=== PATIENT | male | born 1995 | race Caucasian/White ===

== ENCOUNTER 2021-05-24 11:22 | Emergency (ER) | payer OTHER, SELFPAY ==
[2021-05-24 12:07] VITALS: BP 166/93; PULSE 91; RESP 16; TEMP 36.9; O2SAT 99; BMI 37.3
[2021-05-24 12:20] LABS: MANUAL DIFF FLAG NO
[2021-05-24 12:21] LABS: Basophils Percent Auto 0.3 % (0-2); Eosinophils Absolute Auto 0.2 X10*3/uL (0.0-0.4); Eosinophils Percent Auto 1.6 % (0-4); Hematocrit 43.7 % (42.0-52.0); Imm Gran Abs Auto 0.04 X10*3/uL (0.00-0.03); Imm Gran Pct Auto 0.4 % (0.0-0.4); Lymphocytes Absolute Auto 2.5 X10*3/uL (1.2-4.9); Lymphocytes Percent Auto 26.6 % (20-40); Mean Corpuscular HGB Conc 34.3 g/dl (31.0-36.0); Mean Corpuscular Hemoglobin 29.1 pg (27.0-33.0); Mean Corpuscular Volume 84.7 fL (80.0-98.0); Mean Platelet Volume 9.7 fL (9.4-12.4); Monocytes Absolute Auto 0.8 X10*3/uL (0.1-1.2); Monocytes Percent Auto 8.7 % (2-11); Neutrophils Absolute Auto 5.9 x10*3/uL (2.0-8.3); Neutrophils Percent Auto 62.4 % (45-73); Platelet Count 254 X10*3/uL (160-400); Red Blood Count 5.16 X10*6/uL (4.60-5.80); Red Cell Distribution Width 12.4 % (11.0-16.0); White Blood Count 9.5 X10*3/uL (4.8-10.8)
[2021-05-24 12:41] LABS: Anion Gap 9 (12-20); Blood Urea Nitrogen 16 mg/dL (9-16); Calcium 9.8 mg/dL (8.4-10.2); Carbon Dioxide 29 mmol/L (22-29); Chloride 107 mmol/L (96-108); Creatinine Clr Calc Pharmacy 152.1; Estimated Glomerular Filt Rate > 60; Glucose Random 96 mg/dL (60-115); Potassium 4.2 mmol/L (3.3-5.1); Sodium 141 mmol/L (135-145)
[2021-05-24 13:27] LABS: Appearance Urine CLOUDY; Color Urine YELLOW; Glucose Urine UA NEG (NEG); Leukocyte Esterase Urine NEG (NEG); Nitrite Urine NEG (NEG); Urine Blood NEG (NEG); Urine Ketones NEG (NEG); Urine Protein NEG (NEG-TRACE)
== END 2021-05-24 17:16 | disposition left against medical advice (07) ==
PROVIDERS: Emergency Provider Emergency Medicine; PCP Internal Medicine
DX: R42 Dizziness and giddiness (principal); R11.0 Nausea; R20.0 Anesthesia of skin
CPT/HCPCS: 36415; 80048; 81003; 85025; 99283

== ENCOUNTER 2021-05-29 16:28 | Observation (INO) | payer OTHER, SELFPAY ==
--- NOTE | ~2021-05-29 | CT_ITS ---
EXAMINATION: CT ABDOMEN AND PELVIS WITH CONTRAST CLINICAL INFORMATION: Severe epigastric pain COMPARISON: None TECHNIQUE: Multidetector volumetric images were obtained from the superior aspect of the liver through the pubic symphysis following administration 85 mL of Omnipaque 350 intravenous contrast. Sagittal and coronal reformatted images were obtained on the technologist's workstation. Oral contrast: No This CT examination was performed using dose optimization techniques as appropriate, variously including the following: *Automated exposure control *Adjustment of mA and/or kV according to patient size (this includes techniques or standardized protocols for targeted exams where dose is matched to indication/reason for exam; i.e. extremities or head) *Use of iterative reconstruction technique DLP: 811 mGy-cm FINDINGS: LUNG BASES: The visualized lung bases are unremarkable. LIVER, GALLBLADDER, AND BILIARY TREE: The liver is upper limits of normal in size with normal shape and attenuation. No focal hepatic lesion or biliary ductal dilatation is present. The gallbladder is contracted but otherwise unremarkable with no evidence of radiopaque gallstones, gallbladder wall thickening, or obvious pericholecystic inflammatory changes. PANCREAS: Unremarkable. SPLEEN: Spleen is mildly enlarged measuring 13.3 cm in greatest transverse dimension. ADRENAL GLANDS: Unremarkable. KIDNEYS AND URETERS: The kidneys are normal in size, shape, and attenuation. No hydronephrosis, hydroureter, or calculi seen. A tiny Bosniak class I subcentimeter cyst is noted at the lower pole the left kidney. No solid renal masses. No perinephric stranding. BLADDER: Unremarkable. GASTROINTESTINAL TRACT: The small and large bowel are unremarkable aside from some scattered colonic diverticula without diverticulitis. The appendix is unremarkable. ABDOMINAL WALL: No significant hernia is appreciated. LYMPH NODES: Some small shotty retroperitoneal lymph nodes are seen but there is no adenopathy. VASCULAR: Unremarkable. PELVIC VISCERA: The prostate and seminal vesicles appear normal OSSEOUS STRUCTURES: Unremarkable. CT/CT abdomen pelvis w con IMPRESSION: A cause for the patient's severe epigastric pain is not found. No significant abnormality is detected aside from some mild splenomegaly. Incidental findings as described above. Fleischner guidelines were followed.
--- NOTE | ~2021-05-29 | CT_ITS ---
EXAMINATION: CT HEAD WITHOUT CONTRAST CLINICAL INFORMATION: Syncope, lethargy. COMPARISON: None TECHNIQUE: Contiguous axial imaging was performed from the skull base to vertex without intravenous administration of contrast. Coronal and sagittal reformatted images were obtained. This CT examination was performed using dose optimization techniques as appropriate, variously including the following: *Automated exposure control *Adjustment of mA and/or kV according to patient size (this includes techniques or standardized protocols for targeted exams where dose is matched to indication/reason for exam; i.e. extremities or head) *Use of iterative reconstruction technique DLP: 787.59 mGy-cm FINDINGS: There is no evidence of acute intracranial hemorrhage or territorial infarction. No abnormal mass effect or midline shift is seen. Alicia to white matter differentiation is well preserved. No extra-axial fluid collections are identified. The ventricles are normal in size. There is no abnormal attenuation within the brain parenchyma. The osseous structures and soft tissues are normal. The mastoid air cells and visualized portions of the paranasal sinuses are well aerated. CT/CT head/brain wo con IMPRESSION: No acute intracranial pathology.
[2021-05-29 17:23] VITALS: BP 155/95; PULSE 67; RESP 18; TEMP 37.1; O2SAT 100; BMI 37.3
[2021-05-29 17:42] LABS: MANUAL DIFF FLAG NO
[2021-05-29 17:43] LABS: Basophils Percent Auto 0.1 % (0-2); Eosinophils Absolute Auto 0.1 X10*3/uL (0.0-0.4); Eosinophils Percent Auto 1.1 % (0-4); Imm Gran Abs Auto 0.03 X10*3/uL (0.00-0.03); Imm Gran Pct Auto 0.3 % (0.0-0.4); Lymphocytes Absolute Auto 2.9 X10*3/uL (1.2-4.9); Lymphocytes Percent Auto 27.5 % (20-40); Mean Corpuscular HGB Conc 34.1 g/dl (31.0-36.0); Mean Corpuscular Hemoglobin 29.1 pg (27.0-33.0); Mean Corpuscular Volume 85.4 fL (80.0-98.0); Mean Platelet Volume 9.6 fL (9.4-12.4); Monocytes Absolute Auto 0.8 X10*3/uL (0.1-1.2); Monocytes Percent Auto 7.7 % (2-11); Neutrophils Absolute Auto 6.7 x10*3/uL (2.0-8.3); Neutrophils Percent Auto 63.3 % (45-73); Platelet Count 252 X10*3/uL (160-400); Red Blood Count 5.15 X10*6/uL (4.60-5.80); Red Cell Distribution Width 12.4 % (11.0-16.0); White Blood Count 10.5 X10*3/uL (4.8-10.8)
[2021-05-29 17:45] LABS: Glucose, Whole Blood 85 mg/dL (60-115)
[2021-05-29 17:55] LABS: Ethanol < 10 mg/dL
[2021-05-29 17:58] LABS: Alanine Aminotransferase 34 U/L (0-40); Albumin Level 4.5 g/dL (3.5-5.0); Alkaline Phosphatase 72 U/L (39-117); Anion Gap 11 (12-20); Aspartate Amino Transferase 19 U/L (5-37); Bilirubin Total 0.3 mg/dL (0.0-1.0); Blood Urea Nitrogen 12 mg/dL (9-16); Carbon Dioxide 27 mmol/L (22-29); Chloride 107 mmol/L (96-108); Creatinine Clr Calc Pharmacy 145.8; Estimated Glomerular Filt Rate > 60; Glucose Random 89 mg/dL (60-115); Potassium 4.1 mmol/L (3.3-5.1); Sodium 141 mmol/L (135-145); Total Protein 6.9 g/dL (6.5-8.0)
[2021-05-29 20:07] VITALS: BP 131/79; PULSE 58; RESP 16; O2SAT 99
[2021-05-29 20:31] LABS: Appearance Urine CLEAR; Color Urine YELLOW; Glucose Urine UA NEG (NEG); Leukocyte Esterase Urine NEG (NEG); Nitrite Urine NEG (NEG); Specific Gravity - Urine >= 1.030 (1.005-1.025); Urine Blood NEG (NEG); Urine Ketones NEG (NEG); Urine Protein NEG (NEG-TRACE)
--- NOTE | 2021-05-29 20:45 | ECG_ITS ---
Test Reason : Syncope Blood Pressure : / mmHG Vent. Rate : 051 BPM Atrial Rate : 051 BPM P-R Int : 160 ms QRS Dur : 094 ms QT Int : 414 ms P-R-T Axes : 037 050 041 degrees QTc Int : 381 ms Sinus bradycardia Otherwise normal ECG No previous ECGs available Referred By: Libby Jackson Electronically Signed By:Lacho Layton
[2021-05-29 20:46] LABS: Amphetamine Screen Urine Not Detected (Not Detect); Barbiturates, Urine Not Detected (Not Detect); Benzodiazepines Screen Urine Not Detected (Not Detect); Cannabinoid Screen Urine POSITIVE (Not Detect); Cocaine Screen Urine Not Detected (Not Detect); Fentanyl, urine Not Detected (Not Detect); Opiate Screen Urine Not Detected (Not Detect); Phencyclidine Screen Urine Not Detected (Not Detect)
--- NOTE | 2021-05-29 20:56 | ED_ITS ---
HPI - General Adult General Chief complaint: Altered Mental Status Stated complaint: passing out twice a day Time Seen by Provider: 05/29/21 20:44 Source: patient Mode of arrival: ambulatory Limitations: no limitations History of Present Illness HPI narrative: This is a 26-year-old male no significant medical history presenting to the emergency department with complaints of passing out multiple times per day X 2 weeks and epigastric pain X2 hours. He tells me he has been passing out daily for the past 2 weeks. He tells me that before he passes out he feels dizzy sometimes he feels like the room is spinning around him and then he passes out to the floor he tells me that when he passes out he does lose consciousness. He tells me he is able to tell when he is going to pass out because he feels ?foggy . He tells me that this is making him very scared. I asked him how he is feeling right now and he tells me he cannot think straight. He has been evaluated for this multiple times once here, and once at [facility]. He tells me that before these 2 weeks he has never had this before. He also reports int ermittent chest pain. Today he tells me he started experiencing epigastric pain it feels like a stabbing sensation in his epigastric region, nonradiating, severe. He has never had this before. He denies shortness of breath, nausea, vomiting, abdominal pain, changes in bowel habits, vision changes, chest pain, headache, vision changes, neck pain. Patient is not sexually active. He has no concerns for STDs. Onset (ago): week(s) (2) Location: abdomen Radiation: non-radiation Severity: severe Severity scale (1-10): 10 Quality: stabbing Pain Consistency: intermittent Relieving factors: none Exacerbating factors: none Treatments prior to arrival: none Related Data Allergies Allergy/AdvReac Type Severity Reaction Status Date / Time Penicillins Allergy Rash Verified 05/29/21 17:21 Review of Systems Review of Systems: Constitutional : No Weight loss, No Fever, No Chills, No Fatigue, No Malaise ENT/Mouth : No sore throat, No Rhinorrhea Eyes: No Eye Pain, No Swelling, No Redness Cardiovascular : No Chest Pain, No SOB, No Dyspnea on Exertion, No Orthopnea, No Edema, No Palpitations Respiratory : No Cough, No Sputum, No Wheezing Gastrointestinal : No Nausea, No Vomiting, No Diarrhea, No Constipation, + abdominal Pain, No Hematochezia, No Melena Genitourinary : No Dysuria, No Urinary Frequency, No Hematuria, Musculoskeletal : No joint pain, No Myalgias, No Joint Swelling Skin : No Skin Lesions, No rash Neuro : No Weakness, No Numbness, + Dizziness, No Headache Psych : No Anxiety/Panic, No Depression All other systems reviewed and are negative Yes all other systems are reviewed and are negative [facility] Past Medical History Attestation statement: The following information was validated with the patient. Source: old records reviewed and nursing notes reviewed Social History Social History Advance Directives: No Advance Directives Information Provided: No Physical Exam ED Vital Signs: Vital Signs - 24 hr 05/29/21 17:23 05/29/21 20:07 05/29/21 21:17 Temperature 98.7 F Pulse Rate 67 58 56 Respiratory Rate 18 16 Blood Pressure 155/95 H 131/79 127/72 Pulse Oximetry 100 99 05/29/21 21:19 05/29/21 21:20 Temperature Pulse Rate 60 60 Respiratory Rate Blood Pressure 130/83 132/81 Pulse Oximetry BMI result Body Mass Index 37.3 VSS Appearance: Alert.? Oriented X3.? No acute distress.? Head: Normocephalic, atraumatic, no step-offs or deformities Eyes: Pupils equal, round and reactive to light.? ENT: Pharynx normal.? Neck: Normal inspection.? Neck supple.? CVS: Normal heart rate and rhythm.? Pulses normal.? Respiratory: No respiratory distress.? Breath sounds normal.? Abdomen: Soft and nontender.? Skin: Skin warm and dry.? Normal skin color.? Normal skin turgor.? Extremities: No lower extremity edema.? No calf ttp. 5/5 strength to bilateral upper and lower extremities Back: No midline tenderness, no C-spine tenderness, full range of motion, no CVA tenderness bilaterally Neuro: Oriented X 3.? No motor deficit.? No sensory deficit. CN 2-12 intact Course Reevaluation(s) Reevaluation #1: CBC within normal limits. No acute electrolyte abnormalities. CT of the head within normal limits. CT of the abdomen pending. Orthostatic vital signs negative. UA negative. Urine toxicology positive for marijuana. Time: 23:00 Reevaluation #2: Reviewed an EKG from [facility] that shows that the ST elevation is considered early repolarization. The EKG it [facility] was done on 05/27/2021. Based off patient's history I do not feel comfortable discharging this patient home as his symptoms have been daily for the past 2 weeks. Patient would benefit from Cardiology/neurology consult to rule out arrhythmia, or different etiologies for these sudden syncopal episodes. TT Dr. Layton with EKG and history. Awaiting cardiologys response. Time: 23:34 Reevaluation #3: Patient will be admitted to the hospitalist team. Time: 00:08 Medical Decision Making MDM Narrative Medical decision making narrative: 2150 26 yo m no pmhx presents w/ dizziness and syncopal episodes X2 weeks and epigastric pain X2 hours. PE benign. Neuro non focal. PERRL b/l. EOMI. CN 2-12 intact. RRR. Lungs clear. Abdomen soft nontender nondistended. Plan labs, CT of the head and brain, urine, EKG, cardiac monitoring. Medical Records Medical records reviewed: Yes I reviewed the patient's medical records. Lab Data Lab results reviewed: Yes I reviewed the patient's lab results. Result diagrams: 05/29/21 17:34 05/29/21 17:34 Labs: Lab Results 05/29/21 05/29/21 05/29/21 Range/Units 17:27 17:34 17:34 WBC 10.5 (4.8-10.8) X10*3/uL RBC 5.15 (4.60-5.80) X10*6/uL Hgb 15.0 (14.0-18.0) g/dl Hct 44.0 (42.0-52.0) % MCV 85.4 (80.0-98.0) fL MCH 29.1 (27.0-33.0) pg MCHC 34.1 (31.0-36.0) g/dl RDW 12.4 (11.0-16.0) % Plt Count 252 (160-400) X10*3/uL MPV 9.6 (9.4-12.4) fL Immature Gran % (Auto) 0.3 (0.0-0.4) % Neut % (Auto) 63.3 (45-73) % Lymph % (Auto) 27.5 (20-40) % Luce % (Auto) 7.7 (2-11) % Eos % (Auto) 1.1 (0-4) % Baso % (Auto) 0.1 (0-2) % Lymph # (Auto) 2.9 (1.2-4.9) X10*3/uL Luce # (Auto) 0.8 (0.1-1.2) X10*3/uL Eos # (Auto) 0.1 (0.0-0.4) X10*3/uL Baso # (Auto) 0.0 (0.0-0.2) X10*3/uL Abs Immat Gran (auto) 0.03 (0.00-0.03) X10*3/uL Absolute Neuts (auto) 6.7 (2.0-8.3) x10*3/uL Absolute Nucleated RBC 0.000 (0.0-0.012) X10*3/uL Nucleated RBC % (auto) 0.0 (0.0-0.2) /100WBC Sodium 141 (135-145) mmol/L Potassium 4.1 (3.3-5.1) mmol/L Chloride 107 (96-108) mmol/L Carbon Dioxide 27 (22-29) mmol/L Anion Gap 11 L (12-20) BUN 12 (9-16) mg/dL Creatinine 0.97 (0.5-1.4) mg/dL Estim Creat Clear Calc 145.8 Estimated GFR > 60 POC Glucose 85 (60-115) mg/dL Random Glucose 89 (60-115) mg/dL Calcium 10.0 (8.4-10.2) mg/dL Total Bilirubin 0.3 (0.0-1.0) mg/dL AST 19 (5-37) U/L ALT 34 (0-40) U/L Alkaline Phosphatase 72 (39-117) U/L Troponin I High Sens (<3.5-35.0) ng/L Total Protein 6.9 (6.5-8.0) g/dL Albumin 4.5 (3.5-5.0) g/dL Urine Color Urine Appearance Urine pH (5.0-8.0) Ur Specific [place] (1.005-1.025) Urine Protein (NEG-TRACE) MG/DL Urine Glucose (UA) (NEG) MG/DL Urine Ketones (NEG) MG/DL Urine Blood (NEG) Urine Nitrite (NEG) Ur Leukocyte Esterase (NEG) Urine Opiates Screen (Not Detect) Urine Fentanyl Screen (Not Detect) Ur Barbiturates Screen (Not Detect) Ur Phencyclidine Scrn (Not Detect) Ur Amphetamines Screen (Not Detect) U Benzodiazepines Scrn (Not Detect) Urine Cocaine Screen (Not Detect) U Marijuana (THC) Screen (Not Detect) Ethyl Alcohol mg/dL 05/29/21 05/29/21 05/29/21 Range/Units 17:34 17:34 20:20 WBC (4.8-10.8) X10*3/uL RBC (4.60-5.80) X10*6/uL Hgb (14.0-18.0) g/dl Hct (42.0-52.0) % MCV (80.0-98.0) fL MCH (27.0-33.0) pg MCHC (31.0-36.0) g/dl RDW (11.0-16.0) % Plt Count (160-400) X10*3/uL MPV (9.4-12.4) fL Immature Gran % (Auto) (0.0-0.4) % Neut % (Auto) (45-73) % Lymph % (Auto) (20-40) % Luce % (Auto) (2-11) % Eos % (Auto) (0-4) % Baso % (Auto) (0-2) % Lymph # (Auto) (1.2-4.9) X10*3/uL Luce # (Auto) (0.1-1.2) X10*3/uL Eos # (Auto) (0.0-0.4) X10*3/uL Baso # (Auto) (0.0-0.2) X10*3/uL Abs Immat Gran (auto) (0.00-0.03) X10*3/uL Absolute Neuts (auto) (2.0-8.3) x10*3/uL Absolute Nucleated RBC (0.0-0.012) X10*3/uL Nucleated RBC % (auto) (0.0-0.2) /100WBC Sodium (135-145) mmol/L Potassium (3.3-5.1) mmol/L Chloride (96-108) mmol/L Carbon Dioxide (22-29) mmol/L Anion Gap (12-20) BUN (9-16) mg/dL Creatinine (0.5-1.4) mg/dL Estim Creat Clear Calc Estimated GFR POC Glucose (60-115) mg/dL Random Glucose (60-115) mg/dL Calcium (8.4-10.2) mg/dL Total Bilirubin (0.0-1.0) mg/dL AST (5-37) U/L ALT (0-40) U/L Alkaline Phosphatase (39-117) U/L Troponin I High Sens < 3.5 (<3.5-35.0) ng/L Total Protein (6.5-8.0) g/dL Albumin (3.5-5.0) g/dL Urine Color Urine Appearance Urine pH (5.0-8.0) Ur Specific [place] (1.005-1.025) Urine Protein (NEG-TRACE) MG/DL Urine Glucose (UA) (NEG) MG/DL Urine Ketones (NEG) MG/DL Urine Blood (NEG) Urine Nitrite (NEG) Ur Leukocyte Esterase (NEG) Urine Opiates Screen Not Detected (Not Detect) Urine Fentanyl Screen Not Detected (Not Detect) Ur Barbiturates Screen Not Detected (Not Detect) Ur Phencyclidine Scrn Not Detected (Not Detect) Ur Amphetamines Screen Not Detected (Not Detect) U Benzodiazepines Scrn Not Detected (Not Detect) Urine Cocaine Screen Not Detected (Not Detect) U Marijuana (THC) Screen POSITIVE H (Not Detect) Ethyl Alcohol < 10 mg/dL 05/29/21 Range/Units 20:20 WBC (4.8-10.8) X10*3/uL RBC (4.60-5.80) X10*6/uL Hgb (14.0-18.0) g/dl Hct (42.0-52.0) % MCV (80.0-98.0) fL MCH (27.0-33.0) pg MCHC (31.0-36.0) g/dl RDW (11.0-16.0) % Plt Count (160-400) X10*3/uL MPV (9.4-12.4) fL Immature Gran % (Auto) (0.0-0.4) % Neut % (Auto) (45-73) % Lymph % (Auto) (20-40) % Luce % (Auto) (2-11) % Eos % (Auto) (0-4) % Baso % (Auto) (0-2) % Lymph # (Auto) (1.2-4.9) X10*3/uL Luce # (Auto) (0.1-1.2) X10*3/uL Eos # (Auto) (0.0-0.4) X10*3/uL Baso # (Auto) (0.0-0.2) X10*3/uL Abs Immat Gran (auto) (0.00-0.03) X10*3/uL Absolute Neuts (auto) (2.0-8.3) x10*3/uL Absolute Nucleated RBC (0.0-0.012) X10*3/uL Nucleated RBC % (auto) (0.0-0.2) /100WBC Sodium (135-145) mmol/L Potassium (3.3-5.1) mmol/L Chloride (96-108) mmol/L Carbon Dioxide (22-29) mmol/L Anion Gap (12-20) BUN (9-16) mg/dL Creatinine (0.5-1.4) mg/dL Estim Creat Clear Calc Estimated GFR POC Glucose (60-115) mg/dL Random Glucose (60-115) mg/dL Calcium (8.4-10.2) mg/dL Total Bilirubin (0.0-1.0) mg/dL AST (5-37) U/L ALT (0-40) U/L Alkaline Phosphatase (39-117) U/L Troponin I High Sens (<3.5-35.0) ng/L Total Protein (6.5-8.0) g/dL Albumin (3.5-5.0) g/dL Urine Color YELLOW Urine Appearance CLEAR Urine pH 6.0 (5.0-8.0) Ur Specific [place] >= 1.030 H (1.005-1.025) Urine Protein NEG (NEG-TRACE) MG/DL Urine Glucose (UA) NEG (NEG) MG/DL Urine Ketones NEG (NEG) MG/DL Urine Blood NEG (NEG) Urine Nitrite NEG (NEG) Ur Leukocyte Esterase NEG (NEG) Urine Opiates Screen (Not Detect) Urine Fentanyl Screen (Not Detect) Ur Barbiturates Screen (Not Detect) Ur Phencyclidine Scrn (Not Detect) Ur Amphetamines Screen (Not Detect) U Benzodiazepines Scrn (Not Detect) Urine Cocaine Screen (Not Detect) U Marijuana (THC) Screen (Not Detect) Ethyl Alcohol mg/dL ECG Data Attestation: I personally reviewed and interpreted this ECG as follows: Prior ECG tracings: not available for review Interpretation: Ventricular rate of 51, OH normal, QRS normal, QT/QTC normal. EKG shows sinus bradycardia otherwise normal ECG. No ST elevations or inversions concerning for ischemia. No previous EKGs to compare with. Critical Care Time Critical Care Time Critical Care Time: No Discharge Plan Discharge Clinical Impression: Dizziness, Syncope Patient Disposition: Admitted As Inpatient
[2021-05-29 21:17] VITALS: BP 127/72; PULSE 56
[2021-05-29 21:19] VITALS: BP 130/83; PULSE 60
[2021-05-29 21:20] VITALS: BP 132/81; PULSE 60
--- NOTE | 2021-05-29 22:13 | PC.NURSE ---
20g placed in Right arm. Rn notified.
[2021-05-29] MEDS: iohexoL 350 MG/ML 100 ML INFUS..BTL IV (22:38)
[2021-05-29 23:45] LABS: Troponin-I High Sensitivity < 3.5 ng/L (<3.5-35.0)
--- NOTE | 2021-05-30 | EEG_ITS ---
This is a 16-channel EEG with an EKG lead. The patient is reported awake and drowsy during the tracing. Background EEG rhythm during wakefulness is 8 to 10 hertz, 5 to 30 microvolt posteriorly and lower amplitude fast anteriorly. Photic stimulation does not produce any significant abnormality. Hyperventilation is not performed. The patient transitioned into drowsiness with no significant abnormality. Cardiac lead does not reveal any significant abnormality. IMPRESSION: No significant abnormality noted on this electroencephalogram. MD MITCHELL Elliott/DEB / [id number]
--- NOTE | 2021-05-30 01:23 | PM.IMHP ---
History of Present Illness Date of Service: 05/30/21 Chief Complaint: syncope 26-year-old male with a past medical history of ADHD, insomnia, mood disorder, tobacco dependence, history of cannabis use; presented to the hospital today with a chief complaint of syncope. Patient reported that over the past 2 weeks he has been having multiple episodes of syncope. Reports that he had a prodrome of numbness in his hands bilaterally, lightheaded and dizziness, nausea followed by syncope lasting anywhere between 10-15 minutes; denies any blunt falls or trauma. Post episode he feels slightly confused; and continues to feel dizzy and nauseous. Also reported that he had at least 1 episode of syncope each day the past 2 weeks. Has presented to the ER at [facility], subsequently discharged home given negative workup; noted to have fingerstick glucose in 70s; given glucose which improved. Mentions that continued to have syncopal episodes hence decided to come to the ER for further evaluation. Also reports intermittent episodes of chest pains located in the center of the chest; no associated sweating. Last chest pain was 3 days ago. Denies any headaches, focal weakness. Denies any fever chills cough. Patient reports that he takes Seroquel for sleep; has been taking it for 4 years and never had any concerns about a. Also reports that he takes Vyvanse for his ADHD and Lamictal for his mood disorder. Review of all other systems is negative except mentioned above ER course: Per ER team patient's EKG was nonischemic; troponin was negative; also mentioned that cardiology was notified. CT head and CT abdomen showed no acute findings; admitted to the hospital for observation. [facility] Social History Advance Directives: No Advance Directives Information Provided: No Meds Allergies Allergy/AdvReac Type Severity Reaction Status Date / Time Penicillins Allergy Rash Verified 05/29/21 17:21 Active Medications: Current Medications Acetaminophen (Acetaminophen 325 Mg Tablet) 650 mg PO Q6H PRN PRN Reason: Pain, Mild (Pain Scale 1-3) Heparin Sodium (Porcine) (Heparin Sodium,Porcine 5,000 Unit/Ml Vial) 5,000 unit SUBCUT Q8H SRINATH Melatonin (Melatonin 3 Mg Tablet) 6 mg PO BEDTIME PRN PRN Reason: Insomnia Pharmacy Consult (Consult Rx Perform Med Rec) 1 each MISCELLANE ONCE PRN PRN Reason: Consult order Senna (Sennosides 8.6 Mg Tablet) 17.2 mg PO BEDTIME PRN PRN Reason: Constipation Sodium Chloride (0.9 % Sodium Chloride Flush 3 Ml Syringe) 3 ml IVFLUSH QSHIFT SRINATH Physical Exam Vital Signs and Narrative: Vital Signs: Last Vital Signs Temp 98.7 F 05/29/21 17:23 Pulse 60 05/29/21 21:20 Resp 16 05/29/21 20:07 BP 132/81 05/29/21 21:20 Pulse Ox 99 05/29/21 20:07 BMI result Body Mass Index 37.3 Gen: Appears be in no acute distress HEENT: NCAT, Moist mucosa. Pulmonary: Vesicular breath sounds, fair air entry CVS: Normal S1-S2 Abdomen: BS+, Soft, Nontender Extremities: Warm well perfused Neuro: Alert and awake. Results Labs CBC and Chem 7: 05/29/21 17:34 05/29/21 17:34 Labs: Laboratory Results - last 24 hr 05/29/21 05/29/21 05/29/21 17:27 17:34 17:34 MCV 85.4 MCH 29.1 MCHC 34.1 RDW 12.4 Plt Count 252 MPV 9.6 Immature Gran % (Auto) 0.3 Neut % (Auto) 63.3 Lymph % (Auto) 27.5 [place] % (Auto) 7.7 Eos % (Auto) 1.1 Baso % (Auto) 0.1 Lymph # (Auto) 2.9 [place] # (Auto) 0.8 Eos # (Auto) 0.1 Baso # (Auto) 0.0 Abs Immat Gran (auto) 0.03 Absolute Neuts (auto) 6.7 Absolute Nucleated RBC 0.000 Nucleated RBC % (auto) 0.0 Anion Gap 11 L Estim Creat Clear Calc 145.8 Estimated GFR > 60 POC Glucose 85 Random Glucose 89 Calcium 10.0 Total Bilirubin 0.3 AST 19 ALT 34 Alkaline Phosphatase 72 Total Protein 6.9 Albumin 4.5 Urine Color Urine Appearance Urine pH Ur Specific [place] Urine Protein Urine Glucose (UA) Urine Ketones Urine Blood Urine Nitrite Ur Leukocyte Esterase Urine Opiates Screen Urine Fentanyl Screen Ur Barbiturates Screen Ur Phencyclidine Scrn Ur Amphetamines Screen U Benzodiazepines Scrn Urine Cocaine Screen U Marijuana (THC) Screen Ethyl Alcohol 05/29/21 05/29/21 05/29/21 17:34 20:20 20:20 MCV MCH MCHC RDW Plt Count MPV Immature Gran % (Auto) Neut % (Auto) Lymph % (Auto) [place] % (Auto) Eos % (Auto) Baso % (Auto) Lymph # (Auto) [place] # (Auto) Eos # (Auto) Baso # (Auto) Abs Immat Gran (auto) Absolute Neuts (auto) Absolute Nucleated RBC Nucleated RBC % (auto) Anion Gap Estim Creat Clear Calc Estimated GFR POC Glucose Random Glucose Calcium Total Bilirubin AST ALT Alkaline Phosphatase Total Protein Albumin Urine Color YELLOW Urine Appearance CLEAR Urine pH 6.0 Ur Specific [place] >= 1.030 H Urine Protein NEG Urine Glucose (UA) NEG Urine Ketones NEG Urine Blood NEG Urine Nitrite NEG Ur Leukocyte Esterase NEG Urine Opiates Screen Not Detected Urine Fentanyl Screen Not Detected Ur Barbiturates Screen Not Detected Ur Phencyclidine Scrn Not Detected Ur Amphetamines Screen Not Detected U Benzodiazepines Scrn Not Detected Urine Cocaine Screen Not Detected U Marijuana (THC) Screen POSITIVE H Ethyl Alcohol < 10 Imaging Radiologist's Impressions: Impressions Abdomen/Pelvis CT 05/29/21 22:45 IMPRESSION: A cause for the patient's severe epigastric pain is not found. No significant abnormality is detected aside from some mild splenomegaly. Incidental findings as described above. Fleischner guidelines were followed. Head CT 05/29/21 22:45 IMPRESSION: No acute intracranial pathology. Assessment and Plan (1) Syncope: Status: Acute Plan 26-year-old male with a past medical history of ADHD, insomnia, mood disorder, tobacco dependence, history of cannabis use; presented to the hospital today with a chief complaint of syncope. Patient reported that over the past 2 weeks he has been having multiple episodes of syncope. Recurrent syncope: EKG showed sinus Ed to 54; patient had a prodrome of dizziness-like room spinning, followed by nausea; question vasovagal. Exam nonfocal, CT head showed no acute findings Patient on Seroquel at home- currently orthostatics negative; QTC within normal limits; patient reports he has been taking Seroquel for many years and never had any symptoms like this in the past. Will also obtain EEG. 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 For all other chronic conditions, home medications continued DVT prophylaxis: Subcu heparin Code status: Full code Quality Stroke Does the patient have a stroke diagnosis?: No VTE Prior VTE?: No VTE Risk Level:: Medical - moderate - high VTE Device Contraindication: Treatment Not Indicated VTE Drug Contraindication: N/A - Med Ordered
[2021-05-30 02:28] VITALS: BP 142/81; PULSE 55; RESP 16; TEMP 36.7; O2SAT 98
[2021-05-30] MEDS: Heparin Sodium,Porcine 5,000 UNIT/ML VIAL 5000 UNIT SUBCUT ×3 (03:28→17:43)
--- NOTE | 2021-05-30 03:35 | PC.NURSE ---
Assumed care of pt Pt assisted to stand and pivot from stretcher to hospital bed. Per pt, feel dizzy again. Per pt, room is spinning. Pt attached to cardiac monitors Pt tolerated well Denies any pain Will continue to monitor
--- NOTE | 2021-05-30 03:36 | PC.NURSE ---
Explained plan to pt: EEG, Echo and cardiac consult in AM Pt verbalized understanding Will continue to monitor
[2021-05-30 06:45] LABS: COVID-19 Test Negative (Negative); IDNOW Serial# 16C4AD1C
[2021-05-30 07:11] LABS: MANUAL DIFF FLAG NO
[2021-05-30 07:21] LABS: Basophils Percent Auto 0.3 % (0-2); Eosinophils Absolute Auto 0.1 X10*3/uL (0.0-0.4); Eosinophils Percent Auto 1.2 % (0-4); Hemoglobin 14.8 g/dl (14.0-18.0); Imm Gran Abs Auto 0.04 X10*3/uL (0.00-0.03); Imm Gran Pct Auto 0.4 % (0.0-0.4); Lymphocytes Absolute Auto 2.4 X10*3/uL (1.2-4.9); Lymphocytes Percent Auto 22.8 % (20-40); Mean Corpuscular HGB Conc 33.6 g/dl (31.0-36.0); Mean Corpuscular Hemoglobin 28.6 pg (27.0-33.0); Mean Corpuscular Volume 85.1 fL (80.0-98.0); Mean Platelet Volume 9.7 fL (9.4-12.4); Monocytes Absolute Auto 0.8 X10*3/uL (0.1-1.2); Neutrophils Percent Auto 67.3 % (45-73); Platelet Count 257 X10*3/uL (160-400); Red Blood Count 5.17 X10*6/uL (4.60-5.80); Red Cell Distribution Width 12.4 % (11.0-16.0); White Blood Count 10.4 X10*3/uL (4.8-10.8)
--- NOTE | 2021-05-30 07:31 | PHA.MEDREC ---
Pharmacy Consult ? Medication Reconciliation Pharmacy has completed the medication reconciliation. Ask patient if someone could bring in his vyvanse and he reported that he does not need it. Naya Esteves, PharmD
[2021-05-30 07:33] LABS: Anion Gap 13 (12-20); Blood Urea Nitrogen 10 mg/dL (9-16); Calcium 9.9 mg/dL (8.4-10.2); Carbon Dioxide 28 mmol/L (22-29); Chloride 106 mmol/L (96-108); Creatinine Clr Calc Pharmacy 150.5; Estimated Glomerular Filt Rate > 60; Glucose Random 104 mg/dL (60-115); Potassium 4.9 mmol/L (3.3-5.1); Sodium 142 mmol/L (135-145)
--- NOTE | 2021-05-30 08:30 | CA_ITS ---
Transthoracic Echocardiogram Patient (Last, First, Middle): Estrdaa James, Gender: Male Date of : 1995 Age: 26 Procedure Date: 05/30/2021 Procedure Type: Transthoracic Echocardiogram Location: ER Height: 177.8 cm Weight: 117.94 kg BSA: 2.33 m2 Heart Rate: bpm BP: 115 / 61 mmHg Solar Project Manager: YR/TO Referring MD: Sean Hernandez MD Symptoms: syncope Study Quality: Fair Conclusions: - Normal study. Findings Left Ventricle Normal left ventricular size, thickness, systolic function, and wall motion. The visually estimated ejection fraction is between 55-60%. Diastolic function is normal for age. Right Ventricle Normal right ventricular cavity size and systolic function. Atria Both atria are normal in size. Aortic Valve Normal aortic valve structure and function. There is no aortic valve stenosis. There is no aortic valve regurgitation. Mitral Valve Normal mitral valve structure and function. There is no mitral valve regurgitation. There is no mitral valve stenosis. Pulmonic Valve Normal pulmonic valve structure and function. There is no pulmonic valve regurgitation. Tricuspid Valve Normal tricuspid valve structure and function. There is trace tricuspid valve regurgitation. Tricuspid regurgitation envelope is inadequate for calculation of right ventricular systolic pressure. Normal right atrial pressure. Great Vessels All visible segments of the aorta are normal in size. The visualized portions of the pulmonary artery and branches are normal. Venous The inferior vena cava is normal in size and collapses greater than 50% with inspiration. Pericardium/Pleural There is no evidence of pericardial effusion. Prior Study Comparison No prior study available for comparison. Measurements 2D Linear Measurements IVSd: 0.82 0.6-0.9/0.6-1.0 cm LVIDd: 4.51 3.9-5.3/4.2-5.9 cm LVIDd Index: 1.94 2.4-3.2/2.2-3.1 cm/m2 LVIDs: 2.68 2.0-3.6 cm LVPWd: 0.88 0.7-1.1 cm Ao Root: 3.60 2.1-3.5 cm LA Diam: 3.10 2.7-3.8/3.0-4.0 cm LAIDs Index: 1.33 1.5-2.3 cm/m2 LV Mass: 153.66 67-162/88-224 g LV Mass Index: 65.95 43-95/49-115 g/m2 LVOT Diam: 2.20 3.0+(-)1.3 cm Mitral Valve MV Pk E: 0.74 MV PK A: 0.51 MV Decel Time: 205.00 E/A: 1.50 E'Lateral: 13.80 E'Medial: 9.90 E/E' Med: 7.50 E/E' Lat: 5.40 PHT: 60.00 MVA PHT: 3.67 Decel Mcculloch: 3.61 Aortic Valve AoV Pk Aubrey: 1.14 AoV Mn Aubrey: 0.76 AoV VTI: 0.25 AoV Pk Grad: 5.00 Aov Mn Grad: 3.00 RICARDO Cont.VTI: 3.21 LVOT LVOT Pk Aubrey: 0.99 LVOT Mn Aubrey: 0.66 LVOT VTI: 0.21 LVOT Pk Grad: 4.00 LVOT Mn Grad: 2.00 LVOT Diam: 2.20 LVOT Area: 3.80 Diastolic Function MV Pk E: 0.74 MV Pk A: 0.51 E/A: 1.50 E'Medial: 9.90 E/E' Med: 7.50 E' Laterial: 13.80 E/E' Lat: 5.40 Right Ventricle TAPSE (mm): 19.40 TVS' Aubrey: 13.70 Tricuspid Valve RA Press: 3.00 Great Vessels Aorta Ao Root-2D: 3.60 2.0-3.7 cm Ao Asc: 2.90 2.1-3.4 cm Updated in Other Vendor System with Status of Final Lacho Layton MD electronically signed on 05/30/2021 1:36:48 PM with status of Final
[2021-05-30 08:35] VITALS: BP 115/61; PULSE 59; RESP 26; TEMP 36.7; O2SAT 98
[2021-05-30] MEDS: 0.9 % Sodium Chloride Flush 3 ML SYRINGE IVFLUSH (08:52)
--- NOTE | 2021-05-30 09:28 | PM.CNCAR ---
History of Present Illness History of Present Illness Date of Service: 05/30/21 Requesting physician: Wilman Rosas Chief complaint: Rec syncope Narrative: 26-year-old gentleman who is presenting for excessive sleepiness. He was at [facility] end of May for similar complaints. He has background history of bipolar disorder. He has been taking Seroquel, lamotrigine and Vyvanse. he is saying that over the last 2 weeks he has been experiencing excessive sleepiness and drowsiness. He clearly has not passed out or had syncope but is describing that he gets very tired and sleepy. she smokes marijuana. Denies any other drug abuse. Occasionally he feels chest pains. He also has background of panic attacks And bipolar disorder. [facility] Social History Social History Advance Directives: No Advance Directives Information Provided: No Meds Allergies Allergy/AdvReac Type Severity Reaction Status Date / Time Penicillins Allergy Rash Verified 05/29/21 17:21 Active Medications: Current Medications Acetaminophen (Acetaminophen 325 Mg Tablet) 650 mg PO Q6H PRN PRN Reason: Pain, Mild (Pain Scale 1-3) Heparin Sodium (Porcine) (Heparin Sodium,Porcine 5,000 Unit/Ml Vial) 5,000 unit SUBCUT Q8H [facility] Last Admin: 05/30/21 08:50 Dose: 5,000 unit Documented by: Melatonin (Melatonin 3 Mg Tablet) 6 mg PO BEDTIME PRN PRN Reason: Insomnia Pharmacy Consult (Consult Rx Perform Med Rec) 1 each MISCELLANE ONCE PRN PRN Reason: Consult order Senna (Sennosides 8.6 Mg Tablet) 17.2 mg PO BEDTIME PRN PRN Reason: Constipation Sodium Chloride (0.9 % Sodium Chloride Flush 3 Ml Syringe) 3 ml IVFLUSH QSHIFT [facility] Last Admin: 05/30/21 08:52 Dose: 3 ml Documented by: Home Medications Medication Instructions Recorded Confirmed Last Taken Type lamotrigine 250 mg tablet,extended 1 tab PO DAILY 05/30/21 05/30/21 Unknown History release 24 hr lisdexamfetamine 60 mg capsule 60 mg DAILY 05/30/21 05/30/21 Unknown History (Vyvanse) quetiapine 50 mg tablet 100 mg PO BEDTIME 05/30/21 05/30/21 Unknown History Physical Exam Vital Signs: Vital Signs: Last Vital Signs Temp 98.0 F 05/30/21 08:35 Pulse 59 05/30/21 08:35 Resp 26 H 05/30/21 08:35 BP 115/61 05/30/21 08:35 Pulse Ox 98 05/30/21 08:35 BMI result Body Mass Index 37.3 GENERAL APPEARANCE: in no acute distress, pleasant. NECK: no carotid bruit, no jugular venous distention. SKIN: no suspicious lesions, warm and dry. HEART: no murmurs, regular rate and rhythm. LUNGS: clear to auscultation bilaterally. ABDOMEN: soft, nontender. EXTREMITIES: no edema. PERIPHERAL PULSES: equal. NEUROLOGIC: No gross deficits, AAO X 3 Objective Labs and Meds Result diagrams: 05/30/21 07:00 05/30/21 07:00 Lab results: Laboratory Results - last 24 hr 05/29/21 05/29/21 05/29/21 17:27 17:34 17:34 WBC 10.5 RBC 5.15 Hgb 15.0 Hct 44.0 MCV 85.4 MCH 29.1 MCHC 34.1 RDW 12.4 Plt Count 252 MPV 9.6 Immature Gran % (Auto) 0.3 Neut % (Auto) 63.3 Lymph % (Auto) 27.5 Bell % (Auto) 7.7 Eos % (Auto) 1.1 Baso % (Auto) 0.1 Lymph # (Auto) 2.9 Bell # (Auto) 0.8 Eos # (Auto) 0.1 Baso # (Auto) 0.0 Abs Immat Gran (auto) 0.03 Absolute Neuts (auto) 6.7 Absolute Nucleated RBC 0.000 Nucleated RBC % (auto) 0.0 Sodium 141 Potassium 4.1 Chloride 107 Carbon Dioxide 27 Anion Gap 11 L BUN 12 Creatinine 0.97 Estim Creat Clear Calc 145.8 Estimated GFR > 60 POC Glucose 85 Random Glucose 89 Calcium 10.0 Total Bilirubin 0.3 AST 19 ALT 34 Alkaline Phosphatase 72 Troponin I High Sens Total Protein 6.9 Albumin 4.5 Urine Color Urine Appearance Urine pH Ur Specific [place] Urine Protein Urine Glucose (UA) Urine Ketones Urine Blood Urine Nitrite Ur Leukocyte Esterase Urine Opiates Screen Urine Fentanyl Screen Ur Barbiturates Screen Ur Phencyclidine Scrn Ur Amphetamines Screen U Benzodiazepines Scrn Urine Cocaine Screen U Marijuana (THC) Screen Ethyl Alcohol COVID-19 (JIN) COVID-19 [employer] Com 05/29/21 05/29/21 05/29/21 17:34 17:34 20:20 WBC RBC Hgb Hct MCV MCH MCHC RDW Plt Count MPV Immature Gran % (Auto) Neut % (Auto) Lymph % (Auto) Bell % (Auto) Eos % (Auto) Baso % (Auto) Lymph # (Auto) Bell # (Auto) Eos # (Auto) Baso # (Auto) Abs Immat Gran (auto) Absolute Neuts (auto) Absolute Nucleated RBC Nucleated RBC % (auto) Sodium Potassium Chloride Carbon Dioxide Anion Gap BUN Creatinine Estim Creat Clear Calc Estimated GFR POC Glucose Random Glucose Calcium Total Bilirubin AST ALT Alkaline Phosphatase Troponin I High Sens < 3.5 Total Protein Albumin Urine Color Urine Appearance Urine pH Ur Specific [place] Urine Protein Urine Glucose (UA) Urine Ketones Urine Blood Urine Nitrite Ur Leukocyte Esterase Urine Opiates Screen Not Detected Urine Fentanyl Screen Not Detected Ur Barbiturates Screen Not Detected Ur Phencyclidine Scrn Not Detected Ur Amphetamines Screen Not Detected U Benzodiazepines Scrn Not Detected Urine Cocaine Screen Not Detected U Marijuana (THC) Screen POSITIVE H Ethyl Alcohol < 10 COVID-19 (JIN) COVID-19 [employer] Com 05/29/21 05/30/21 05/30/21 20:20 06:22 07:00 WBC 10.4 RBC 5.17 Hgb 14.8 Hct 44.0 MCV 85.1 MCH 28.6 MCHC 33.6 RDW 12.4 Plt Count 257 MPV 9.7 Immature Gran % (Auto) 0.4 Neut % (Auto) 67.3 Lymph % (Auto) 22.8 Bell % (Auto) 8.0 Eos % (Auto) 1.2 Baso % (Auto) 0.3 Lymph # (Auto) 2.4 Bell # (Auto) 0.8 Eos # (Auto) 0.1 Baso # (Auto) 0.0 Abs Immat Gran (auto) 0.04 H Absolute Neuts (auto) 7.0 Absolute Nucleated RBC 0.000 Nucleated RBC % (auto) 0.0 Sodium Potassium Chloride Carbon Dioxide Anion Gap BUN Creatinine Estim Creat Clear Calc Estimated GFR POC Glucose Random Glucose Calcium Total Bilirubin AST ALT Alkaline Phosphatase Troponin I High Sens Total Protein Albumin Urine Color YELLOW Urine Appearance CLEAR Urine pH 6.0 Ur Specific [place] >= 1.030 H Urine Protein NEG Urine Glucose (UA) NEG Urine Ketones NEG Urine Blood NEG Urine Nitrite NEG Ur Leukocyte Esterase NEG Urine Opiates Screen Urine Fentanyl Screen Ur Barbiturates Screen Ur Phencyclidine Scrn Ur Amphetamines Screen U Benzodiazepines Scrn Urine Cocaine Screen U Marijuana (THC) Screen Ethyl Alcohol COVID-19 (JIN) Negative COVID-19 Clin Com See Note 05/30/21 07:00 WBC RBC Hgb Hct MCV MCH MCHC RDW Plt Count MPV Immature Gran % (Auto) Neut % (Auto) Lymph % (Auto) Bell % (Auto) Eos % (Auto) Baso % (Auto) Lymph # (Auto) Bell # (Auto) Eos # (Auto) Baso # (Auto) Abs Immat Gran (auto) Absolute Neuts (auto) Absolute Nucleated RBC Nucleated RBC % (auto) Sodium 142 Potassium 4.9 Chloride 106 Carbon Dioxide 28 Anion Gap 13 BUN 10 Creatinine 0.94 Estim Creat Clear Calc 150.5 Estimated GFR > 60 POC Glucose Random Glucose 104 Calcium 9.9 Total Bilirubin AST ALT Alkaline Phosphatase Troponin I High Sens Total Protein Albumin Urine Color Urine Appearance Urine pH Ur Specific [place] Urine Protein Urine Glucose (UA) Urine Ketones Urine Blood Urine Nitrite Ur Leukocyte Esterase Urine Opiates Screen Urine Fentanyl Screen Ur Barbiturates Screen Ur Phencyclidine Scrn Ur Amphetamines Screen U Benzodiazepines Scrn Urine Cocaine Screen U Marijuana (THC) Screen Ethyl Alcohol COVID-19 (JIN) COVID-19 Clin Com Imaging Radiologist's impression: Impressions Abdomen/Pelvis CT 05/29/21 22:45 IMPRESSION: A cause for the patient's severe epigastric pain is not found. No significant abnormality is detected aside from some mild splenomegaly. Incidental findings as described above. Fleischner guidelines were followed. Head CT 05/29/21 22:45 IMPRESSION: No acute intracranial pathology. Assessment and Plan (1) Excessive sleepiness: Status: Acute Plan 26-year-old gentleman who has background of bipolar disorder on medications presenting for excessive sleepiness. There is no clear syncopal episode. He just felt excessively sleepy and fatigued and had to go to sleep multiple times over the last 2 weeks. No background epilepsy. I think medications potentially are playing a role in this. He is on telemetry being monitored in currently workup is normal. No EKG changes. He is complaining of bilateral hand numbness which has been present for a month. These symptoms are persistent and not related to when he is hyperventilating with panic attacks. Consider involving Neurology for further assessment. Thank you for allowing me to participate in the care of your patient. Please feel free to contact me if you have any questions. Procedures Date of Service Date of Service: 05/30/21
--- NOTE | 2021-05-30 10:28 | PC.NURSE ---
Pt currently at EEG. ECHO came and did their exam this AM. pt offering no complaints this AM. Medicated per mar. Denies dizziness and nausea this morning.
--- NOTE | 2021-05-30 11:37 | PM.EVENT ---
Event Note Date of Service: 05/30/21 Event Note: day hospitalist update S: C/o numb hands with hyperventilation. No lightheadedness. No palpitations. No chest pain. O: T 98, BP 115/61, P 59, R 26, SaO2 98 on RA gen NAD HEENT MMM neck supple lungs CTAB CV no m/r/g abd soft/NT ext no edema neuro no focal findings A/P: hospital d#1 26yo M with bipolar disorder + ADHD on lamotrigine + Vyvanse admitted for syncopal episodes - no arrhythmias on telemetry or EKG - labs normal - Cardiology consulted appreciated, no cardiac disease suspected - EEG + TTE pending - in the end, suspect effect of quetiapine- will d/c
[2021-05-30 11:56] LABS: Vitamin B12 653 pg/mL (200-900)
--- NOTE | 2021-05-30 15:02 | MHC.CM.PN ---
Met with patient in regards to discharge planning. Patient lives alone, ambulates independently and had no services prior to coming to the hospital. No services anticipated to be needed because patient is not homebound. PCP verified. Patient denies having a HCP. Information provided. Patient declines to complete one at this time. Obs notice explained and signed. Patient received 3 Pfizer vaccines. Patient's friend will transport patient home when medically stable. Continue to monitor for d/c needs.
[2021-05-30 20:03] VITALS: BP 137/78; PULSE 75; RESP 18; TEMP 36.2; O2SAT 99
[2021-05-30] MEDS: Melatonin 3 MG TABLET 6 MG PO (22:25)
[2021-05-31 05:45] VITALS: BP 126/87; PULSE 68; RESP 18; TEMP 36.3; O2SAT 98
[2021-05-31 09:49] VITALS: BP 127/72; PULSE 68; RESP 20
--- NOTE | 2021-05-31 10:14 | P.DS_ITS ---
DS: Providers Provider Date of Service: 05/31/21 Date of admission: 05/30/21 01:18 Date of discharge: 05/31/21 Primary care physician: Sergei Jamison DO Consults: 05/30/21 01:18 Consult to Cardiology Routine Consulting Provider: Lacho Layton Reason for consultation: rec syncope DS: Diagnosis Discharge Diagnosis (1) Excessive sleepiness: Status: Acute (2) Syncope: Status: Acute DS: Summary Hospital Course Hospital Course: from admission history and physical by Sean Hernandez, 05/30/21: 26-year-old male with a past medical history of ADHD, insomnia, mood disorder, tobacco dependence, history of cannabis use; presented to the hospital today with a chief complaint of syncope.? Patient reported that over the past 2 weeks he has been having multiple episodes of syncope.? Reports that he had a prodrome of numbness in his hands bilaterally, lightheaded and dizziness, nausea followed by syncope lasting anywhere between 10-15 m inutes; denies any blunt falls or trauma.? Post episode he feels slightly confused; and continues to feel dizzy and nauseous.? Also reported that he had at least 1 episode of syncope each day the past 2 weeks.? Has presented to the ER at [facility], subsequently discharged home given negative workup; noted to have fingerstick glucose in 70s; given glucose which improved.? Mentions that continued to have syncopal episodes hence decided to come to the ER for further evaluation.? Also reports intermittent episodes of chest pains located in the center of the chest; no associated sweating.? Last chest pain was 3 days ago.? Denies any? headaches, focal weakness.? Denies any fever chills cough.? Patient reports that he takes Seroquel for sleep; has been taking it for 4 years and never had any concerns about a.? Also reports that he takes Vyvanse for his ADHD and Lamictal for his mood disorder.? Review of all other systems is negative except mentioned above -year-old gentleman who has background of bipolar disorder on medications presenting for excessive sleepiness.? There is no clear syncopal episode.? He just felt excessively sleepy and fatigued and had to go to sleep multiple times over the last 2 weeks.? No background epilepsy.? I think medications potentially are playing a role in this.? He is on telemetry being monitored in currently workup is normal. No EKG changes.? He is complaining of bilateral hand numbness which has been present for a month.? These symptoms are persistent and not related to when he is hyperventilating with panic attacks.? Consider involving Neurology for further assessment.? Thank you for allowing me to participate in the care of your patient.? Please feel free to contact me if you have any questions ER course: Per ER team patient's EKG was nonischemic; troponin was negative; also mentioned that cardiology was notified. CT head and CT abdomen showed no acute findings; admitted to the hospital for observation. 26yo M with bipolar disorder + ADHD on lamotrigine + Vyvanse admitted for syncopal episodes. No arrhythmias on telemetry or EKG. Labs normal. EEG and TTE normal. Cardiology consulted and suspected that his episodes were more in line with excessive sleepiness rather than actual syncope. In the end, symptoms likely due to quetiapine and cannabis use, and he was counseled to discontinue these. He was discharged home with instructions to follow-up with his primary care doctor in 1 to 2 weeks. Time Spent with Patient Time attestation: Total time spent providing and/or coordinating discharge services: 20 Discharge coordination time: Less than 30 minutes Quality: Stroke Does the patient have a stroke diagnosis?: No Physical Exam Vital Signs: Vital Signs: Last Vital Signs Temp 97.4 F 05/31/21 05:45 Pulse 68 05/31/21 09:49 Resp 20 05/31/21 09:49 BP 127/72 05/31/21 09:49 Pulse Ox 98 05/31/21 05:45 BMI result Body Mass Index 37.3 Gen: in no acute distress HEENT: sclera anicteric, moist mucus membranes Neck: supple Lungs: clear to auscultation bilaterally Heart: regular rate and rhythm, no murmurs Abd: soft, non-tender, non-distended Ext: no edema Skin: warm/well-perfused Neuro: alert and oriented x3, no focal findings Psych: appropriate affect DS: Data Data Completed and Pending Completed studies during hospitalization [Text1]: Laboratory Results WBC 10.4 X10*3/uL (4.8-10.8) 05/30/21 07:00 RBC 5.17 X10*6/uL (4.60-5.80) 05/30/21 07:00 Hgb 14.8 g/dl (14.0-18.0) 05/30/21 07:00 Hct 44.0 % (42.0-52.0) 05/30/21 07:00 MCV 85.1 fL (80.0-98.0) 05/30/21 07:00 MCH 28.6 pg (27.0-33.0) 05/30/21 07:00 MCHC 33.6 g/dl (31.0-36.0) 05/30/21 07:00 RDW 12.4 % (11.0-16.0) 05/30/21 07:00 Plt Count 257 X10*3/uL (160-400) 05/30/21 07:00 MPV 9.7 fL (9.4-12.4) 05/30/21 07:00 Immature Gran % (Auto) 0.4 % (0.0-0.4) 05/30/21 07:00 Neut % (Auto) 67.3 % (45-73) 05/30/21 07:00 Lymph % (Auto) 22.8 % (20-40) 05/30/21 07:00 [place] % (Auto) 8.0 % (2-11) 05/30/21 07:00 Eos % (Auto) 1.2 % (0-4) 05/30/21 07:00 Baso % (Auto) 0.3 % (0-2) 05/30/21 07:00 Lymph # (Auto) 2.4 X10*3/uL (1.2-4.9) 05/30/21 07:00 [place] # (Auto) 0.8 X10*3/uL (0.1-1.2) 05/30/21 07:00 Eos # (Auto) 0.1 X10*3/uL (0.0-0.4) 05/30/21 07:00 Baso # (Auto) 0.0 X10*3/uL (0.0-0.2) 05/30/21 07:00 Abs Immat Gran (auto) 0.04 X10*3/uL (0.00-0.03) H 05/30/21 07:00 Absolute Neuts (auto) 7.0 x10*3/uL (2.0-8.3) 05/30/21 07:00 Absolute Nucleated RBC 0.000 X10*3/uL (0.0-0.012) 05/30/21 07:00 Nucleated RBC % (auto) 0.0 /100WBC (0.0-0.2) 05/30/21 07:00 Sodium 142 mmol/L (135-145) 05/30/21 07:00 Potassium 4.9 mmol/L (3.3-5.1) 05/30/21 07:00 Chloride 106 mmol/L (96-108) 05/30/21 07:00 Carbon Dioxide 28 mmol/L (22-29) 05/30/21 07:00 Anion Gap 13 (12-20) 05/30/21 07:00 BUN 10 mg/dL (9-16) 05/30/21 07:00 Creatinine 0.94 mg/dL (0.5-1.4) 05/30/21 07:00 Estim Creat Clear Calc 150.5 05/30/21 07:00 Estimated GFR > 60 05/30/21 07:00 POC Glucose 85 mg/dL (60-115) 05/29/21 17:27 Random Glucose 104 mg/dL (60-115) 05/30/21 07:00 Calcium 9.9 mg/dL (8.4-10.2) 05/30/21 07:00 Total Bilirubin 0.3 mg/dL (0.0-1.0) 05/29/21 17:34 AST 19 U/L (5-37) 05/29/21 17:34 ALT 34 U/L (0-40) 05/29/21 17:34 Alkaline Phosphatase 72 U/L (39-117) 05/29/21 17:34 Troponin I High Sens < 3.5 ng/L (<3.5-35.0) 05/29/21 17:34 Total Protein 6.9 g/dL (6.5-8.0) 05/29/21 17:34 Albumin 4.5 g/dL (3.5-5.0) 05/29/21 17:34 Vitamin B12 653 pg/mL (200-900) 05/30/21 07:00 Urine Color YELLOW 05/29/21 20:20 Urine Appearance CLEAR 05/29/21 20:20 Urine pH 6.0 (5.0-8.0) 05/29/21 20:20 Ur Specific [place] >= 1.030 (1.005-1.025) H 05/29/21 20:20 Urine Protein NEG MG/DL (NEG-TRACE) 05/29/21 20:20 Urine Glucose (UA) NEG MG/DL (NEG) 05/29/21 20:20 Urine Ketones NEG MG/DL (NEG) 05/29/21 20:20 Urine Blood NEG (NEG) 05/29/21 20:20 Urine Nitrite NEG (NEG) 05/29/21 20:20 Ur Leukocyte Esterase NEG (NEG) 05/29/21 20:20 Urine Opiates Screen Not Detected (Not Detect) 05/29/21 20:20 Urine Fentanyl Screen Not Detected (Not Detect) 05/29/21 20:20 Ur Barbiturates Screen Not Detected (Not Detect) 05/29/21 20:20 Ur Phencyclidine Scrn Not Detected (Not Detect) 05/29/21 20:20 Ur Amphetamines Screen Not Detected (Not Detect) 05/29/21 20:20 U Benzodiazepines Scrn Not Detected (Not Detect) 05/29/21 20:20 Urine Cocaine Screen Not Detected (Not Detect) 05/29/21 20:20 U Marijuana (THC) Screen POSITIVE (Not Detect) H 05/29/21 20:20 Ethyl Alcohol < 10 mg/dL 05/29/21 17:34 COVID-19 (JIN) Negative (Negative) 05/30/21 06:22 COVID-19 Clin Com See Note 05/30/21 06:22 Impressions Abdomen/Pelvis CT 05/29/21 22:45 IMPRESSION: A cause for the patient's severe epigastric pain is not found. No significant abnormality is detected aside from some mild splenomegaly. Incidental findings as described above. Fleischner guidelines were followed. Head CT 05/29/21 22:45 IMPRESSION: No acute intracranial pathology. TTE 05/30/21 Conclusions: - Normal study.? EEG 05/30/21 IMPRESSION:? No significant abnormality noted on this electroencephalogram. Discharge Plan Discharge Patient Disposition: Home, Self-Care Discharge Diagnosis: syncope excessive sleepiness Referrals: Sergei Jamison DO [Primary Care Provider] - 1 Week Discharge Medications: Continued Vyvanse 60 mg Capsule 60 mg DAILY 0RF lamotrigine 250 mg tablet extended release 24hr 1 tab PO DAILY 0RF Discontinued quetiapine 50 mg tablet 100 mg PO BEDTIME 0RF Discharge Orders: Discharge Order (Routine); Ordered 05/31/21 Ordered By: Wilman Rosas Diet: advance to usual diet Activity on Discharge: As tolerated Stand Alone Forms: Patient Portal Discharge page Care Plan Goals: resolution of syncope Health Concerns: syncope Plan of Treatment: stop quetiapine stop cannabis see your primary care doctor in 1-2 weeks Assessment: see Discharge Summary Patient Instructions: Cannabis Abuse (DC)
--- NOTE | 2021-05-31 10:24 | PC.NURSE ---
Pt A&Ox3, no complaints of pain, states he was slightly dizzy upon waking but ambulatory with no lightheadedness or dizziness. [facility] for DC[facility]
== END 2021-05-31 11:49 | disposition home or self-care (01) ==
LOC: HO.ED 05-30 00:08 → HO.EDOVER 05-30 01:37
PROVIDERS: Physician Assistant; Admitting Provider Hospitalist; Emergency Provider Emergency Medicine Emergency Medical Services; PCP Internal Medicine Infectious Disease; Visit Provider Family Medicine
DX: G47.10 Hypersomnia, unspecified (principal); R55 Syncope and collapse; R10.13 Epigastric pain; F90.9 Attention-deficit hyperactivity disorder, unspecified type; F31.9 Bipolar disorder, unspecified; F41.0 Panic disorder [episodic paroxysmal anxiety]; F12.90 Cannabis use, unspecified, uncomplicated; Z72.0 Tobacco use; Z20.822 Contact with and (suspected) exposure to COVID-19; Z88.0 Allergy status to penicillin; Z79.899 Other long term (current) drug therapy
CPT/HCPCS: 36415; 70450; 74177; 80048; 80053; 80307; 81003; 82077; 82607; 82947; 84484; 85025; 87635; 93005; 93306; 95816; 96372; 99219; 99285; Q9967

== ENCOUNTER 2021-07-01 02:32 | Emergency (ER) | payer OTHER, SELFPAY ==
--- NOTE | ~2021-07-01 | CT_ITS ---
EXAMINATION: CT ABDOMEN AND PELVIS WITHOUT CONTRAST CLINICAL INFORMATION: Left flank pain COMPARISON: None TECHNIQUE: Multidetector volumetric imaging was performed from the superior aspect of the liver through the pubic symphysis. Sagittal and coronal reformatted images were obtained on the technologist's workstation. This CT examination was performed using dose optimization techniques as appropriate, variously including the following: *Automated exposure control *Adjustment of mA and/or kV according to patient size (this includes techniques or standardized protocols for targeted exams where dose is matched to indication/reason for exam; i.e. extremities or head) *Use of iterative reconstruction technique DLP: 760 mGy-cm FINDINGS: LUNG BASES: The visualized lung bases are unremarkable. LIVER, GALLBLADDER, AND BILIARY TREE: Liver normal in size, contour and morphology. Mild diffuse hepatic steatosis. No focal liver lesions. No intra or extrahepatic biliary dilatation. Physiologic contraction of the gallbladder. PANCREAS: Unremarkable. SPLEEN: Unremarkable. ADRENAL GLANDS: Unremarkable. KIDNEYS AND URETERS: The kidneys are normal in size, shape, and attenuation. No hydronephrosis, hydroureter, or calculi seen. No perinephric stranding. BLADDER: Unremarkable. GASTROINTESTINAL TRACT: The small and large bowel are unremarkable. The appendix is unremarkable. ABDOMINAL WALL: No significant hernia is appreciated. LYMPH NODES: Normal. VASCULAR: Unremarkable. PELVIC VISCERA: Unremarkable. OSSEOUS STRUCTURES: Unremarkable. CT/CT abdomen pelvis wo con IMPRESSION: No acute findings within the abdomen or pelvis. No urinary calculi or hydronephrosis. No potential etiology for the patient's left flank pain is identified. Mild hepatic steatosis.
[2021-07-01 03:51] VITALS: BP 123/76; PULSE 76; RESP 16; TEMP 36.9; O2SAT 96; BMI 37.3
[2021-07-01 04:00] VITALS: BP 124/71; PULSE 68; RESP 16; O2SAT 98
[2021-07-01 04:01] LABS: Appearance Urine CLOUDY; Color Urine YELLOW; Glucose Urine UA NEG (NEG); Leukocyte Esterase Urine NEG (NEG); Nitrite Urine NEG (NEG); Specific Gravity - Urine 1.025 (1.005-1.025); UACC Culture Trigger NO; Urine Blood 3+ (NEG); Urine Ketones NEG (NEG); Urine Protein NEG (NEG-TRACE)
--- NOTE | 2021-07-01 04:05 | ED.GENADULT ---
HPI - General Adult General Chief complaint: Back Pain/Injury Stated complaint: lower back pain Time Seen by Provider: 07/01/21 02:46 Source: patient Mode of arrival: EMS History of Present Illness HPI narrative: 26-year-old male without significant past medical history presents via EMS with complaints flank pain that started earlier in the evening and was sharp in nature with radiation to the anterior abdomen and associated with nausea, diaphoresis. Patient states he has never felt like this before in his life and noted that he had blood in his urine. Currently though patient is asymptomatic. Related Data Home Medications Medication Instructions Recorded Confirmed lamotrigine 250 mg tablet,extended 1 tab PO DAILY 05/30/21 05/30/21 release 24 hr lisdexamfetamine 60 mg capsule 60 mg DAILY 05/30/21 05/30/21 (Vyvanse) Allergies Allergy/AdvReac Type Severity Reaction Status Date / Time Penicillins Allergy Rash Verified 05/29/21 17:21 Review of Systems Review of Systems: Pertinent positives and negatives as stated in HPI 10 point review of systems is otherwise negative. [facility] Past Medical History Source: nursing notes reviewed Medical History Dizziness Excessive sleepiness Syncope Social History Social History Advance Directives: No service: No Current occupational status: employed Physical Exam ED Vital Signs: Vital Signs - 24 hr 07/01/21 03:51 Temperature 98.5 F Pulse Rate 76 Respiratory Rate 16 Blood Pressure 123/76 Pulse Oximetry 96 BMI result Body Mass Index 37.3 VITAL SIGNS: Reviewed. GENERAL: Well developed, well nourished, in no acute distress. HEAD: Normocephalic/atraumatic EYES: PERRLA, EOMI EARS: Ext canals without abnormality OROPHARYNX: no oral lesions noted, posterior pharynx clear LUNGS: Normal breath sounds. No adventitious sounds or accessory muscle use. SpO2<96> CARDIOVASCULAR: Regular rate and rhythm without noted murmurs ABDOMEN: Soft, non-tender, non-distended with bowel sounds, no CVA tenderness MUSCULOSKELETAL: No tenderness, deformities, or effusions noted on gross inspection. EXTREMITIES: No cyanosis, clubbing or edema. SKIN: Inspection of the skin reveals no rashes NEUROLOGIC: Alert and oriented x 4. Strength and sensation to light touch were grossly intact x 4. Course Course Course Narrative: 26-year-old male with history and clinical presentation consistent with renal colic and ureterolithiasis. Patient is currently asymptomatic and observed the stone in the urine sample. He will receive combination analgesics as well as antinausea medication. Review of all investigations demonstrates passage of the stone and otherwise no acute findings and patient reports that he is feeling much better at this time. All results and findings discussed with the patient at bedside. He is otherwise discharged home in stable condition. Medical Decision Making Lab Data Labs: Lab Results 07/01/21 Range/Units 03:56 Urine Color YELLOW Urine Appearance CLOUDY Urine pH 6.0 (5.0-8.0) Ur Specific [place] 1.025 (1.005-1.025) Urine Protein NEG (NEG-TRACE) MG/DL Urine Glucose (UA) NEG (NEG) MG/DL Urine Ketones NEG (NEG) MG/DL Urine Blood 3+ H (NEG) Urine Nitrite NEG (NEG) Ur Leukocyte Esterase NEG (NEG) Urine RBC 50-75 H (0) /HPF Urine WBC 0-2 (0-4) /HPF Ur Squamous Epith Cells TRACE /LPF Urine Bacteria 1+ /LPF Urine Mucus 1+ /LPF Discharge Plan Discharge Clinical Impression: Renal colic, Ureterolithiasis Patient Disposition: Home, Self-Care Instructions: Renal Colic (ED), Low Oxalate Diet (ED), Ureteral Stones (ED) Additional Instructions: 1. Increase fluid hydration, especially with water. You have passed the stone. 2. Follow-up with your primary care provider for re-evaluation further outpatient management. Return to the ER for worsening symptoms. Prescriptions: No Action Vyvanse 60 mg Capsule 60 mg DAILY 0RF lamotrigine 250 mg tablet extended release 24hr 1 tab PO DAILY 0RF
[2021-07-01 04:07] LABS: Bacteria Urine 1+ /LPF; Mucus Urine 1+ /LPF; RBC Urine 50-75 /HPF (0); Squamous Epithelial Cell Urine TRACE /LPF; WBC Urine 0-2 /HPF (0-4)
--- NOTE | 2021-07-01 04:52 | PC.NURSE ---
pt in rad steady giat, denies nausea
[2021-07-01] MEDS: Acetaminophen 325 MG TABLET 975 MG PO (05:47)
[2021-07-01] MEDS: Ketorolac Tromethamine 15 MG/ML VIAL IM (05:50)
== END 2021-07-01 05:52 | disposition home or self-care (01) ==
PROVIDERS: Emergency Provider Student in an Organized Health Care Education/Training Program; PCP Internal Medicine
DX: N23 Unspecified renal colic (principal); N20.1 Calculus of ureter; M54.50 Low back pain, unspecified; Z79.899 Other long term (current) drug therapy
CPT/HCPCS: 74176; 81001; 81003; 96372; 99284; J1885

== ENCOUNTER 2022-05-08 12:30 | Outpatient (RCR) | payer OTHER, SELFPAY ==
[2022-04-12 12:02] VITALS: BP 138/88; PULSE 72; TEMP 37.1
[2022-04-12 12:05] VITALS: BMI 41.1
--- NOTE | 2022-04-12 13:03 | PC.ADMIT ---
Patient is a 27 year old single male who was referred to [facility] by his therapist. Patient reports increased depression and severe anxiety. Has been isolating in his room and spending a lot of time in bed. Passive SI no plan or intent. 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 Patient is alert and oriented x4. Calm and cooperative. Presents with depressed mood and affect. Reports passive suicidal thinking, denied plan or intent to kill himself. Identified his cat Gaudencio as his protective factor. Plans on spending time with his aunt this weekend who is supportive and is going to try and call his friend however he stated his friend is often busy. Patient given written and verbal medication education on new medication Lamictal. Medication reconciled with patient and patient's pharmacy. He stated his provider increased his Risperdal to 1 mg BID. Patient reports taking medications as prescribed.
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
[2022-04-15 15:25] LABS: Amphetamine Screen Urine Not Detected (Not Detect); Barbiturates, Urine Not Detected (Not Detect); Benzodiazepines Screen Urine Not Detected (Not Detect); Cannabinoid Screen Urine POSITIVE (Not Detect); Cocaine Screen Urine Not Detected (Not Detect); Fentanyl, urine Not Detected (Not Detect); Opiate Screen Urine Not Detected (Not Detect); Phencyclidine Screen Urine Not Detected (Not Detect)
--- NOTE | 2022-04-16 11:36 | HO.PHPPROGNO ---
Subjective Subjective Date of Service: 04/16/22 Reason For Visit: depression,anxiety Medical Problems Affecting Mental Status: No Interim History: Reports increased anxiety, difficulty functioning. States ?I can not control my emotions ?. Tearful during encounter. Denies SI, states that he feels safe. States ?I was hitting myself over the weekend ?. Reports this was as a way to comfort himself, no injuries as a result. States that he has been experiencing extreme back to back anxiety attacks, asking for risperidone dose increase. Continues with severe depression. Struggles with ADLs / IADL's. Medication Compliance: Yes Side effects from medications: No Attending Groups: Yes Review of Systems Acute medical concerns: No Medical Review of Systems: unchanged Review of Systems Review of Systems Yes all other systems are reviewed and are negative Constitutional: Reports no additional constitutional complaints Mental Status Exam Mental Status Exam Narrative: Tearful during encounter. Denies SI either active or passive. Denies AH/VH. Patient Appearance: Appropriate Patient Orientation: Person, Place, Time and Situation Level of Consciousness: Appropriate Patient Behavior: Appropriate, Cooperative, Anxious and Crying Mood Description: Depressed and Anxious Affect Description: Depressed and Anxious Patient Cognition Impaired: No Ability to Follow Directions: Good Speech Pattern: Clear Memory Description: Intact Hallucinations: None Delusions: Not Present Thought Process: Intact Thought Content: positive for Intact Depressive Symptoms: Increased Anxiety, Diff. Making Decisions, Crying Spells, Sleeping More Than Usual, Loss of Int. in Activity, Feelings of Worthlessness, Hopelessness, Isolating-Friends/Family, Feelings of Guilt, Unhappiness, Increased Fatigue, Low Self Esteem, Loss of Energy and Difficulty Concentrating Abnormal Motor Activity Signs and Symptoms: Psychomotor Retardation Judgement: Fair Diagnostics Vital Signs (24Hr): BMI result Body Mass Index 41.1 Labs Labs: Laboratory Results - last 48 hr 04/15/22 13:06 Urine Opiates Screen Not Detected Urine Fentanyl Screen Not Detected Ur Barbiturates Screen Not Detected Ur Phencyclidine Scrn Not Detected Ur Amphetamines Screen Not Detected U Benzodiazepines Scrn Not Detected Urine Cocaine Screen Not Detected U Marijuana (THC) Screen POSITIVE H Assessment & Plan Assessment & Plan (1) Bipolar II disorder, severe, depressed, with anxious distress: Status: Acute Code(s): F31.81 - Bipolar II disorder Assessment and Plan: Patient continues with severe to depression symptoms, increased anxiety. Engaged in SIB over weekend. Grandfather several days ago, experiencing grief. Denies SI, states that he feels safe. Discussed possibility of crisis evaluation, inpatient stay. He states that he feels safe, and that he would prefer to stay in this program with daily participation. Also reports that if his symptoms worsen, he is willing to go to our ED for crisis evaluation with possible inpatient hospitalization if needed. Taking medications as prescribed, no side effects. Requests increase in risperidone, as he does find it helpful and has taken a higher dose in the past. Plan 1. Continue with current [facility] plan of care. 2. Increase risperidone to 1 mg in a.m., 2mg at bedtime. 3. Provider note provided for his place of employment. 4. Follow-up as per protocol. Patient educated on: diagnosis, medication risk/benefits and therapeutic strategies Informed Consent: understands Reason for contiued partial hosp. stay Substantial Risk for: harm to self, inability to function, rapid decompensation and med/psych decompensation Certification I certify that partial hospital treatment is medically necessary due to the symptoms and problems resulting from the patient's mental illness and the failure to treat the patient at the partial hospital level of care would likely result in the patient requiring inpatient psychiatric care which could not be prevented at a less intensive level of care. Total time managing care of this patient today 20____ minutes. Discharge Plan Discharge Attending provider: Enrico Mcpherson Medications: New lamotrigine 25 mg tablet 25 mg PO DAILY 14 Days Qty: 14 0RF risperidone 1 mg tablet See Rx Instructions .ROUTE .COMPLEX 7 Days Qty: 21 0RF Rx Instructions: Take one tab in am, and 2 tabs at bedtime, for daily scheduled dose of 3mg Discontinued risperidone [Risperdal] 1 mg Tablet 1 mg PO BID Label Comments: Patient stated his prescriber increased to BID. No Action trazodone 100 mg tablet 0.5 - 1 tab PO BEDTIME Stand Alone Forms: Patient Portal Discharge page Patient Education: Lamotrigine (By mouth)
--- NOTE | 2022-04-18 15:08 | HO.PHP ---
The clients case was reviewed and opened in the clinical treatment team
--- NOTE | 2022-04-24 13:45 | HO.PHPIOP ---
The client called out sick
--- NOTE | 2022-04-30 09:37 | HO.PHPPROGNO ---
Subjective Subjective Date of Service: 04/30/22 Medical Problems Affecting Mental Status: No Interim History: Describes mood as ?I have been better ?. Reports stated that all weekend due to increased depressed mood. Less anxious. Taking medications as prescribed, tolerating well. Flat affect. Reports that he sometimes reverts to feeling ?super depressed?, and then feels better at other times, fluctuates. Continues with some passive SI, not daily. Would like to start Vyvanse. Review of Systems Review of Systems Yes all other systems are reviewed and are negative Constitutional: Reports no additional constitutional complaints Mental Status Exam Mental Status Exam Narrative: Denies SI either active or passive. Denies AH/VH. Patient Appearance: Appropriate Patient Orientation: Person, Place, Time and Situation Level of Consciousness: Appropriate Patient Behavior: Appropriate, Cooperative and Good Eye Contact Mood Description: Depressed Affect Description: Depressed, Blunted and Flat Patient Cognition Impaired: No Ability to Follow Directions: Good Speech Pattern: Clear Memory Description: Intact Hallucinations: None Delusions: Not Present Thought Process: Intact Thought Content: positive for Intact Depressive Symptoms: Sleeping More Than Usual, Loss of Int. in Activity, Feelings of Worthlessness, Hopelessness, Isolating-Friends/Family, Unhappiness, Increased Fatigue, Low Self Esteem, Loss of Energy and Difficulty Concentrating Judgement: Fair Diagnostics Vital Signs (24Hr): BMI result Body Mass Index 41.1 Assessment & Plan Assessment & Plan (1) Bipolar II disorder, severe, depressed, with anxious distress: Status: Acute Code(s): F31.81 - Bipolar II disorder Assessment and Plan: Patient continues with depressed mood, affect flat/blunted. Tolerating medications well. Less anxious. No SI, no safety concerns. Has upcoming appointments with psychiatrist on , therapist on Friday. Reports bouts of depression, alternating between feeling ?super depressed?, and then ?okay ?. Would like to start Vyvanse. However, discussed that tomorrow may be last day in program, and that he has upcoming appointment on with his psychiatric provider. Discussed he bring this up with provider, as they will be able to continue working with him. He stated that he would do this. He is finding program helpful. Plan 1. Continue with current [facility] plan of care. 2. Continue with medications as currently prescribed. 3. Follow-up as per protocol. Patient educated on: diagnosis, medication risk/benefits and therapeutic strategies Informed Consent: understands Reason for contiued partial hosp. stay Substantial Risk for: inability to function and rapid decompensation Certification I certify that partial hospital treatment is medically necessary due to the symptoms and problems resulting from the patient's mental illness and the failure to treat the patient at the partial hospital level of care would likely result in the patient requiring inpatient psychiatric care which could not be prevented at a less intensive level of care. Total time managing care of this patient today __20__ minutes.
--- NOTE | 2022-05-01 13:45 | HO.PHP ---
Staff sat with Gennaro to request CSP services from [facility]. His worker will be Leanne and she will be contacting him. He number is [phone]
--- NOTE | 2022-05-08 13:21 | HO.PHP ---
I called Gennaro to check on his plan for this evening and to give him the number for crisis. He states that he does feel sad with some hopelessness and has fleeting suicidal ideation without any plan or intent. We discussed calling crisis for support if needed and I will put him on alert. He states that he will look up the [employer] website and is going to take a nap.
--- NOTE | 2022-05-08 13:37 | HO.PHP ---
I called crisis and put day on alert. I spoke with Kate @ [facility] and he will be on alert for 7 days.
== END 2022-05-08 23:59 | disposition home or self-care (01) ==
LOC: HO.PHPA 12:30
PROVIDERS: Visit Provider Psychiatry & Neurology Psychiatry
DX: F31.81 Bipolar II disorder (principal); Z79.899 Other long term (current) drug therapy
CPT/HCPCS: 80307; 90791; 90853

== ENCOUNTER 2022-05-20 14:04 | Inpatient (IN) | payer OTHER, SELFPAY ==
--- NOTE | 2022-05-20 | ECG_ITS ---
Test Reason : MED CLEARANCE Blood Pressure : / mmHG Vent. Rate : 063 BPM Atrial Rate : 063 BPM P-R Int : 136 ms QRS Dur : 096 ms QT Int : 414 ms P-R-T Axes : 030 058 044 degrees QTc Int : 423 ms Normal sinus rhythm Normal ECG When compared with ECG of 29-MAY-2021 21:05, No significant change was found Referred By: Lyly Jones Electronically Signed By:LULA WYNNE
[2022-05-20 14:30] VITALS: BP 138/88; PULSE 89; RESP 20; TEMP 36.6; O2SAT 95; BMI 36.6
--- NOTE | 2022-05-20 14:52 | ED.PSYCH ---
HPI - Psych General Chief Complaint: Psychiatric Symptoms Stated Complaint: Crisis/SI Time Seen by Provider: 05/20/22 14:32 Source: family Mode of arrival: EMS Limitations: no limitations History of Present Illness HPI Narrative: Patient with a long history of suicidal ideation, sister found rope and knives. Increased stress at work and works at the [employer]. He lives at home, sister works in the ED is concerned about his safety. there were pill bottles all over unclear if he is taking his medications. patient states clearly that he thinks of hanging himself. complaint: suicidal ideation Onset (ago): month(s) Duration: constant Exacerbating factors: none If self harm: admits thoughts of self harm Related Data Home Medications Medication Instructions Recorded Confirmed trazodone 100 mg tablet 0.5 - 1 tab PO BEDTIME 04/12/22 04/12/22 Previous Rx's Medication Instructions Recorded lamotrigine 25 mg tablet 25 mg PO DAILY 14 days #14 tabs 04/12/22 risperidone 1 mg tablet See Rx Instructions .Route 04/16/22 .COMPLEX 7 days #21 tabs Allergies Allergy/AdvReac Type Severity Reaction Status Date / Time Penicillins Allergy Rash Verified 05/20/22 14:59 citalopram [From Celexa] AdvReac suicidal Verified 05/20/22 14:59 thoughts Review of Systems Review of Systems: Yes all other systems are reviewed and are negative Neurologic: Denies Sensory deficit (Neuro) Psychiatric: Psychiatric: Reports anxiety and Reports homicidal ideation [facility] Past Medical History Medical History Dizziness Excessive sleepiness History of kidney stones Syncope Social History Social History Household Members: Other Household Members Other:: Cat Gaudencio Patient Tobacco Use Status: Current everyday Tobacco user Tobacco use type: Cigarette Cigarettes Per Day: 12 Years Smoked: 7 Advance Directives: No Advance Directives Information Provided: No service: No Current occupational status: employed Physical Exam Vital Signs: Vital Signs: Last Vital Signs Temp 97.9 F 05/20/22 14:30 Pulse 89 05/20/22 14:30 Resp 20 05/20/22 14:30 BP 138/88 05/20/22 14:30 Pulse Ox 95 05/20/22 14:30 O2 Del Method 05/20/22 14:30 BMI result Body Mass Index 36.6 Const: General: healthy appearing Nutritional Appearance: obese Orientation/consciousness: oriented to person and patient oriented x3 Limitations: no limitations HEENT: Head: Yes normal to inspection Ears: external ears normal General nose exam: Normal external nose present Mouth: Normal oral and palatal mucosa present and oropharynx normal Throat: Yes posterior oropharynx normal Eyes: General: appearance normal, both eyes and all related structures Neck: Other: supple Neck: Yes normal visual inspection Chest: Chest palpation & inspection: normal inspection of the chest Resp: Auscultation: clear to auscultation bilaterally Cardio: Jugular venous distension: no JVD Rate: regular rate Rhythm: regular rhythm Heart sounds: S1 normal heart sound present and S2 normal heart sound present GI: Inspection: Yes normal to inspection Palpation (GI): Soft to palpation, nontender and No hepatosplenomegaly present Auscultation: normal bowel sounds : General: Yes no CVA tenderness Back/Spine/Pelvis: Back: no CVA tenderness Skin: General skin exam: no rashes or lesions noted Neuro: General: oriented to person and patient oriented x3 Cranial nerves: Yes CN's II-XII intact bilaterally Motor exam (neuro): 5/5 motor strength present throughout Sensory Exam: No Sensory deficit (Neuro) Extrem: General: Yes normal to inspection Psych: Other: flat affect Course Reevaluation(s) Reevaluation #1: patient needs to be admitted for suicidal ideation Time: 18:53 Medications Administered Discontinued Medications Generic Name Dose Route Start Last Admin Trade Name Freq PRN Reason Stop Dose Admin Nicotine 14 mg 05/20/22 15:03 05/20/22 16:18 Nicotine 14 Mg Patch.Td24 TRANSDERMA 05/20/22 15:04 Not Given ONCE ONE Medical Decision Making Differential Diagnosis Differential Diagnoses: The differential diagnosis associated with the presentation includes (major depression, suicidal ideation) Admission/Observation Consideration of admission/observation: Escalation of care including admission/observation considered (admission was considered upon patients arrival) Consult Healthcare Provider Management of the patient was discussed with: Behavioral Health Provider Lab Data MDM Lab Attestation statement: I reviewed the patient's lab results. 05/20/22 16:32 05/20/22 16:32 Labs: Lab Results 02/20/23 02/20/23 02/20/23 Range/Units 15:11 15:18 16:32 WBC 9.5 (4.8-10.8) X10*3/uL RBC 4.98 (4.60-5.80) X10*6/uL Hgb 14.6 (14.0-18.0) g/dl Hct 41.9 L (42.0-52.0) % MCV 84.1 (80.0-98.0) fL MCH 29.3 (27.0-33.0) pg MCHC 34.8 (31.0-36.0) g/dl RDW 12.7 (11.0-16.0) % Plt Count 236 (160-400) X10*3/uL MPV 9.5 (9.4-12.4) fL Immature Gran % (Auto) 0.5 H (0.0-0.4) % Neut % (Auto) 66.9 (45-73) % Lymph % (Auto) 23.4 (20-40) % [place] % (Auto) 8.2 (2-11) % Eos % (Auto) 0.7 (0-4) % Baso % (Auto) 0.3 (0-2) % Lymph # (Auto) 2.2 (1.2-4.9) X10*3/uL [place] # (Auto) 0.8 (0.1-1.2) X10*3/uL Eos # (Auto) 0.1 (0.0-0.4) X10*3/uL Baso # (Auto) 0.0 (0.0-0.2) X10*3/uL Abs Immat Gran (auto) 0.05 H (0.00-0.03) X10*3/uL Absolute Neuts (auto) 6.3 (2.0-8.3) x10*3/uL Absolute Nucleated RBC 0.000 (0.0-0.012) X10*3/uL Nucleated RBC % (auto) 0.0 (0.0-0.2) /100WBC Sodium (135-145) mmol/L Potassium (3.3-5.1) mmol/L Chloride (96-108) mmol/L Carbon Dioxide (22-29) mmol/L Anion Gap (12-20) BUN (9-16) mg/dL Creatinine (0.5-1.4) mg/dL Estim Creat Clear Calc Estimated GFR Random Glucose (60-115) mg/dL Calcium (8.4-10.2) mg/dL Salicylates (15-30) mg/dL Urine Opiates Screen Not Detected (Not Detect) Urine Fentanyl Screen Not Detected (Not Detect) Acetaminophen (<30) mcg/mL Ur Barbiturates Screen Not Detected (Not Detect) Ur Phencyclidine Scrn Not Detected (Not Detect) Ur Amphetamines Screen Not Detected (Not Detect) U Benzodiazepines Scrn Not Detected (Not Detect) Urine Cocaine Screen Not Detected (Not Detect) U Marijuana (THC) Screen POSITIVE H (Not Detect) Ethyl Alcohol mg/dL COVID-19 (JIN) Negative (Negative) COVID-19 Clin Com See Note 05/20/22 Range/Units 16:32 WBC (4.8-10.8) X10*3/uL RBC (4.60-5.80) X10*6/uL Hgb (14.0-18.0) g/dl Hct (42.0-52.0) % MCV (80.0-98.0) fL MCH (27.0-33.0) pg MCHC (31.0-36.0) g/dl RDW (11.0-16.0) % Plt Count (160-400) X10*3/uL MPV (9.4-12.4) fL Immature Gran % (Auto) (0.0-0.4) % Neut % (Auto) (45-73) % Lymph % (Auto) (20-40) % [place] % (Auto) (2-11) % Eos % (Auto) (0-4) % Baso % (Auto) (0-2) % Lymph # (Auto) (1.2-4.9) X10*3/uL [place] # (Auto) (0.1-1.2) X10*3/uL Eos # (Auto) (0.0-0.4) X10*3/uL Baso # (Auto) (0.0-0.2) X10*3/uL Abs Immat Gran (auto) (0.00-0.03) X10*3/uL Absolute Neuts (auto) (2.0-8.3) x10*3/uL Absolute Nucleated RBC (0.0-0.012) X10*3/uL Nucleated RBC % (auto) (0.0-0.2) /100WBC Sodium 141 (135-145) mmol/L Potassium 4.5 (3.3-5.1) mmol/L Chloride 107 (96-108) mmol/L Carbon Dioxide 26 (22-29) mmol/L Anion Gap 13 (12-20) BUN 15 (9-16) mg/dL Creatinine 1.00 (0.5-1.4) mg/dL Estim Creat Clear Calc 118.4 Estimated GFR > 60 Random Glucose 94 (60-115) mg/dL Calcium 9.9 (8.4-10.2) mg/dL Salicylates < 5.0 L (15-30) mg/dL Urine Opiates Screen (Not Detect) Urine Fentanyl Screen (Not Detect) Acetaminophen < 17 (<30) mcg/mL Ur Barbiturates Screen (Not Detect) Ur Phencyclidine Scrn (Not Detect) Ur Amphetamines Screen (Not Detect) U Benzodiazepines Scrn (Not Detect) Urine Cocaine Screen (Not Detect) U Marijuana (THC) Screen (Not Detect) Ethyl Alcohol < 10 mg/dL COVID-19 (JIN) (Negative) COVID-19 Clin Com Social Determinants stressful work relationships Discharge Plan Discharge Clinical Impression: Bipolar II disorder, severe, depressed, with anxious distress, Depression Patient Disposition: Still a Patient Prescriptions: No Action trazodone 100 mg tablet 0.5 - 1 tab PO BEDTIME lamotrigine 25 mg tablet 25 mg PO DAILY 14 Days Qty: 14 0RF risperidone 1 mg tablet See Rx Instructions .ROUTE .COMPLEX 7 Days Qty: 21 0RF Rx Instructions: Take one tab in am, and 2 tabs at bedtime, for daily scheduled dose of 3mg Interventions: [place]-Suicide Risk Severity Scale Last Done: 05/20/22 14:58
--- NOTE | 2022-05-20 15:00 | PC.NURSE ---
pt brought to ed by sister who reports that he called her and told her that he bought a rope to kill himself. pt has history of depression and making suicidal statements in the past. she reports that this is the worst she has seen her brother. pt reports that he is constantly being teased at work because he is loco. he says that he can't take it anymore and does not want to go back to work there. pt denies SI/HI, denies auditory/visual hallucinations. will continue to monitor.
[2022-05-20 15:35] LABS: Amphetamine Screen Urine Not Detected (Not Detect); Barbiturates, Urine Not Detected (Not Detect); Benzodiazepines Screen Urine Not Detected (Not Detect); Cannabinoid Screen Urine POSITIVE (Not Detect); Cocaine Screen Urine Not Detected (Not Detect); Fentanyl, urine Not Detected (Not Detect); Opiate Screen Urine Not Detected (Not Detect); Phencyclidine Screen Urine Not Detected (Not Detect)
[2022-05-20 15:39] LABS: COVID-19 Test Negative (Negative); IDNOW Serial# 6674DD1D
[2022-05-20 16:37] LABS: MANUAL DIFF FLAG NO
[2022-05-20 16:39] LABS: Basophils Percent Auto 0.3 % (0-2); Eosinophils Absolute Auto 0.1 X10*3/uL (0.0-0.4); Eosinophils Percent Auto 0.7 % (0-4); Hematocrit 41.9 % (42.0-52.0); Hemoglobin 14.6 g/dl (14.0-18.0); Imm Gran Abs Auto 0.05 X10*3/uL (0.00-0.03); Imm Gran Pct Auto 0.5 % (0.0-0.4); Lymphocytes Absolute Auto 2.2 X10*3/uL (1.2-4.9); Lymphocytes Percent Auto 23.4 % (20-40); Mean Corpuscular HGB Conc 34.8 g/dl (31.0-36.0); Mean Corpuscular Hemoglobin 29.3 pg (27.0-33.0); Mean Corpuscular Volume 84.1 fL (80.0-98.0); Mean Platelet Volume 9.5 fL (9.4-12.4); Monocytes Absolute Auto 0.8 X10*3/uL (0.1-1.2); Monocytes Percent Auto 8.2 % (2-11); Neutrophils Absolute Auto 6.3 x10*3/uL (2.0-8.3); Neutrophils Percent Auto 66.9 % (45-73); Platelet Count 236 X10*3/uL (160-400); Red Blood Count 4.98 X10*6/uL (4.60-5.80); Red Cell Distribution Width 12.7 % (11.0-16.0); White Blood Count 9.5 X10*3/uL (4.8-10.8)
[2022-05-20 17:02] LABS: Acetaminophen LAB < 17 mcg/mL (<30); Anion Gap 13 (12-20); Blood Urea Nitrogen 15 mg/dL (9-16); Calcium 9.9 mg/dL (8.4-10.2); Carbon Dioxide 26 mmol/L (22-29); Chloride 107 mmol/L (96-108); Creatinine Clr Calc Pharmacy 118.4; Estimated Glomerular Filt Rate > 60; Ethanol < 10 mg/dL; Glucose Random 94 mg/dL (60-115); Potassium 4.5 mmol/L (3.3-5.1); Salicylate < 5.0 mg/dL (15-30); Sodium 141 mmol/L (135-145)
[2022-05-21] MEDS: risperiDONE 2 MG TABLET PO ×2 (00:31→20:44)
[2022-05-21 02:00] VITALS: BP 153/94; PULSE 71; RESP 16; TEMP 37.1; O2SAT 99
[2022-05-21 08:00] VITALS: BP 107/68; PULSE 76; RESP 16; TEMP 36.4; O2SAT 97
[2022-05-21] MEDS: risperiDONE 1 MG TABLET PO (08:26)
[2022-05-21 09:24] LABS: Alanine Aminotransferase 56 U/L (0-40); Albumin Level 4.2 g/dL (3.5-5.0); Alkaline Phosphatase 56 U/L (39-117); Anion Gap 12 (12-20); Aspartate Amino Transferase 27 U/L (5-37); Bilirubin Total 0.6 mg/dL (0.0-1.0); Blood Urea Nitrogen 15 mg/dL (9-16); Calcium 9.6 mg/dL (8.4-10.2); Carbon Dioxide 27 mmol/L (22-29); Chloride 107 mmol/L (96-108); Cholesterol 219 mg/dL; Creatinine Clr Calc Pharmacy 106.6; Estimated Glomerular Filt Rate > 60; Glucose Fasting 93 mg/dL (60-99); HDL Cholesterol 38 mg/dL; LDL Cholesterol Calculated 157 mg/dl; Potassium 4.3 mmol/L (3.3-5.1); Sodium 142 mmol/L (135-145); Total Protein 6.2 g/dL (6.5-8.0); Triglycerides 124 mg/dL
[2022-05-21 09:55] LABS: Folate 8.6 ng/mL (> or = 4.0); Thyroid Stimulating Hormone 2.59 uIU/mL (0.32-4.0); Vitamin B12 569 pg/mL (200-900)
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
[2022-05-21] MEDS: hydrOXYzine HCL 25 MG TABLET PO ×2 (14:16→20:44)
[2022-05-21] MEDS: Nicotine 21 MG PATCH.TD24 TRANSDERMA (14:17)
[2022-05-21 17:52] VITALS: BP 168/88; PULSE 69; RESP 16; TEMP 36.3; O2SAT 97
--- NOTE | 2022-05-21 20:16 | PC.NURSE ---
Pt submitted a Three Day Notice on Friday05/21/2022 up on Friday05/24/2022.
[2022-05-21] MEDS: traZODone HCL 100 MG TABLET PO (20:44)
[2022-05-21] MEDS: Lurasidone HCl 20 MG TABLET PO (20:44)
[2022-05-22 08:50] VITALS: BP 113/74; PULSE 113; RESP 18; TEMP 36.8; O2SAT 99
[2022-05-22] MEDS: risperiDONE 1 MG TABLET PO (08:50)
[2022-05-22] MEDS: Lurasidone HCl 20 MG TABLET PO ×2 (08:50→23:20)
[2022-05-22] MEDS: Nicotine 21 MG PATCH.TD24 TRANSDERMA (08:53)
[2022-05-22] MEDS: Acetaminophen 325 MG TABLET 650 MG PO (09:05)
[2022-05-22] MEDS: hydrOXYzine HCL 25 MG TABLET PO (13:05)
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
[2022-05-22] MEDS: OLANZapine 2.5 MG TABLET PO (17:11)
[2022-05-22 18:00] VITALS: BP 145/90; PULSE 88; TEMP 36
[2022-05-22] MEDS: traZODone HCL 100 MG TABLET PO (23:19)
[2022-05-22] MEDS: risperiDONE 2 MG TABLET PO (23:20)
[2022-05-22] MEDS: lamoTRIgine 25 MG TABLET PO (23:20)
[2022-05-23 08:26] VITALS: BP 107/57; PULSE 62; RESP 16; TEMP 36.8; O2SAT 95
[2022-05-23] MEDS: Lurasidone HCl 20 MG TABLET PO ×2 (08:36→20:40)
[2022-05-23] MEDS: buPROPion HCl XL 150 MG TAB.ER.24H PO (08:36)
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
[2022-05-23] MEDS: OLANZapine 2.5 MG TABLET PO (15:48)
[2022-05-23 20:30] VITALS: BP 142/87; PULSE 96; TEMP 36.9
[2022-05-23] MEDS: Acetaminophen 325 MG TABLET 650 MG PO (20:41)
[2022-05-23] MEDS: risperiDONE 2 MG TABLET PO (20:42)
[2022-05-23] MEDS: lamoTRIgine 25 MG TABLET PO (20:43)
[2022-05-23] MEDS: traZODone HCL 100 MG TABLET PO (20:43)
[2022-05-24 06:00] VITALS: BP 130/73; PULSE 88; RESP 18; TEMP 36; O2SAT 98
[2022-05-24] MEDS: Lurasidone HCl 20 MG TABLET PO (08:39)
[2022-05-24] MEDS: buPROPion HCl XL 150 MG TAB.ER.24H PO (08:39)
== END 2022-05-24 11:17 | disposition home or self-care (01) | DRG 753 ==
LOC: HO.ED 18:54 → HO.PM5 23:16
PROVIDERS: Admitting Provider Social Worker; Emergency Provider Emergency Medicine; PCP Internal Medicine; Visit Provider Psychiatry & Neurology Psychiatry
DX: F31.81 Bipolar II disorder (principal); R45.851 Suicidal ideations; F17.210 Nicotine dependence, cigarettes, uncomplicated; F41.9 Anxiety disorder, unspecified; F43.10 Post-traumatic stress disorder, unspecified; Z71.6 Tobacco abuse counseling; Z88.0 Allergy status to penicillin; Z88.8 Allergy status to other drugs, medicaments and biological substances; Z79.899 Other long term (current) drug therapy
CPT/HCPCS: 36415; 80048; 80053; 80061; 80143; 80179; 80307; 82077; 82607; 82746; 84443; 85025; 87635; 93005; 99285; S9485

== ENCOUNTER 2022-06-24 08:36 | Emergency (ER) | payer OTHER, SELFPAY ==
[2022-06-24 08:40] VITALS: BP 151/95; PULSE 110; RESP 20; TEMP 37; O2SAT 96; BMI 39.7
--- NOTE | 2022-06-24 08:43 | ECG_ITS ---
Test Reason : medical clearance Blood Pressure : / mmHG Vent. Rate : 094 BPM Atrial Rate : 094 BPM P-R Int : 142 ms QRS Dur : 088 ms QT Int : 320 ms P-R-T Axes : 034 041 027 degrees QTc Int : 400 ms Normal sinus rhythm Nonspecific T wave abnormality Abnormal ECG When compared with ECG of 20-MAY-2022 23:08, Vent. rate has increased BY 31 BPM NSTT present Referred By: Generic ED Physician Electronically Signed By:LULA WYNNE
--- NOTE | 2022-06-24 09:01 | ED.GENADULT ---
HPI - General Adult General Chief complaint: General Medical Stated complaint: medical clearence Time Seen by Provider: 06/24/22 09:00 Source: patient Mode of arrival: ambulatory History of Present Illness HPI narrative: 27-year-old male with underlying history of depression and comes in with his family member for evaluation as he does have except unsteady [facility] facility that he feels would help him successfully navigate medication adjustments. He currently denies any SI/HI and denies any constitutional symptoms such as fever, chills, shortness of breath/chest pain/palpitations and denies any GI or symptoms. Related Data Home Medications Medication Instructions Recorded Confirmed trazodone 100 mg tablet 1 tab PO BEDTIME 05/20/22 05/20/22 Previous Rx's Medication Instructions Recorded bupropion HCl 150 mg 24 hr tablet, 150 mg PO DAILY 30 days #30 tabs 05/23/22 extended release hydroxyzine HCl 25 mg tablet 25 mg PO BID PRN Anxiety 30 days 05/23/22 #60 tabs lamotrigine 25 mg tablet 25 mg PO BEDTIME 30 days #30 tabs 05/23/22 nicotine (polacrilex) 2 mg gum 4 mg buccal Q2H PRN nicotine 05/23/22 cravings 30 days #120 ea nicotine 21 mg/24 hr daily 21 mg transdermal DAILY PRN 05/23/22 transdermal patch smoking cessation 28 days #28 ea olanzapine 2.5 mg tablet 2.5 mg PO Q4H PRN severe anxiety 05/23/22 30 days #60 tabs lurasidone 20 mg tablet (Latuda) 20 mg PO BID 30 days #60 tabs 05/27/22 Allergies Allergy/AdvReac Type Severity Reaction Status Date / Time Penicillins Allergy Rash Verified 05/20/22 14:59 citalopram [From Celexa] AdvReac suicidal Verified 05/20/22 14:59 thoughts Review of Systems Review of Systems: Pertinent positives and negatives as stated in HPI [facility] Past Medical History Source: nursing notes reviewed Medical History Anxiety Dizziness Excessive sleepiness History of kidney stones PTSD (post-traumatic stress disorder) Syncope Social History Social History Household Members: None Household Members Other:: Cat Gaudencio Housing: Apartment Do you presently have visiting nurse or other home services: No Unable to assess alcohol history related to: Unknown Patient Tobacco Use Status: Current everyday Tobacco user Tobacco use type: Cigarette Cigarettes Per Day: 10 Years Smoked: 7 Substance Use Type: Marijuana Advance Directives: No Advance Directives Information Provided: Yes service: No Current occupational status: employed Sexual orientation: Lesbian/Kimbrough/Homosexual Physical Exam ED Vital Signs: Vital Signs - 24 hr 06/24/22 08:40 Temperature 98.6 F Pulse Rate 110 H Respiratory Rate 20 Blood Pressure 151/95 H Pulse Oximetry 96 Oxygen Delivery Method Room Air BMI result Body Mass Index 39.7 VITAL SIGNS: Reviewed. GENERAL: Well developed, well nourished, in no acute distress. HEAD: Normocephalic/atraumatic EYES: PERRLA, EOMI EARS: Ext canals without abnormality, TMs non-bulging and non-erythematous NOSE: Nares patent bilateral OROPHARYNX: no oral lesions noted, posterior pharynx clear NECK: Supple, no adenopathy LUNGS: Normal breath sounds. No adventitious sounds or accessory muscle use. SpO2<96> CARDIOVASCULAR: Regular rate and rhythm without noted murmurs ABDOMEN: Soft, non-tender, non-distended with bowel sounds. MUSCULOSKELETAL: No tenderness, deformities, or effusions noted on gross inspection. EXTREMITIES: No cyanosis, clubbing or edema. SKIN: Inspection of the skin reveals no rashes NEUROLOGIC: Alert and oriented x 4. Strength and sensation to light touch were grossly intact x 4, cranial nerves 2-12 are grossly intact. PSYCH: Logical, normal affect. Medical Decision Making Medical Decision Making MDM Narrative: 27-year-old male with history and clinical presentation of depression, PTSD, bipolar 2 disorder and components of anxiety. I reviewed all investigations and patient is medically optimized for further evaluation by the crisis team. Patient placed in physician observation because the patient needed more time for crisis evaluation. At the time observation was started the patient's vital signs were stable, patient is alert and oriented, neuro: Nonfocal, CV RRR, lungs clear Differential Diagnosis Please see the discussion above Lab Data Please see the discussion above 06/24/22 08:56 06/24/22 08:56 Labs: Lab Results 06/24/22 06/24/22 06/24/22 Range/Units 08:56 08:56 09:55 WBC 8.9 (4.8-10.8) X10*3/uL RBC 5.00 (4.60-5.80) X10*6/uL Hgb 14.5 (14.0-18.0) g/dl Hct 42.8 (42.0-52.0) % MCV 85.6 (80.0-98.0) fL MCH 29.0 (27.0-33.0) pg MCHC 33.9 (31.0-36.0) g/dl RDW 12.6 (11.0-16.0) % Plt Count 232 (160-400) X10*3/uL MPV 9.6 (9.4-12.4) fL Immature Gran % (Auto) 0.4 (0.0-0.4) % Neut % (Auto) 59.4 (45-73) % Lymph % (Auto) 29.0 (20-40) % [place] % (Auto) 9.2 (2-11) % Eos % (Auto) 1.6 (0-4) % Baso % (Auto) 0.4 (0-2) % Lymph # (Auto) 2.6 (1.2-4.9) X10*3/uL [place] # (Auto) 0.8 (0.1-1.2) X10*3/uL Eos # (Auto) 0.1 (0.0-0.4) X10*3/uL Baso # (Auto) 0.0 (0.0-0.2) X10*3/uL Abs Immat Gran (auto) 0.04 H (0.00-0.03) X10*3/uL Absolute Neuts (auto) 5.3 (2.0-8.3) x10*3/uL Absolute Nucleated RBC 0.000 (0.0-0.012) X10*3/uL Nucleated RBC % (auto) 0.0 (0.0-0.2) /100WBC Sodium 142 (135-145) mmol/L Potassium 4.6 (3.3-5.1) mmol/L Chloride 107 (96-108) mmol/L Carbon Dioxide 25 (22-29) mmol/L Anion Gap 15 (12-20) BUN 17 H (9-16) mg/dL Creatinine 1.04 (0.5-1.4) mg/dL Estim Creat Clear Calc 139.4 Estimated GFR > 60 Random Glucose 111 (60-115) mg/dL Calcium 9.8 (8.4-10.2) mg/dL Total Bilirubin 0.3 (0.0-1.0) mg/dL AST 23 (5-37) U/L ALT 53 H (0-40) U/L Alkaline Phosphatase 63 (39-117) U/L Total Protein 6.6 (6.5-8.0) g/dL Albumin 4.4 (3.5-5.0) g/dL Urine Color Yellow Urine Appearance Clear Urine pH 5.5 (5.0-9.0) Ur Specific [employer] 1.020 (1.005-1.025) Urine Protein Negative (Neg-Trace) mg/dL Urine Glucose (UA) Negative (Negative) mg/dL Urine Ketones Negative (Negative) mg/dL Urine Blood Negative (Negative) Urine Nitrite Negative (Negative) Ur Leukocyte Esterase Negative (Negative) Urine Opiates Screen (Not Detect) Urine Fentanyl Screen (Not Detect) Ur Barbiturates Screen (Not Detect) Ur Phencyclidine Scrn (Not Detect) Ur Amphetamines Screen (Not Detect) U Benzodiazepines Scrn (Not Detect) Urine Cocaine Screen (Not Detect) U Marijuana (THC) Screen (Not Detect) Ethyl Alcohol < 10 mg/dL 06/24/22 Range/Units 09:55 WBC (4.8-10.8) X10*3/uL RBC (4.60-5.80) X10*6/uL Hgb (14.0-18.0) g/dl Hct (42.0-52.0) % MCV (80.0-98.0) fL MCH (27.0-33.0) pg MCHC (31.0-36.0) g/dl RDW (11.0-16.0) % Plt Count (160-400) X10*3/uL MPV (9.4-12.4) fL Immature Gran % (Auto) (0.0-0.4) % Neut % (Auto) (45-73) % Lymph % (Auto) (20-40) % [place] % (Auto) (2-11) % Eos % (Auto) (0-4) % Baso % (Auto) (0-2) % Lymph # (Auto) (1.2-4.9) X10*3/uL [place] # (Auto) (0.1-1.2) X10*3/uL Eos # (Auto) (0.0-0.4) X10*3/uL Baso # (Auto) (0.0-0.2) X10*3/uL Abs Immat Gran (auto) (0.00-0.03) X10*3/uL Absolute Neuts (auto) (2.0-8.3) x10*3/uL Absolute Nucleated RBC (0.0-0.012) X10*3/uL Nucleated RBC % (auto) (0.0-0.2) /100WBC Sodium (135-145) mmol/L Potassium (3.3-5.1) mmol/L Chloride (96-108) mmol/L Carbon Dioxide (22-29) mmol/L Anion Gap (12-20) BUN (9-16) mg/dL Creatinine (0.5-1.4) mg/dL Estim Creat Clear Calc Estimated GFR Random Glucose (60-115) mg/dL Calcium (8.4-10.2) mg/dL Total Bilirubin (0.0-1.0) mg/dL AST (5-37) U/L ALT (0-40) U/L Alkaline Phosphatase (39-117) U/L Total Protein (6.5-8.0) g/dL Albumin (3.5-5.0) g/dL Urine Color Urine Appearance Urine pH (5.0-9.0) Ur Specific [employer] (1.005-1.025) Urine Protein (Neg-Trace) mg/dL Urine Glucose (UA) (Negative) mg/dL Urine Ketones (Negative) mg/dL Urine Blood (Negative) Urine Nitrite (Negative) Ur Leukocyte Esterase (Negative) Urine Opiates Screen Not Detected (Not Detect) Urine Fentanyl Screen Not Detected (Not Detect) Ur Barbiturates Screen Not Detected (Not Detect) Ur Phencyclidine Scrn Not Detected (Not Detect) Ur Amphetamines Screen Not Detected (Not Detect) U Benzodiazepines Scrn Not Detected (Not Detect) Urine Cocaine Screen Not Detected (Not Detect) U Marijuana (THC) Screen POSITIVE H (Not Detect) Ethyl Alcohol mg/dL Independent Interpretation I performed an independent interpretation of an: EKG Interpretation: Normal sinus rhythm, HR-94, no STEMI, the noted nonspecific T-wave abnormalities consistent with prior EKG from May of this year External Record Review External record reviewed: Outpatient record and Prior outpatient labs Discharge Plan Discharge Clinical Impression: Bipolar II disorder, severe, depressed, with anxious distress, PTSD (post-traumatic stress disorder) Patient Disposition: Still a Patient Prescriptions: No Action trazodone 100 mg tablet 1 tab PO BEDTIME nicotine (polacrilex) 2 mg Gum 4 mg buccal Q2H PRN (Reason: nicotine cravings) 30 Days Qty: 120 0RF lamotrigine 25 mg Tablet 25 mg PO BEDTIME 30 Days Qty: 30 0RF nicotine 21 mg/24 hr Patch 24 Hour 21 mg transdermal DAILY PRN (Reason: smoking cessation) 28 Days Qty: 28 0RF hydroxyzine HCl 25 mg Tablet 25 mg PO BID PRN (Reason: Anxiety) 30 Days Qty: 60 0RF bupropion HCl 150 mg Tablet Extended Release 24 Hr 150 mg PO DAILY 30 Days Qty: 30 0RF olanzapine 2.5 mg Tablet 2.5 mg PO Q4H PRN (Reason: severe anxiety) 30 Days Qty: 60 0RF Latuda 20 mg tablet 20 mg PO BID 30 Days Qty: 60 0RF Rx Instructions: must administer with food (at least 350 calories)
[2022-06-24 09:05] LABS: MANUAL DIFF FLAG NO
[2022-06-24 09:08] LABS: Basophils Percent Auto 0.4 % (0-2); Eosinophils Absolute Auto 0.1 X10*3/uL (0.0-0.4); Eosinophils Percent Auto 1.6 % (0-4); Hematocrit 42.8 % (42.0-52.0); Hemoglobin 14.5 g/dl (14.0-18.0); Imm Gran Abs Auto 0.04 X10*3/uL (0.00-0.03); Imm Gran Pct Auto 0.4 % (0.0-0.4); Lymphocytes Absolute Auto 2.6 X10*3/uL (1.2-4.9); Mean Corpuscular HGB Conc 33.9 g/dl (31.0-36.0); Mean Corpuscular Volume 85.6 fL (80.0-98.0); Mean Platelet Volume 9.6 fL (9.4-12.4); Monocytes Absolute Auto 0.8 X10*3/uL (0.1-1.2); Monocytes Percent Auto 9.2 % (2-11); Neutrophils Absolute Auto 5.3 x10*3/uL (2.0-8.3); Neutrophils Percent Auto 59.4 % (45-73); Platelet Count 232 X10*3/uL (160-400); Red Cell Distribution Width 12.6 % (11.0-16.0); White Blood Count 8.9 X10*3/uL (4.8-10.8)
[2022-06-24 09:30] LABS: Alanine Aminotransferase 53 U/L (0-40); Albumin Level 4.4 g/dL (3.5-5.0); Alkaline Phosphatase 63 U/L (39-117); Anion Gap 15 (12-20); Aspartate Amino Transferase 23 U/L (5-37); Bilirubin Total 0.3 mg/dL (0.0-1.0); Blood Urea Nitrogen 17 mg/dL (9-16); Calcium 9.8 mg/dL (8.4-10.2); Carbon Dioxide 25 mmol/L (22-29); Chloride 107 mmol/L (96-108); Creatinine Clr Calc Pharmacy 139.4; Estimated Glomerular Filt Rate > 60; Ethanol < 10 mg/dL; Glucose Random 111 mg/dL (60-115); Potassium 4.6 mmol/L (3.3-5.1); Sodium 142 mmol/L (135-145); Total Protein 6.6 g/dL (6.5-8.0)
[2022-06-24 10:02] LABS: Appearance Urine Clear; Color Urine Yellow; Glucose Urine UA Negative (Negative); Leukocyte Esterase Urine Negative (Negative); Nitrite Urine Negative (Negative); PH 5.5 (5.0-9.0); Urine Blood Negative (Negative); Urine Ketones Negative (Negative); Urine Protein Negative (Neg-Trace)
[2022-06-24 10:15] LABS: Amphetamine Screen Urine Not Detected (Not Detect); Barbiturates, Urine Not Detected (Not Detect); Benzodiazepines Screen Urine Not Detected (Not Detect); Cannabinoid Screen Urine POSITIVE (Not Detect); Cocaine Screen Urine Not Detected (Not Detect); Fentanyl, urine Not Detected (Not Detect); Opiate Screen Urine Not Detected (Not Detect); Phencyclidine Screen Urine Not Detected (Not Detect)
--- NOTE | 2022-06-24 13:16 | PC.NURSE ---
Patient came into pod was not changed evaluated by care team before came in the pod. Will leave in waiting area until we know if he is leaving shortly.
--- NOTE | 2022-06-24 13:25 | PC.NURSE ---
Patient getting changed over now.
--- NOTE | 2022-06-24 14:30 | MHC.CARE ---
Patient evaluated by the CARE Team, he is voluntary for inpatient psychiatric treatment. If patient requests discharge he must meet with a clinician first for safety planning.
--- NOTE | 2022-06-24 18:12 | MHC.CARE ---
Patient unable to get into preferred program in [place], does not need to be held here in the ED for inpatient admission. Plan is to discharge home, sister picking him up at 7:30 night. PHP intake will be scheduled for Fri or . CARE Team will follow up with call to patient tomorrow.
--- NOTE | 2022-06-25 09:08 | MHC.CARE ---
PHP has left message for patient this am, will be able to get him in for appointment today if he calls back. CARE Team to follow up with patient regarding his discharge yesterday/depression/safety and CSP referral.
--- NOTE | 2022-06-25 10:04 | MHC.CARE ---
[facility] PHP referral form completed and faxed it to Madalyn Begum @ .
== END 2022-06-24 20:12 | disposition home or self-care (01) ==
PROVIDERS: Emergency Provider Student in an Organized Health Care Education/Training Program; PCP Internal Medicine
DX: F33.1 Major depressive disorder, recurrent, moderate (principal); F43.10 Post-traumatic stress disorder, unspecified; F41.1 Generalized anxiety disorder; F43.0 Acute stress reaction; R94.31 Abnormal electrocardiogram [ECG] [EKG]; F12.90 Cannabis use, unspecified, uncomplicated; F17.210 Nicotine dependence, cigarettes, uncomplicated; Z71.6 Tobacco abuse counseling; Z79.899 Other long term (current) drug therapy
CPT/HCPCS: 36415; 80053; 80307; 81003; 82077; 85025; 93005; 99284; S9485

== ENCOUNTER 2022-07-24 13:00 | Outpatient (RCR) | payer OTHER, SELFPAY ==
[2022-06-28 10:44] VITALS: BP 118/80; PULSE 76; TEMP 36.8
[2022-06-28 10:46] VITALS: BMI 92.3
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
--- NOTE | 2022-07-04 15:40 | HO.PHP ---
Clients case was reviewed and opened today in treatment team.
--- NOTE | 2022-07-05 10:53 | P.PNPSP_ITS ---
Subjective Subjective Date of Service: 07/05/22 Reason For Visit: depression Medical Problems Affecting Mental Status: No Interim History: Continues with depressed mood. Passive SI, no intent or plan. Has not yet received Latuda from pharmacy, waiting for medication to go through. Would like to find a provider for ketamine therapy, or ECT therapy. Medication Compliance: Yes Side effects from medications: No Attending Groups: Yes Review of Systems Acute medical concerns: No Medical Review of Systems: unchanged Review of Systems Review of Systems Yes all other systems are reviewed and are negative Constitutional: Reports no additional constitutional complaints Mental Status Exam Mental Status Exam Narrative: Well-developed, overweight male, in NAD. General appearance, fair grooming, appropriately dressed for season and age. Musculoskeletal: No involuntary movements noted, motor activity calm, posture within normal limits. Manner/behavior: Calm, cooperative. Speech: Fluent, unimpaired, normal rate volume and rhythm. Mood: depressed. Affect: depressed, flat, blunted Thought process/associations: Linear Thought content: Normal, future oriented. Delusions: None. Hallucinations: None. Suicidality/self destructive behavior: Passive SI, no intent or plan. Homicidality/violence: none. Reliability: fair Judgment: Fair Insight: Fair MSK exam: Normal ambulation, no cogwheeling or rigidity noted. Patient Orientation: Person, Place, Time and Situation Patient Behavior: Appropriate, Cooperative and Good Eye Contact Diagnostics Vital Signs (24Hr): BMI result Body Mass Index 92.3 Assessment & Plan Assessment & Plan (1) Bipolar II disorder, severe, depressed, with anxious distress: Status: Acute Code(s): F31.81 - Bipolar II disorder Assessment and Plan: Continues with depressed mood. Passive SI, no intent or plan. Has not yet received Latuda from pharmacy, waiting for medication to go through. Discussed this medication. Patient and this provider had called pharmacy several days ago, we were informed that if formulation was written as 40 mg once daily rather than 20 mg b.i.d., it would be approved. Patient was encouraged to call pharmacy directly, or go to pharmacy after leaving program this afternoon, to inquire. He stated that he would do so. Patient also reports that he is not so sure if he had as remarkable improvement while inpatient recently here with Latuda, or if it was the fact that he did not use cannabis for 1 week while here. Patient was encouraged to refrain from cannabis use going forward, especially as it appears to increase his depressive symptoms. Would like to find a provider for ketamine therapy, or ECT therapy. States he had considered TMS, but was told that due to his bipolar diagnosis it would not be appropriate. States that he continues to struggle with his chronic depressive symptoms. Patient has purchased LSD, with plan to use as a substitute for ketamine therapy. We discussed the risks of this. Patient was encouraged to refrain from doing so, as well as contact during company and or outpatient providers for referral to ketamine assisted therapy. He stated that he would do so. (2) PTSD (post-traumatic stress disorder): Status: Acute Code(s): F43.10 - Post-traumatic stress disorder, unspecified Plan 1. Continue with current [facility] plan of care. 2. Continue with current medications as prescribed. Patient encouraged to contact pharmacy for Latuda. 3. Patient encouraged to abstain from cannabis and LSD. 4. Follow-up as per protocol. Patient educated on: diagnosis, medication risk/benefits and substance abuse Informed Consent: understands Reason for contiued partial hosp. stay Substantial Risk for: harm to self, inability to function, rapid decompensation and med/psych decompensation Certification I certify that partial hospital treatment is medically necessary due to the symptoms and problems resulting from the patient's mental illness and the failure to treat the patient at the partial hospital level of care would likely result in the patient requiring inpatient psychiatric care which could not be prevented at a less intensive level of care. Total time managing care of this patient today _25___ minutes. Discharge Plan Discharge Attending provider: Enrico Mcpherson Medications: New lurasidone [Latuda] 40 mg tablet 40 mg PO DAILY Qty: 30 0RF Rx Instructions: must administer with food (at least 350 calories) Discontinued lurasidone [Latuda] 20 mg tablet 20 mg PO BID 30 Days Qty: 60 0RF Rx Instructions: must administer with food (at least 350 calories) No Action trazodone 100 mg tablet 1 tab PO BEDTIME nicotine (polacrilex) 2 mg Gum 4 mg buccal Q2H PRN (Reason: nicotine cravings) 30 Days Qty: 120 0RF lamotrigine 25 mg Tablet 25 mg PO BEDTIME 30 Days Qty: 30 0RF nicotine 21 mg/24 hr Patch 24 Hour 21 mg transdermal DAILY PRN (Reason: smoking cessation) 28 Days Qty: 28 0RF hydroxyzine HCl 25 mg Tablet 25 mg PO BID PRN (Reason: Anxiety) 30 Days Qty: 60 0RF bupropion HCl 150 mg Tablet Extended Release 24 Hr 150 mg PO DAILY 30 Days Qty: 30 0RF olanzapine 2.5 mg Tablet 2.5 mg PO Q4H PRN (Reason: severe anxiety) 30 Days Qty: 60 0RF Stand Alone Forms: Patient Portal Discharge page
--- NOTE | 2022-07-11 08:56 | HO.PHPPROGNO ---
Subjective Subjective Date of Service: 07/11/22 Reason For Visit: depression Interim History: Patient called to say he is not coming in today. He has been up past several nights with little to no sleep. Describes manic behavior, making multiple purchases, rapid speech, not sleeping. Denies SI, feels safe. Medication Compliance: Yes Side effects from medications: No Review of Systems Acute medical concerns: No Medical Review of Systems: unchanged Mental Status Exam Mental Status Exam Narrative: Patient called to state he will not be in today. Presented on telephone with rapid pressured speech. Denies SI, no AH/VH reported. 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 Reports he has begun taking Latuda as prescribed several days ago. Reports feeling manic symptoms. Has been buying things excessively, racing thoughts, unable to sleep. Denies SI, feels safe. Reviewed medications with patient. He was instructed to take 2 doses of his p.r.n. olanzapine at this time, for dose of 5 mg. He was also instructed to take his p.r.n. hydroxyzine at this time. He was advised to check back in with us if he at any time feels unsafe. He was agreeable and gave verbal permission for staff to contact his sister to ask her to check on him later in the day. Plan 1. Patient to take 2 doses of olanzapine 2.5 mg now, for dose of 5 mg total. Patient also instructed to utilize the p.r.n. olanzapine later in the day if needed. 2. Patient to take hydroxyzine p.r.n. at this time as well. 3. Patient was agreeable to staff contacting family member. 4. Follow-up as per protocol. Patient educated on: diagnosis, medication risk/benefits and therapeutic strategies Informed Consent: understands Reason for contiued partial hosp. stay Substantial Risk for: harm to self, inability to function, rapid decompensation and med/psych decompensation Certification I certify that partial hospital treatment is medically necessary due to the symptoms and problems resulting from the patient's mental illness and the failure to treat the patient at the partial hospital level of care would likely result in the patient requiring inpatient psychiatric care which could not be prevented at a less intensive level of care. Total time managing care of this patient today __15__ minutes. Discharge Plan Discharge Attending provider: Enrico Mcpherson Medications: New lurasidone [Latuda] 40 mg tablet 40 mg PO DAILY Qty: 30 0RF Rx Instructions: must administer with food (at least 350 calories) Discontinued lurasidone [Latuda] 20 mg tablet 20 mg PO BID 30 Days Qty: 60 0RF Rx Instructions: must administer with food (at least 350 calories) No Action trazodone 100 mg tablet 1 tab PO BEDTIME nicotine (polacrilex) 2 mg Gum 4 mg buccal Q2H PRN (Reason: nicotine cravings) 30 Days Qty: 120 0RF lamotrigine 25 mg Tablet 25 mg PO BEDTIME 30 Days Qty: 30 0RF nicotine 21 mg/24 hr Patch 24 Hour 21 mg transdermal DAILY PRN (Reason: smoking cessation) 28 Days Qty: 28 0RF hydroxyzine HCl 25 mg Tablet 25 mg PO BID PRN (Reason: Anxiety) 30 Days Qty: 60 0RF bupropion HCl 150 mg Tablet Extended Release 24 Hr 150 mg PO DAILY 30 Days Qty: 30 0RF olanzapine 2.5 mg Tablet 2.5 mg PO Q4H PRN (Reason: severe anxiety) 30 Days Qty: 60 0RF Stand Alone Forms: Patient Portal Discharge page Telehealth Telehealth Location of provider rendering services: practice address Location of patient: address on file Patient Identification confirmed using: Name, : Yes Telehealth method: voice only Patient verbally consented to treatment: Yes Patient verbally consented to billing insurance company: Yes Patient informed of any privacy concerns related to visit: Yes Minutes spent on Phone/Video with Pt.: 10
--- NOTE | 2022-07-11 09:06 | HO.PHP ---
I called and spoke with Dans sister Giovanni to inform her that he is presenting as going into a manic state. She states that she observed this also and had talked with him about going to the ed for an assessment but he refused. She agreed that she will call him throughout the day to check in with him.
--- NOTE | 2022-07-12 09:32 | PC.NURSE ---
Patient did not show up to the program this morning. I spoke to Estrada and he stated he is feeling groggy this morning but feeling better having less energy and feels more calm and less manic because of the mediations. He is alert and oriented x4. He stated he was able to sleep for four hours last night. He stated he is taking his Latuda medication. He was told by [facility] prescriber Latisha to take 2 tabs of Olanzapine PRN dose when taking the first dose then take one dose afterwards Q 4 hours PRN. Patient misunderstood and took additional the additional dose PRN. Destiney Mendoza [facility] prescriber is aware. Sun spoke to Gennaro and told him to take one tab of Olanzapine PRN and to take it no more than 4 times a day if needed. Patient appeared to understand the instructions. Patient is planning on coming to the program on Friday, closed on Friday. He reports he is planning on going to his Aunts house to do laundry and is picking his sister up at the airport on Friday and he will be spending time with her. Patient reports he is safe and denied SI or thoughts to harm himself.
--- NOTE | 2022-07-16 10:15 | P.PNPSP_ITS ---
Subjective Subjective Date of Service: 07/16/22 Reason For Visit: depression Medical Problems Affecting Mental Status: No Interim History: Describes mood as ?irritable, but more stable?. No SI, no safety concerns. Slept over weekend, after being up for several Days last week. Has been taking Latuda daily, continues with p.r.n. olanzapine. Medication Compliance: Yes Side effects from medications: No Attending Groups: Yes Review of Systems Acute medical concerns: No Medical Review of Systems: unchanged Review of Systems Review of Systems Yes all other systems are reviewed and are negative Constitutional: Reports no additional constitutional complaints Mental Status Exam Mental Status Exam Narrative: NAD Patient Appearance: Appropriate Patient Orientation: Person, Place, Time and Situation Level of Consciousness: Appropriate Patient Behavior: Appropriate, Cooperative and Good Eye Contact Mood Description: Appropriate and Angry (Reports feeling irritable) Affect Description: Appropriate Patient Cognition Impaired: No Ability to Follow Directions: Good Speech Pattern: Clear and Appropriate Memory Description: Intact Hallucinations: None Thought Process: Intact Thought Content: positive for Intact Judgement: Fair Diagnostics Vital Signs (24Hr): BMI result Body Mass Index 92.3 Assessment & Plan Assessment & Plan (1) Bipolar II disorder, severe, depressed, with anxious distress: Status: Acute Code(s): F31.81 - Bipolar II disorder Assessment and Plan: Patient reports he was tired over weekend, slept. Denies SI, no safety concerns. Reports that he feels ?kind of confused ?, his manic behavior last week was surprising to him. He had had racing thoughts, had bought multiple expensive items with his credit card. Now realizes that he was displaying manic behavior at that time. States that his family is involved. His brother and here working outs and arrangement so that his brother can manage his finances, especially during times where he displaces type of behavior. States that his brother and sister have both been supportive. States that it feels strange to him at this time not to be suicidal, as he has had chronic SI for months. Overall he does feel improved. Sleeping well, normal appetite. Continues with some cannabis use, reviewed use, potential complications with patient. Describes mood as ?more irritable, although more stable. Continues to utilize the p.r.n. olanzapine at night, has been taking 5 mg. We discussed continue other medications as prescribed, including Latuda daily with meal. Also discussed taking 2.5 olanzapine rather than 5 mg, and only as needed at this point. He was in agreement with this. (2) PTSD (post-traumatic stress disorder): Status: Acute Code(s): F43.10 - Post-traumatic stress disorder, unspecified Plan 1. Continue with current [facility] plan of care. 2. Resume normal p.r.n. dosing of olanzapine for anxiety. 3. Continue other medications as currently prescribed. 4. Follow-up as per protocol. Patient educated on: diagnosis, medication risk/benefits, substance abuse and therapeutic strategies Reason for contiued partial hosp. stay Substantial Risk for: harm to self, inability to function, rapid decompensation and med/psych decompensation Certification I certify that partial hospital treatment is medically necessary due to the symptoms and problems resulting from the patient's mental illness and the failure to treat the patient at the partial hospital level of care would likely result in the patient requiring inpatient psychiatric care which could not be prevented at a less intensive level of care. Total time managing care of this patient today __20__ minutes. Discharge Plan Discharge Attending provider: Enrico Mcpherson Medications: New lurasidone [Latuda] 40 mg tablet 40 mg PO DAILY Qty: 30 0RF Rx Instructions: must administer with food (at least 350 calories) Discontinued lurasidone [Latuda] 20 mg tablet 20 mg PO BID 30 Days Qty: 60 0RF Rx Instructions: must administer with food (at least 350 calories) No Action trazodone 100 mg tablet 1 tab PO BEDTIME nicotine (polacrilex) 2 mg Gum 4 mg buccal Q2H PRN (Reason: nicotine cravings) 30 Days Qty: 120 0RF lamotrigine 25 mg Tablet 25 mg PO BEDTIME 30 Days Qty: 30 0RF nicotine 21 mg/24 hr Patch 24 Hour 21 mg transdermal DAILY PRN (Reason: smoking cessation) 28 Days Qty: 28 0RF hydroxyzine HCl 25 mg Tablet 25 mg PO BID PRN (Reason: Anxiety) 30 Days Qty: 60 0RF bupropion HCl 150 mg Tablet Extended Release 24 Hr 150 mg PO DAILY 30 Days Qty: 30 0RF olanzapine 2.5 mg Tablet 2.5 mg PO Q4H PRN (Reason: severe anxiety) 30 Days Qty: 60 0RF Stand Alone Forms: Patient Portal Discharge page
--- NOTE | 2022-07-19 09:20 | PC.NURSE ---
Estraad called the program and left a message stating her overslept and will be in the program on Friday. [facility] staff is aware.
--- NOTE | 2022-07-22 09:23 | PC.NURSE ---
Estrada did not show up to the program this morning. I called Estrada and he stated he has a therapy appointment today that he forgot about. He also stated he has a psychiatry appointment on . I asked him if he was safe and he stated he was. Denied SI. He plans on coming to the program on Friday.
--- NOTE | 2022-07-23 09:25 | PC.NURSE ---
Patient did not show up to the program. I called Estrada and he stated he is having Diarrhea and stomach pain. I advised he reach out to his PCP if it doesn't get better or worsens. He stated he is going to call his sister. Estrada denied SI or thoughts to harm himself. Denied any safety issues. He appeared calm and cooperative. [facility] staff is aware.
--- NOTE | 2022-07-23 13:10 | HO.PHP ---
I called and left a message for kasia to return my call re check in and to talk about treatment and aftercare plans
--- NOTE | 2022-07-24 12:00 | P.PNPSP_ITS ---
Subjective Subjective Date of Service: 07/24/22 Reason For Visit: depression Medical Problems Affecting Mental Status: No Interim History: Increased paranoia past several weeks, states ?it feels like nothing is real anymore ?. No SI, no safety concerns, states Latuda is helping, not as depressed. No mood lability noted. Denies any manic behaviors. Reports some online shopping, states it has greatly subsided. Saw therapist yesterday, sees outpatient psychiatric provider tomorrow, Jenna Hartley. Reports stop the olanzapine altogether, states it was making him feel too sleepy. Continues to feel sedated during the day, states he is sleeping poorly at night. Medication Compliance: Yes Side effects from medications: Yes (Finding olanzapine sedating.) Attending Groups: Yes Review of Systems Acute medical concerns: No Medical Review of Systems: changed Review of Systems Constitutional: Reports daytime sleepiness and Reports difficulty sleeping (at night) Mental Status Exam Mental Status Exam Narrative: NAD Patient Appearance: Appropriate Patient Orientation: Person, Place, Time and Situation Level of Consciousness: Appropriate Patient Behavior: Appropriate, Cooperative and Good Eye Contact Mood Description: Appropriate Affect Description: Appropriate and Flat Patient Cognition Impaired: No Ability to Follow Directions: Good Speech Pattern: Clear and Appropriate Memory Description: Intact Hallucinations: None Thought Process: Intact Thought Content: positive for Intact Depressive Symptoms: Difficulty Sleeping (Poor sleep at night, increased sedation, sleeping during day.), Unhappiness and Increased Fatigue Judgement: Fair Diagnostics Vital Signs (24Hr): BMI result Body Mass Index 92.3 Assessment & Plan Assessment & Plan (1) Bipolar II disorder, severe, depressed, with anxious distress: Status: Acute Code(s): F31.81 - Bipolar II disorder Assessment and Plan: Increased paranoia past several weeks, states ?it feels like nothing is real anymore ?. No SI, no safety concerns, states Latuda is helping, not as depressed. No mood lability noted. Denies any manic behaviors. Reports some online shopping, states it has greatly subsided. Saw therapist yesterday, sees outpatient psychiatric provider tomorrow, Jenna Hartley. Would like to ask her about switching olanzapine to quetiapine. Then goes on to say that he did start blacking out with the quetiapine. Reports stop the olanzapine altogether, states it was making him feel too sleepy. Continues to feel sedated during the day, states he is sleeping poorly at night. We discussed resuming the bedtime olanzapine 2.5 mg p.r.n., to take with the trazodone. Review side effects, patient was assured low-dose will not extending to daytime sleepiness throughout the next day, it may help improve sl eep pattern during the night. He states that he will try that this evening. He plans to go grocery shopping after partial today, and in stay at home. Patient was encouraged to do activities such as a short walk, etc. in order to help stay awake for longer today, to help reverse sleep pattern. He stated that he would try this. (2) PTSD (post-traumatic stress disorder): Status: Acute Code(s): F43.10 - Post-traumatic stress disorder, unspecified Plan 1. Continue with current [facility] plan of care. 2. Patient encouraged to utilize p.r.n. olanzapine 2.5 mg tonight at bedtime along with his trazodone, to help improve nighttime sleep. 3. Patient has outpatient appointment tomorrow with psychiatric provider, will discuss any further medication changes at that time with outpatient provider. 4. Follow-up as per protocol. Patient educated on: diagnosis, medication risk/benefits and therapeutic strategies Informed Consent: understands Reason for contiued partial hosp. stay Substantial Risk for: harm to self, inability to function and rapid decompensation Certification I certify that partial hospital treatment is medically necessary due to the symptoms and problems resulting from the patient's mental illness and the failure to treat the patient at the partial hospital level of care would likely result in the patient requiring inpatient psychiatric care which could not be prevented at a less intensive level of care. Total time managing care of this patient today __20__ minutes. Discharge Plan Discharge Attending provider: Enrico Mcpherson Medications: New lurasidone [Latuda] 40 mg tablet 40 mg PO DAILY Qty: 30 0RF Rx Instructions: must administer with food (at least 350 calories) Discontinued lurasidone [Latuda] 20 mg tablet 20 mg PO BID 30 Days Qty: 60 0RF Rx Instructions: must administer with food (at least 350 calories) No Action trazodone 100 mg tablet 1 tab PO BEDTIME nicotine (polacrilex) 2 mg Gum 4 mg buccal Q2H PRN (Reason: nicotine cravings) 30 Days Qty: 120 0RF lamotrigine 25 mg Tablet 25 mg PO BEDTIME 30 Days Qty: 30 0RF nicotine 21 mg/24 hr Patch 24 Hour 21 mg transdermal DAILY PRN (Reason: smoking cessation) 28 Days Qty: 28 0RF hydroxyzine HCl 25 mg Tablet 25 mg PO BID PRN (Reason: Anxiety) 30 Days Qty: 60 0RF bupropion HCl 150 mg Tablet Extended Release 24 Hr 150 mg PO DAILY 30 Days Qty: 30 0RF olanzapine 2.5 mg Tablet 2.5 mg PO Q4H PRN (Reason: severe anxiety) 30 Days Qty: 60 0RF Stand Alone Forms: Patient Portal Discharge page
--- NOTE | 2022-07-25 15:29 | HO.PHP ---
I called and left a message requesting a call back and informing him that he may have to be discharged at this time because he has not been here.
--- NOTE | 2022-07-26 09:30 | PC.NURSE ---
Estrada did not show up to the program this morning. I called Estrada and he stated he did get Carolyn's message regarding discharge from the program d/t attendance issues. He stated he doesn't feel the program is right for him at this time. He stated the medication has helped him. He reports he has a therapist appointment on Friday at 4 pm and recently had a prescriber appointment on Friday07/25/22. He denied SI or thoughts to harm himself. 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 Estrada is aware that Carolyn will be calling with f/u discharge information from the program.
--- NOTE | 2022-07-26 14:16 | HO.PHP ---
I called and left a message for Gennaro to call if he needs further assistance with aftercare support. I reminded him of the [facility] groups.
== END 2022-07-24 23:59 | disposition home or self-care (01) ==
LOC: HO.PHPA 13:00
PROVIDERS: Visit Provider Psychiatry & Neurology Psychiatry
DX: F31.81 Bipolar II disorder (principal); F43.10 Post-traumatic stress disorder, unspecified; Z79.899 Other long term (current) drug therapy
CPT/HCPCS: 90791; 90853

== ENCOUNTER 2022-08-14 15:09 | Emergency (ER) | payer OTHER, SELFPAY ==
[2022-08-14 15:16] VITALS: BP 126/88; BP 142/91; PULSE 125; PULSE 130; RESP 18; TEMP 36.6; O2SAT 95; O2SAT 98; BMI 44.3
[2022-08-14 16:07] LABS: Appearance Urine Clear; Color Urine Dark Yellow; Glucose Urine UA Negative (Negative); Leukocyte Esterase Urine Negative (Negative); Nitrite Urine Negative (Negative); PH 5.5 (5.0-9.0); Specific Gravity - Urine >= 1.030 (1.005-1.025); UMIC TRIGGER UACC YES; Urine Blood Negative (Negative); Urine Ketones Trace mg/dL (Negative); Urine Protein 100 (2+) mg/dL (Neg-Trace)
[2022-08-14 16:19] LABS: Amphetamine Screen Urine Not Detected (Not Detect); Barbiturates, Urine Not Detected (Not Detect); Benzodiazepines Screen Urine Not Detected (Not Detect); Cannabinoid Screen Urine POSITIVE (Not Detect); Cocaine Screen Urine Not Detected (Not Detect); Fentanyl, urine Not Detected (Not Detect); Opiate Screen Urine Not Detected (Not Detect); Phencyclidine Screen Urine Not Detected (Not Detect)
[2022-08-14 16:22] LABS: Bacteria Urine None Seen (None Seen); RBC Urine 0-2 /HPF (0-2); Squamous Epithelial Cell Urine 0-2 /HPF (0-2); WBC Urine 0-5 /HPF (0-5)
[2022-08-14 16:23] LABS: MANUAL DIFF FLAG NO
[2022-08-14 16:28] LABS: Basophils Percent Auto 0.2 % (0-2); Eosinophils Percent Auto 0.4 % (0-4); Hematocrit 44.1 % (42.0-52.0); Hemoglobin 15.5 g/dl (14.0-18.0); Imm Gran Abs Auto 0.06 X10*3/uL (0.00-0.03); Imm Gran Pct Auto 0.6 % (0.0-0.4); Lymphocytes Percent Auto 19.1 % (20-40); Mean Corpuscular HGB Conc 35.1 g/dl (31.0-36.0); Mean Corpuscular Hemoglobin 28.6 pg (27.0-33.0); Mean Corpuscular Volume 81.4 fL (80.0-98.0); Mean Platelet Volume 9.7 fL (9.4-12.4); Monocytes Absolute Auto 0.8 X10*3/uL (0.1-1.2); Monocytes Percent Auto 7.7 % (2-11); Neutrophils Absolute Auto 7.6 x10*3/uL (2.0-8.3); Platelet Count 262 X10*3/uL (160-400); Red Blood Count 5.42 X10*6/uL (4.60-5.80); Red Cell Distribution Width 12.1 % (11.0-16.0); White Blood Count 10.6 X10*3/uL (4.8-10.8)
[2022-08-14 16:49] LABS: COVID-19 Test Negative (Negative); IDNOW Serial# BCCEAD1C
[2022-08-14 16:51] LABS: Alanine Aminotransferase 50 U/L (0-40); Albumin Level 4.8 g/dL (3.5-5.0); Alkaline Phosphatase 72 U/L (39-117); Anion Gap 15 (12-20); Aspartate Amino Transferase 25 U/L (5-37); Bilirubin Total 0.4 mg/dL (0.0-1.0); Blood Urea Nitrogen 13 mg/dL (9-16); Carbon Dioxide 21 mmol/L (22-29); Chloride 111 mmol/L (96-108); Creatinine Clr Calc Pharmacy 146.3; Estimated Glomerular Filt Rate > 60; Ethanol < 10 mg/dL; Glucose Random 115 mg/dL (60-115); Potassium 3.8 mmol/L (3.3-5.1); Sodium 143 mmol/L (135-145); Total Protein 7.4 g/dL (6.5-8.0)
--- NOTE | 2022-08-14 16:56 | ED_ITS ---
HPI - Psych General Chief Complaint: Psychiatric Symptoms Stated Complaint: CRISIS, SEC 12 Time Seen by Provider: 08/14/22 15:57 Source: patient Mode of arrival: ambulatory Limitations: no limitations History of Present Illness HPI Narrative: 27-year-old male longstanding history of depression with previous suicide attempts, PTSD, bipolar disorder presents to the emergency department complete used as to why he is here. He reports he had a meeting with his psychiatrist earlier today after a recent medication change, he reported to his psychiatrist at since he has started lower acetone he has felt a lot better and is having decreased suicidal thoughts. However, patient does report he has intermittent suicidal thoughts however not right now. Patient states after his appointment he was encouraged to reach out to the crisis team to speak to them about his suicidal thoughts, he went to the grocery store and when he came back home police were waiting for him in told him that he was going to the hospital b ecause they were worried about him. Patient denies visual, auditory and tactile hallucinations. At this time denies suicidal and homicidal ideation. No medical complaints at this time. Related Data Home Medications Medication Instructions Recorded Confirmed lurasidone 40 mg tablet 40 mg PO DAILY 08/14/22 08/14/22 Previous Rx's Medication Instructions Recorded nicotine (polacrilex) 2 mg gum 4 mg buccal Q2H PRN nicotine 05/23/22 cravings 30 days #120 ea nicotine 21 mg/24 hr daily 21 mg transdermal DAILY PRN 05/23/22 transdermal patch smoking cessation 28 days #28 ea Allergies Allergy/AdvReac Type Severity Reaction Status Date / Time citalopram [From Celexa] AdvReac suicidal Verified 05/20/22 14:59 thoughts Review of Systems Review of Systems: Constitutional : No Weight loss, No Fever, No Chills, No Fatigue, No Malaise ENT/Mouth : No sore throat, No Rhinorrhea Eyes: No Eye Pain, No Swelling, No Redness Cardiovascular : No Chest Pain, No SOB, No Dyspnea on Exertion, No Orthopnea, No Edema, No Palpitations Respiratory : No Cough, No Sputum, No Wheezing Gastrointestinal : No Nausea, No Vomiting, No Diarrhea, No Constipation, No abdominal Pain, No Hematochezia, No Melena Genitourinary : No Dysuria, No Urinary Frequency, No Hematuria, Musculoskeletal : No joint pain, No Myalgias, No Joint Swelling Skin : No Skin Lesions, No rash Neuro : No Weakness, No Numbness, No Dizziness, No Headache Psych : No Anxiety/Panic, + Depression, No SI or HI All other systems reviewed and are negative Yes all other systems are reviewed and are negative [facility] Past Medical History Attestation statement: The following information was validated with the patient. Source: old records reviewed and nursing notes reviewed Medical History Anxiety Dizziness Excessive sleepiness History of kidney stones PTSD (post-traumatic stress disorder) Syncope Social History Social History Household Members: Other Household Members Other:: Cat Gaudencio Housing: Apartment Do you presently have visiting nurse or other home services: No Unable to assess alcohol history related to: Unknown Alcohol intake: never Patient Tobacco Use Status: Current everyday Tobacco user Tobacco use type: Cigarette Cigarettes Per Day: 4 Years Smoked: 7 Smoked in Last 30 Days: Yes Use of substances other than those prescribed or required for medical reasons: No Substance Use Type: Marijuana Substance Use Frequency: Chronic Longstanding Last Used Substance: Unknown Any prior treatment program specific to substance use: No Advance Directives: No Advance Directives Information Provided: No service: No Current occupational status: employed Sexual orientation: Lesbian/Kimbrough/Homosexual Physical Exam Vital Signs: Vital Signs: Last Vital Signs Temp 97.8 F 08/14/22 15:16 Pulse 125 H 08/14/22 15:16 Resp 18 08/14/22 15:16 BP 142/91 H 08/14/22 15:16 Pulse Ox 98 08/14/22 15:16 O2 Del Method Room Air 08/14/22 15:16 BMI result Body Mass Index 44.3 Vital signs stable Appearance: Alert.? Oriented X3.? No acute distress.? Head: Normocephalic, atraumatic, no step-offs or deformities Eyes: Pupils equal, round and reactive to light.? Neck: Normal inspection.? Neck supple.? CVS: Normal heart rate and rhythm.? Pulses normal.? Respiratory: No respiratory distress.? Breath sounds normal.? Abdomen: Soft and nontender.? Skin: Skin warm and dry.? Normal skin color.? Normal skin turgor.? Extremities: No lower extremity edema.? No calf ttp. 5/5 strength to bilateral upper and lower extremities Neuro: Oriented X 3.? No motor deficit.? No sensory deficit. CN 2-12 intact Course Reevaluation(s) Reevaluation #1: CBC appears to be within normal limits. Chemistry with no acute findings requiring intervention. UA without infection. Urine tox positive for marijuana. Ethanol negative. COVID negative. At this time patient to be placed into observation to allow more time to be evaluated by the behavioral health team. At time observation was started patient rome cooperative no acute distress will continue to monitor Time: 17:10 Medical Decision Making Medical Decision Making [facility] Narrative: 1600 27-year-old male presents after being sent in by his psychiatrist. On a Section 12 for suicidal soft Physical exam benign Concerns for bipolar disorder, depression, suicidal ideation. Will rule out polysubstance abuse alcohol intoxication and electrolyte abnormalities although unlikely Plan at this time labs, urine, urine toxicology and evaluation by behavioral health team Differential Diagnosis Differential Diagnoses: The differential diagnosis associated with the presentation includes Concerns for bipolar disorder, depression, suicidal ideation. Will rule out polysubstance abuse alcohol intoxication and electrolyte abnormalities although unlikely Admission/Observation Consideration of admission/observation: Escalation of care including admission/observation considered Lab Data [facility] Lab Attestation statement: I reviewed the patient's lab results. 08/14/22 16:17 08/14/22 16:17 Labs: Lab Results 08/14/22 08/14/22 08/14/22 Range/Units 15:58 15:58 15:58 WBC (4.8-10.8) X10*3/uL RBC (4.60-5.80) X10*6/uL Hgb (14.0-18.0) g/dl Hct (42.0-52.0) % MCV (80.0-98.0) fL MCH (27.0-33.0) pg MCHC (31.0-36.0) g/dl RDW (11.0-16.0) % Plt Count (160-400) X10*3/uL MPV (9.4-12.4) fL Immature Gran % (Auto) (0.0-0.4) % Neut % (Auto) (45-73) % Lymph % (Auto) (20-40) % [place] % (Auto) (2-11) % Eos % (Auto) (0-4) % Baso % (Auto) (0-2) % Lymph # (Auto) (1.2-4.9) X10*3/uL [place] # (Auto) (0.1-1.2) X10*3/uL Eos # (Auto) (0.0-0.4) X10*3/uL Baso # (Auto) (0.0-0.2) X10*3/uL Abs Immat Gran (auto) (0.00-0.03) X10*3/uL Absolute Neuts (auto) (2.0-8.3) x10*3/uL Absolute Nucleated RBC (0.0-0.012) X10*3/uL Nucleated RBC % (auto) (0.0-0.2) /100WBC Sodium (135-145) mmol/L Potassium (3.3-5.1) mmol/L Chloride (96-108) mmol/L Carbon Dioxide (22-29) mmol/L Anion Gap (12-20) BUN (9-16) mg/dL Creatinine (0.5-1.4) mg/dL Estim Creat Clear Calc Estimated GFR Random Glucose (60-115) mg/dL Calcium (8.4-10.2) mg/dL Total Bilirubin (0.0-1.0) mg/dL AST (5-37) U/L ALT (0-40) U/L Alkaline Phosphatase (39-117) U/L Total Protein (6.5-8.0) g/dL Albumin (3.5-5.0) g/dL Urine Color Dark Yellow Urine Appearance Clear Urine pH 5.5 (5.0-9.0) Ur Specific [place] >= 1.030 H (1.005-1.025) Urine Protein 100 (2+) H (Neg-Trace) mg/dL Urine Glucose (UA) Negative (Negative) mg/dL Urine Ketones Trace (Negative) mg/dL Urine Blood Negative (Negative) Urine Nitrite Negative (Negative) Ur Leukocyte Esterase Negative (Negative) Urine RBC 0-2 (0-2) /HPF Urine WBC 0-5 (0-5) /HPF Ur Squamous Epith Cells 0-2 (0-2) /HPF Urine Bacteria None Seen (None Seen) Hyaline Casts 11-20 (0-2) /LPF Urine Opiates Screen Not Detected (Not Detect) Urine Fentanyl Screen Not Detected (Not Detect) Ur Barbiturates Screen Not Detected (Not Detect) Ur Phencyclidine Scrn Not Detected (Not Detect) Ur Amphetamines Screen Not Detected (Not Detect) U Benzodiazepines Scrn Not Detected (Not Detect) Urine Cocaine Screen Not Detected (Not Detect) U Marijuana (THC) Screen POSITIVE H (Not Detect) Ethyl Alcohol mg/dL COVID-19 (JIN) Negative (Negative) COVID-19 Clin Com See Note 08/14/22 08/14/22 Range/Units 16:17 16:17 WBC 10.6 (4.8-10.8) X10*3/uL RBC 5.42 (4.60-5.80) X10*6/uL Hgb 15.5 (14.0-18.0) g/dl Hct 44.1 (42.0-52.0) % MCV 81.4 (80.0-98.0) fL MCH 28.6 (27.0-33.0) pg MCHC 35.1 (31.0-36.0) g/dl RDW 12.1 (11.0-16.0) % Plt Count 262 (160-400) X10*3/uL MPV 9.7 (9.4-12.4) fL Immature Gran % (Auto) 0.6 H (0.0-0.4) % Neut % (Auto) 72.0 (45-73) % Lymph % (Auto) 19.1 L (20-40) % [place] % (Auto) 7.7 (2-11) % Eos % (Auto) 0.4 (0-4) % Baso % (Auto) 0.2 (0-2) % Lymph # (Auto) 2.0 (1.2-4.9) X10*3/uL [place] # (Auto) 0.8 (0.1-1.2) X10*3/uL Eos # (Auto) 0.0 (0.0-0.4) X10*3/uL Baso # (Auto) 0.0 (0.0-0.2) X10*3/uL Abs Immat Gran (auto) 0.06 H (0.00-0.03) X10*3/uL Absolute Neuts (auto) 7.6 (2.0-8.3) x10*3/uL Absolute Nucleated RBC 0.000 (0.0-0.012) X10*3/uL Nucleated RBC % (auto) 0.0 (0.0-0.2) /100WBC Sodium 143 (135-145) mmol/L Potassium 3.8 (3.3-5.1) mmol/L Chloride 111 H (96-108) mmol/L Carbon Dioxide 21 L (22-29) mmol/L Anion Gap 15 (12-20) BUN 13 (9-16) mg/dL Creatinine 1.02 (0.5-1.4) mg/dL Estim Creat Clear Calc 146.3 Estimated GFR > 60 Random Glucose 115 (60-115) mg/dL Calcium 10.0 (8.4-10.2) mg/dL Total Bilirubin 0.4 (0.0-1.0) mg/dL AST 25 (5-37) U/L ALT 50 H (0-40) U/L Alkaline Phosphatase 72 (39-117) U/L Total Protein 7.4 (6.5-8.0) g/dL Albumin 4.8 (3.5-5.0) g/dL Urine Color Urine Appearance Urine pH (5.0-9.0) Ur Specific [place] (1.005-1.025) Urine Protein (Neg-Trace) mg/dL Urine Glucose (UA) (Negative) mg/dL Urine Ketones (Negative) mg/dL Urine Blood (Negative) Urine Nitrite (Negative) Ur Leukocyte Esterase (Negative) Urine RBC (0-2) /HPF Urine WBC (0-5) /HPF Ur Squamous Epith Cells (0-2) /HPF Urine Bacteria (None Seen) Hyaline Casts (0-2) /LPF Urine Opiates Screen (Not Detect) Urine Fentanyl Screen (Not Detect) Ur Barbiturates Screen (Not Detect) Ur Phencyclidine Scrn (Not Detect) Ur Amphetamines Screen (Not Detect) U Benzodiazepines Scrn (Not Detect) Urine Cocaine Screen (Not Detect) U Marijuana (THC) Screen (Not Detect) Ethyl Alcohol < 10 mg/dL COVID-19 (JIN) (Negative) COVID-19 Clin Com Core Measures AMI core measures followed: Yes Measure exclusions: not indicated Critical Care Time Critical Care Time Critical Care Time: No Discharge Plan Discharge Clinical Impression: Bipolar disorder Patient Disposition: Still a Patient Prescriptions: No Action nicotine (polacrilex) 2 mg Gum 4 mg buccal Q2H PRN (Reason: nicotine cravings) 30 Days Qty: 120 0RF nicotine 21 mg/24 hr Patch 24 Hour 21 mg transdermal DAILY PRN (Reason: smoking cessation) 28 Days Qty: 28 0RF lurasidone 40 mg tablet 40 mg PO DAILY Rx Instructions: take with food, at least 350 calories Interventions: [place]-Suicide Risk Severity Scale Last Done: 08/14/22 16:14
[2022-08-14] MEDS: LORazepam 1 MG TABLET 2 MG PO (20:05)
[2022-08-14 21:08] VITALS: BP 145/94; PULSE 83; RESP 20; TEMP 36.3; O2SAT 98
[2022-08-14] MEDS: lamoTRIgine 25 MG TABLET PO (22:37)
[2022-08-14] MEDS: Lurasidone HCl 40 MG TABLET PO (22:37)
[2022-08-14] MEDS: buPROPion HCl XL 150 MG TAB.ER.24H PO (22:37)
--- NOTE | 2022-08-15 05:47 | PC.NURSE ---
Patient slept through the night, no distress observed/reported, medication compliant, engaged well with care team, disposition PHOEBE follow up, patient will be re-evaluated by care team in the morning but patient was placed on section 12 by care team, VSS. behavior non concerning, will continue to monitor
[2022-08-15 05:56] VITALS: BP 135/86; PULSE 95; RESP 19; TEMP 36.4; O2SAT 98
[2022-08-15] MEDS: hydrOXYzine HCL 50 MG TABLET PO (09:29)
--- NOTE | 2022-08-15 17:45 | MHC.CARE ---
Referral sent to [facility] [place] [facility] and [facility], RAD Team to f/u on 08/16 to ensure referrals were received
--- NOTE | 2022-08-16 10:10 | MHC.CARE ---
CARE Team attempted to complete follow up call. Pt did not answer and VM left
== END 2022-08-15 15:11 | disposition home or self-care (01) ==
PROVIDERS: Emergency Provider Emergency Medicine; PCP Internal Medicine
DX: F31.9 Bipolar disorder, unspecified (principal); R45.851 Suicidal ideations; Z79.899 Other long term (current) drug therapy; F17.210 Nicotine dependence, cigarettes, uncomplicated; Z71.6 Tobacco abuse counseling; Z20.822 Contact with and (suspected) exposure to COVID-19; Z20.828 Contact with and (suspected) exposure to other viral communicable diseases
CPT/HCPCS: 80053; 80307; 81001; 85025; 87635; 99285; S9485

== ENCOUNTER 2024-05-25 08:01 | Emergency (ER) | payer OTHER, SELFPAY ==
[2024-05-25 08:22] VITALS: BP 143/96; PULSE 104; RESP 18; TEMP 36.9; O2SAT 97; BMI 30.8
[2024-05-25 08:45] LABS: Glucose, Whole Blood 109 mg/dL (60-115)
--- NOTE | 2024-05-25 08:51 | ED_ITS ---
HPI - General Adult General Chief complaint: General Medical Stated complaint: nausea, fatigue Time Seen by Provider: 05/25/24 08:37 Source: patient Mode of arrival: ambulatory Limitations: no limitations History of Present Illness HPI narrative: THIS IS A 29 YEARS OLD THE PATIENT WITH HISTORY OF ATTENTION DEFICIT HYPERACTIVITY DISORDER, MOOD DISORDER, ANXIETY, DEPRESSION PRESENTED TO THE EMERGENCY ROOM WITH A CHIEF COMPLAINT OF GENERALIZED WEAKNESS FATIGUE MALAISE HE IS CONCERNED THAT HE MAY HAVE DIABETES SYMPTOMS HAVE BEEN ONGOING FOR AT LEAST A MONTH. THERE IS NO FEVER Onset (ago): month(s) Radiation: non-radiation Severity: moderate Pain Consistency: constant Relieving factors: none Exacerbating factors: none Associated symptoms: denies other symptoms Related Data Home Medications ?Medication ?Instructions ?Recorded ?Confirmed bupropion HCl 150 mg 24 hr tablet, 150 mg PO BEDTIME 08/14/22 08/14/22 extended release lamotrigine 25 mg tablet 25 mg PO BEDTIME 08/14/22 08/14/22 lurasidone 40 mg tablet 40 mg PO BEDTIME 08/14/22 08/14/22 Previous Rx's ?Medication ?Instructions ?Recorded nicotine (polacrilex) 2 mg gum 4 mg buccal Q2H PRN nicotine 05/23/22 cravings 30 days #120 ea nicotine 21 mg/24 hr daily 21 mg transdermal DAILY PRN 05/23/22 transdermal patch smoking cessation 28 days #28 ea Allergies Allergy/AdvReac Type Severity Reaction Status Date / Time citalopram [From Celexa] AdvReac suicidal Verified 05/25/24 08:28 thoughts Review of Systems 2 Constitutional: Constitutional: Reports no additional constitutional complaints Cardiovascular: Cardiovascular: Reports no additional cardiovascular complaints Genitourinary: Genitourinary: Reports no additional male genitourinary complaints [facility] Past Medical History [facility] Narrative: DEPRESSION ANXIETY MOOD DISORDER ATTENTION DEFICIT HYPERACTIVITY DISORDER Medical History Anxiety PTSD (post-traumatic stress disorder) History of kidney stones Excessive sleepiness Syncope Dizziness Social History Social History Household Members: Other Household Members Other:: Cat Gaudencio Housing: Apartment Do you presently have visiting nurse or other home services: No Unable to assess alcohol history related to: Unknown Alcohol intake: current Alcohol intake frequency: holidays/special occasions only Patient Tobacco Use Status: Current everyday Tobacco user Tobacco use type: Cigarette Cigarettes Per Day: 4 Years Smoked: 7 Smoked in Last 30 Days: No Use of substances other than those prescribed or required for medical reasons: No Substance Use Type: Marijuana Advance Directives: No Advance Directives Information Provided: No Do you have a plan to hurt others: No Plan service: No Current occupational status: employed Sexual orientation: Lesbian/Kimbrough/Homosexual Physical Exam ED Vital Signs: Vital Signs - 24 hr 05/25/24 08:22 05/25/24 10:00 Temperature 98.5 F 98.3 F Pulse Rate 104 H 68 Respiratory Rate 18 20 Blood Pressure 143/96 H 129/86 Pulse Oximetry 97 100 Oxygen Delivery Method Room Air Room Air BMI result Body Mass Index 30.8 NO ACUTE DISTRESS LOOKS WELL Const General: cooperative Orientation/consciousness: patient oriented x3 Limitations: no limitations HENMT Head: Yes normal to inspection General nose exam: Normal external nose present Mouth: Normal oral and palatal mucosa present Neck Neck: Yes normal visual inspection Chest Chest palpation & inspection: normal inspection of the chest Resp Effort & Inspection: normal respiratory effort and able to speak in complete sentences Cardio Jugular venous distension: no JVD Rate: regular rate Rhythm: regular rhythm GI Inspection: Yes normal to inspection Palpation (GI): Soft to palpation, not firm and nontender Skin General skin exam: no rashes or lesions noted and elasticity normal Lesions: no lesions Rashes: no rashes Neuro General: patient oriented x3 Course Reevaluation(s) Reevaluation #1: On re-examination patient is doing much better, labs are within normal limits vital signs stable I think he can be discharged home Time: 11:23 Medications Administered Discontinued Medications Generic Name Dose Route Start Last Admin Trade Name Freq PRN Reason Stop Dose Admin Sodium Chloride 1,000 mls @ 999 mls/hr 05/25/24 09:00 05/25/24 10:30 Ns IVCONT 05/25/24 10:00 Infused .Q1H1M SRINATH Infusion Medical Decision Making Medical Decision Making [facility] Narrative: PATIENT IS HERE WITH A CHIEF COMPLAINT OF FATIGUE MALAISE IT IS REASONABLE TO GET BLOOD WORK WE WILL ADMINISTER IV FLUIDS Differential Diagnosis Differential Diagnoses: The differential diagnosis associated with the presentation includes ANEMIA/DEHYDRATION/HYPOTHYROIDISM/ Admission/Observation Consideration of admission/observation: Escalation of care including admission/observation considered Lab Data [facility] Lab Attestation statement: I reviewed the patient's lab results. 05/25/24 08:47 05/25/24 08:47 Labs: Lab Results 05/25/24 05/25/24 05/25/24 Range/Units 08:41 08:47 08:47 WBC 8.7 (4.8-10.8) X10*3/uL RBC 5.17 (4.60-5.80) X10*6/uL Hgb 14.7 (14.0-18.0) g/dl Hct 43.2 (42.0-52.0) % MCV 83.6 (80.0-98.0) fL MCH 28.4 (27.0-33.0) pg MCHC 34.0 (31.0-36.0) g/dl RDW 13.0 (11.0-16.0) % Plt Count 229 (160-400) X10*3/uL MPV 9.1 L (9.4-12.4) fL Immature Gran % (Auto) 0.3 (0.0-0.4) % Neut % (Auto) 72.9 (45-73) % Lymph % (Auto) 20.6 (20-40) % [place] % (Auto) 5.7 (2-11) % Eos % (Auto) 0.2 (0-4) % Baso % (Auto) 0.3 (0-2) % Lymph # (Auto) 1.8 (1.2-4.9) X10*3/uL [place] # (Auto) 0.5 (0.1-1.2) X10*3/uL Eos # (Auto) 0.0 (0.0-0.4) X10*3/uL Baso # (Auto) 0.0 (0.0-0.2) X10*3/uL Abs Immat Gran (auto) 0.03 (0.00-0.03) X10*3/uL Absolute Neuts (auto) 6.3 (2.0-8.3) x10*3/uL Absolute Nucleated RBC 0.000 (0.0-0.012) X10*3/uL Nucleated RBC % (auto) 0.0 (0.0-0.2) /100WBC Sodium 140 (135-145) mmol/L Potassium 3.9 (3.3-5.1) mmol/L Chloride 109 H (96-108) mmol/L Carbon Dioxide 24 (22-29) mmol/L Anion Gap 11 L (12-20) BUN 14 (9-16) mg/dL Creatinine 0.89 (0.5-1.4) mg/dL Estim Creat Clear Calc 140.8 Estimated GFR > 60 POC Glucose 109 (60-115) mg/dL Random Glucose 107 (60-115) mg/dL Calcium 9.9 (8.4-10.2) mg/dL Magnesium 2.1 2.1 (1.6-2.6) mg/dL Total Bilirubin 0.4 (0.0-1.0) mg/dL Direct Bilirubin (0.0-0.5) mg/dL AST (5-37) U/L ALT (0-40) U/L Alkaline Phosphatase (39-117) U/L Total Protein (6.5-8.0) g/dL Albumin (3.5-5.0) g/dL TSH (0.32-4.0) uIU/mL Urine Color Urine Appearance Urine pH (5.0-9.0) Ur Specific [place] (1.005-1.025) Urine Protein (Neg-Trace) mg/dL Urine Glucose (UA) (Negative) mg/dL Urine Ketones (Negative) mg/dL Urine Blood (Negative) Urine Nitrite (Negative) Ur Leukocyte Esterase (Negative) Influenza Type A (PCR) (Negative) Influenza Type B (PCR) (Negative) RSV RNA Qual (PCR) (Negative) SARS-CoV-2 RNA (RT-PCR) (Negative) 05/25/24 05/25/24 05/25/24 Range/Units 08:47 08:47 08:47 WBC (4.8-10.8) X10*3/uL RBC (4.60-5.80) X10*6/uL Hgb (14.0-18.0) g/dl Hct (42.0-52.0) % MCV (80.0-98.0) fL MCH (27.0-33.0) pg MCHC (31.0-36.0) g/dl RDW (11.0-16.0) % Plt Count (160-400) X10*3/uL MPV (9.4-12.4) fL Immature Gran % (Auto) (0.0-0.4) % Neut % (Auto) (45-73) % Lymph % (Auto) (20-40) % [place] % (Auto) (2-11) % Eos % (Auto) (0-4) % Baso % (Auto) (0-2) % Lymph # (Auto) (1.2-4.9) X10*3/uL [place] # (Auto) (0.1-1.2) X10*3/uL Eos # (Auto) (0.0-0.4) X10*3/uL Baso # (Auto) (0.0-0.2) X10*3/uL Abs Immat Gran (auto) (0.00-0.03) X10*3/uL Absolute Neuts (auto) (2.0-8.3) x10*3/uL Absolute Nucleated RBC (0.0-0.012) X10*3/uL Nucleated RBC % (auto) (0.0-0.2) /100WBC Sodium (135-145) mmol/L Potassium (3.3-5.1) mmol/L Chloride (96-108) mmol/L Carbon Dioxide (22-29) mmol/L Anion Gap (12-20) BUN (9-16) mg/dL Creatinine (0.5-1.4) mg/dL Estim Creat Clear Calc Estimated GFR POC Glucose (60-115) mg/dL Random Glucose (60-115) mg/dL Calcium (8.4-10.2) mg/dL Magnesium (1.6-2.6) mg/dL Total Bilirubin 0.4 (0.0-1.0) mg/dL Direct Bilirubin 0.2 (0.0-0.5) mg/dL AST 22 22 (5-37) U/L ALT 22 22 (0-40) U/L Alkaline Phosphatase 55 (39-117) U/L Total Protein (6.5-8.0) g/dL Albumin (3.5-5.0) g/dL TSH (0.32-4.0) uIU/mL Urine Color Urine Appearance Urine pH (5.0-9.0) Ur Specific [place] (1.005-1.025) Urine Protein (Neg-Trace) mg/dL Urine Glucose (UA) (Negative) mg/dL Urine Ketones (Negative) mg/dL Urine Blood (Negative) Urine Nitrite (Negative) Ur Leukocyte Esterase (Negative) Influenza Type A (PCR) (Negative) Influenza Type B (PCR) (Negative) RSV RNA Qual (PCR) (Negative) SARS-CoV-2 RNA (RT-PCR) (Negative) 05/25/24 05/25/24 05/25/24 Range/Units 08:47 08:47 08:47 WBC (4.8-10.8) X10*3/uL RBC (4.60-5.80) X10*6/uL Hgb (14.0-18.0) g/dl Hct (42.0-52.0) % MCV (80.0-98.0) fL MCH (27.0-33.0) pg MCHC (31.0-36.0) g/dl RDW (11.0-16.0) % Plt Count (160-400) X10*3/uL MPV (9.4-12.4) fL Immature Gran % (Auto) (0.0-0.4) % Neut % (Auto) (45-73) % Lymph % (Auto) (20-40) % [place] % (Auto) (2-11) % Eos % (Auto) (0-4) % Baso % (Auto) (0-2) % Lymph # (Auto) (1.2-4.9) X10*3/uL [place] # (Auto) (0.1-1.2) X10*3/uL Eos # (Auto) (0.0-0.4) X10*3/uL Baso # (Auto) (0.0-0.2) X10*3/uL Abs Immat Gran (auto) (0.00-0.03) X10*3/uL Absolute Neuts (auto) (2.0-8.3) x10*3/uL Absolute Nucleated RBC (0.0-0.012) X10*3/uL Nucleated RBC % (auto) (0.0-0.2) /100WBC Sodium (135-145) mmol/L Potassium (3.3-5.1) mmol/L Chloride (96-108) mmol/L Carbon Dioxide (22-29) mmol/L Anion Gap (12-20) BUN (9-16) mg/dL Creatinine (0.5-1.4) mg/dL Estim Creat Clear Calc Estimated GFR POC Glucose (60-115) mg/dL Random Glucose (60-115) mg/dL Calcium (8.4-10.2) mg/dL Magnesium (1.6-2.6) mg/dL Total Bilirubin (0.0-1.0) mg/dL Direct Bilirubin (0.0-0.5) mg/dL AST (5-37) U/L ALT (0-40) U/L Alkaline Phosphatase 55 (39-117) U/L Total Protein 7.9 7.6 (6.5-8.0) g/dL Albumin 4.7 4.7 (3.5-5.0) g/dL TSH 0.83 (0.32-4.0) uIU/mL Urine Color Urine Appearance Urine pH (5.0-9.0) Ur Specific [place] (1.005-1.025) Urine Protein (Neg-Trace) mg/dL Urine Glucose (UA) (Negative) mg/dL Urine Ketones (Negative) mg/dL Urine Blood (Negative) Urine Nitrite (Negative) Ur Leukocyte Esterase (Negative) Influenza Type A (PCR) (Negative) Influenza Type B (PCR) (Negative) RSV RNA Qual (PCR) (Negative) SARS-CoV-2 RNA (RT-PCR) (Negative) 05/25/24 05/25/24 Range/Units 08:47 09:10 WBC (4.8-10.8) X10*3/uL RBC (4.60-5.80) X10*6/uL Hgb (14.0-18.0) g/dl Hct (42.0-52.0) % MCV (80.0-98.0) fL MCH (27.0-33.0) pg MCHC (31.0-36.0) g/dl RDW (11.0-16.0) % Plt Count (160-400) X10*3/uL MPV (9.4-12.4) fL Immature Gran % (Auto) (0.0-0.4) % Neut % (Auto) (45-73) % Lymph % (Auto) (20-40) % [place] % (Auto) (2-11) % Eos % (Auto) (0-4) % Baso % (Auto) (0-2) % Lymph # (Auto) (1.2-4.9) X10*3/uL [place] # (Auto) (0.1-1.2) X10*3/uL Eos # (Auto) (0.0-0.4) X10*3/uL Baso # (Auto) (0.0-0.2) X10*3/uL Abs Immat Gran (auto) (0.00-0.03) X10*3/uL Absolute Neuts (auto) (2.0-8.3) x10*3/uL Absolute Nucleated RBC (0.0-0.012) X10*3/uL Nucleated RBC % (auto) (0.0-0.2) /100WBC Sodium (135-145) mmol/L Potassium (3.3-5.1) mmol/L Chloride (96-108) mmol/L Carbon Dioxide (22-29) mmol/L Anion Gap (12-20) BUN (9-16) mg/dL Creatinine (0.5-1.4) mg/dL Estim Creat Clear Calc Estimated GFR POC Glucose (60-115) mg/dL Random Glucose (60-115) mg/dL Calcium (8.4-10.2) mg/dL Magnesium (1.6-2.6) mg/dL Total Bilirubin (0.0-1.0) mg/dL Direct Bilirubin (0.0-0.5) mg/dL AST (5-37) U/L ALT (0-40) U/L Alkaline Phosphatase (39-117) U/L Total Protein (6.5-8.0) g/dL Albumin (3.5-5.0) g/dL TSH 0.84 (0.32-4.0) uIU/mL Urine Color Yellow Urine Appearance Clear Urine pH 6.5 (5.0-9.0) Ur Specific [place] 1.015 (1.005-1.025) Urine Protein Negative (Neg-Trace) mg/dL Urine Glucose (UA) Negative (Negative) mg/dL Urine Ketones Negative (Negative) mg/dL Urine Blood Negative (Negative) Urine Nitrite Negative (Negative) Ur Leukocyte Esterase Negative (Negative) Influenza Type A (PCR) NEGATIVE (Negative) Influenza Type B (PCR) NEGATIVE (Negative) RSV RNA Qual (PCR) NEGATIVE (Negative) SARS-CoV-2 RNA (RT-PCR) NEGATIVE (Negative) Discharge Plan Discharge Clinical Impression: Weakness, Anxiety Patient Disposition: Home, Self-Care Additional Instructions: Follow-up with your primary care physician return to emergency room if you worse any concern Prescriptions: No Action nicotine (polacrilex) 2 mg Gum 4 mg buccal Q2H PRN (Reason: nicotine cravings) 30 Days Qty: 120 0RF nicotine 21 mg/24 hr Patch 24 Hour 21 mg transdermal DAILY PRN (Reason: smoking cessation) 28 Days Qty: 28 0RF lurasidone 40 mg tablet 40 mg PO BEDTIME Rx Instructions: take with food, at least 350 calories lamotrigine 25 mg tablet 25 mg PO BEDTIME bupropion HCl 150 mg tablet extended release 24 hr 150 mg PO BEDTIME Referrals: Uma Jamison MD [Primary Care Provider] - 2 days Stand Alone Forms: Work/School Release Print Language: Greenlandic
--- NOTE | 2024-05-25 08:52 | PC.NURSE ---
a&ox4. vss and up to date. nsr on the nut sheller. pt presents to the ED w/ multiple concerns including excessive fatigue x last may that has been interfering w/ the pt's ADLs. pt reports near syncopal episodes but has not actually passed out. pt also concerned for diagnosis of DM as he reports his father possibly had it. pt reports polyuria/polydipsia. POC obtained displaying 109mg/dL. pt also reports nonintentional weight loss of 100 lbs over the past 4-6 months. denies pain. 20gIV placed in the left AC - labs obtained/sent to lab. pt currently resting in no apparent distress. no sob/wob noted. respirations even/unlabored. plan of care ongoing. call [facility] placed within reach.
[2024-05-25 09:00] LABS: MANUAL DIFF FLAG NO
[2024-05-25 09:02] LABS: Basophils Percent Auto 0.3 % (0-2); Eosinophils Percent Auto 0.2 % (0-4); Hematocrit 43.2 % (42.0-52.0); Hemoglobin 14.7 g/dl (14.0-18.0); Imm Gran Abs Auto 0.03 X10*3/uL (0.00-0.03); Imm Gran Pct Auto 0.3 % (0.0-0.4); Lymphocytes Absolute Auto 1.8 X10*3/uL (1.2-4.9); Lymphocytes Percent Auto 20.6 % (20-40); Mean Corpuscular Hemoglobin 28.4 pg (27.0-33.0); Mean Corpuscular Volume 83.6 fL (80.0-98.0); Mean Platelet Volume 9.1 fL (9.4-12.4); Monocytes Absolute Auto 0.5 X10*3/uL (0.1-1.2); Monocytes Percent Auto 5.7 % (2-11); Neutrophils Absolute Auto 6.3 x10*3/uL (2.0-8.3); Neutrophils Percent Auto 72.9 % (45-73); Platelet Count 229 X10*3/uL (160-400); Red Blood Count 5.17 X10*6/uL (4.60-5.80); White Blood Count 8.7 X10*3/uL (4.8-10.8)
[2024-05-25 09:19] LABS: Appearance Urine Clear; Color Urine Yellow; Glucose Urine UA Negative (Negative); Leukocyte Esterase Urine Negative (Negative); Nitrite Urine Negative (Negative); PH 6.5 (5.0-9.0); Specific Gravity - Urine 1.015 (1.005-1.025); Urine Blood Negative (Negative); Urine Ketones Negative (Negative); Urine Protein Negative (Neg-Trace)
[2024-05-25 09:29] LABS: Alanine Aminotransferase 22 U/L (0-40); Albumin Level 4.7 g/dL (3.5-5.0); Alkaline Phosphatase 55 U/L (39-117); Aspartate Amino Transferase 22 U/L (5-37); Bilirubin Direct 0.2 mg/dL (0.0-0.5); Bilirubin Total 0.4 mg/dL (0.0-1.0); Magnesium 2.1 mg/dL (1.6-2.6); Total Protein 7.6 g/dL (6.5-8.0)
[2024-05-25] MEDS: 0.9 % Sodium Chloride 1,000 ML 999 ML IVCONT (09:29)
[2024-05-25 09:30] LABS: Alanine Aminotransferase 22 U/L (0-40); Albumin Level 4.7 g/dL (3.5-5.0); Alkaline Phosphatase 55 U/L (39-117); Anion Gap 11 (12-20); Aspartate Amino Transferase 22 U/L (5-37); Bilirubin Total 0.4 mg/dL (0.0-1.0); Blood Urea Nitrogen 14 mg/dL (9-16); Calcium 9.9 mg/dL (8.4-10.2); Carbon Dioxide 24 mmol/L (22-29); Chloride 109 mmol/L (96-108); Creatinine Clr Calc Pharmacy 140.8; Estimated Glomerular Filt Rate > 60; Glucose Random 107 mg/dL (60-115); Magnesium 2.1 mg/dL (1.6-2.6); Potassium 3.9 mmol/L (3.3-5.1); Sodium 140 mmol/L (135-145); Total Protein 7.9 g/dL (6.5-8.0)
--- NOTE | 2024-05-25 09:33 | PC.NURSE ---
IVF administered per provider order.
--- NOTE | 2024-05-25 09:44 | PC.NURSE ---
IVF administered per provider order.
[2024-05-25 09:47] LABS: Thyroid Stimulating Hormone 0.84 uIU/mL (0.32-4.0)
[2024-05-25 09:48] LABS: Thyroid Stimulating Hormone 0.83 uIU/mL (0.32-4.0)
[2024-05-25 09:59] LABS: Influenza A PCR NEGATIVE (Negative); Influenza B PCR NEGATIVE (Negative); Resp Syncy Virus RNA Qual PCR NEGATIVE (Negative); SARS COV2 PCR INHOUSE NEGATIVE (Negative)
[2024-05-25 10:00] VITALS: BP 129/86; PULSE 68; RESP 20; TEMP 36.8; O2SAT 100
[2024-05-25 11:42] VITALS: BP 125/71; PULSE 62; RESP 16; O2SAT 99
[2024-05-25 12:16] VITALS: BP 125/71; PULSE 62; RESP 16; TEMP 36.3; O2SAT 99
== END 2024-05-25 12:16 | disposition home or self-care (01) ==
PROVIDERS: Emergency Provider Emergency Medicine; PCP Internal Medicine
DX: F41.1 Generalized anxiety disorder (principal); F43.0 Acute stress reaction; R11.2 Nausea with vomiting, unspecified; F33.1 Major depressive disorder, recurrent, moderate; Z03.818 Encounter for observation for suspected exposure to other biological agents ruled out; Z79.899 Other long term (current) drug therapy
CPT/HCPCS: 0241U; 36415; 80053; 80076; 81003; 82248; 82947; 83735; 84443; 85025; 96360; 99284; 99285

== ENCOUNTER → 2024-09-16 08:37 | Outpatient (BNV) | payer OTHER, SELFPAY | PROVIDERS: Visit Provider Psychiatry & Neurology Psychiatry | DX: F31.30 Bipolar disorder, current episode depressed, mild or moderate severity, unspecified (principal); F43.10 Post-traumatic stress disorder, unspecified; F41.1 Generalized anxiety disorder; F90.2 Attention-deficit hyperactivity disorder, combined type | CPT/HCPCS: 90792 ==

== ENCOUNTER 2024-09-28 08:20 | Outpatient (REF) | payer OTHER, SELFPAY ==
--- OUTSIDE RECORDS SUMMARY | 2024-09-28 08:24 | XMS_ITS | Clinical Summary ---
Author Organization [address] Address [address] [place] [id number] Phone Care Team Providers Care Nitrating Acid Mixer Name Role Phone Uma Jamison MD Primary Care Provider [phone] Allergies Active Allergy Reactions Criticality Noted Date Comments Penicillins 06/28/2016 Medications buPROPion XL (WELLBUTRIN XL) 150 mg 24 hr tablet Take 1 tablet (150 mg total) by mouth 1 (one) time each day. Do not crush, chew, or split. Active lurasidone (LATUDA) 40 mg tablet Take 1 tablet (40 mg total) by mouth 1 (one) time each day with breakfast. Active ALPRAZolam (XANAX) 1 mg tablet Take 1 tablet (1 mg total) by mouth. Per patient-no scrip history and patient unable to tell who prescribed Active hydrOXYzine HCL (ATARAX) 25 mg tablet Take 1 tablet (25 mg total) by mouth at bedtime as needed for itching. 30 tablet 5 Active Active Problems Problem Noted Date Diagnosed Date Anxiety 04/03/2020 Marijuana use 07/27/2018 Epididymal cyst 07/27/2018 Depression 06/28/2016 Overweight 06/28/2016 Immunizations Name Administration Dates Next Due Influenza Quadravalent, MDCK , 0.5ml, with preservative (Flucelvax) 6mo and older 01/16/2018 Tdap Tetanus diptheria acell ular pertussis (Boostrix; Adacel) 7yo and older 06/28/2016 Family History Medical History Relation Name Comments Bladder Cancer Aunt Bladder Cancer Father 62 bladder Prostate cancer Maternal Grandfather Breast cancer Mother 45 Relation Name Status Comments Aunt Brother Alive Father bladder- 6 2- smoker Maternal Grandfather Mother breast cancer- 30's- 45 Sister Alive Social History Tobacco Use Types Packs/Day Years Used Date Smoking Tobacco: Some Days Smokeless Tobacco: Current Tobacco Cessation:Ready to Q uit: Not Asked; Counseling Given: Not Answered Alcohol Use Standard Drinks/Week Comments Yes 0 (1 standard drink = 0.6 oz pur e alcohol) Sex and Gender Information Value Date Recorded Sex Assigned at Not on file Legal Sex Male 4:21 PM EST Gender Identity Not on file Sexual Orientation Not on file Obstetrics History Last Filed Vital Signs Vital Sign Reading Time Taken Comments Blood Pressure 122/82 05/26/2024 3:30 PM EST Pulse 80 05/26/2024 3:30 PM EST Temperature 36 C (96.8 F) 05/26/2024 3:30 PM EST Respiratory Rate 20 05/26/2024 3:30 PM EST Oxygen Saturation - - Inhaled Oxygen Concentration - - Weight 98.9 kg (218 lb) 05/26/2024 3:30 PM EST Height 177.8 cm (5' 10 ) 05/26/2024 3:30 PM EST Body Mass Index 31.28 05/26/2024 3:30 PM EST Plan of Treatment Health Maintenance Due Date Last Done Comments Hepatitis B Vaccines (1 of 3 - 19+ 3-dose series) 02/13/2012 Pneumococcal Vaccine: Pediatrics (0 to 5 Years) and At-Risk Patients (6 to 64 Years) (1 of 2 - PCV) 02/13/2012 Depression Screening 02/27/2022 Social Influencers of Health Screening 02/27/2022 Cholesterol Screening (Lipid Panel) 03/05/2022 03/05/2017 COVID-19 Vaccine (4 - 2023-2 5 season) 2023 04/03/2021, 06/19/2020, 05/29/2020 Influenza Vaccine (#1) 2024 8, 01/10/2015 DTaP,Tdap,and Td Vaccines (3 - Td or Tdap) 06/28/2026 06/28/2016, 01/10/2015 HIV Screening Completed 03/05/2017 Hepatitis C Screening Completed 03/05/2017 HIB Vaccines Aged Out No longer eligi ble based on patient's age to complete this topic HPV Vaccines Aged Out No longer eligi ble based on patient's age to complete this topic Hepatitis A Vaccines Aged Out No long er eligible based on patient's age to complete this topic IPV Vaccines Aged Out No longer eligi ble based on patient's age to complete this topic MMR Vaccines Aged Out No longer eligi ble based on patient's age to complete this topic Meningococcal ACWY Vaccine Aged Out N o longer eligible based on patient's age to complete this topic Meningococcal B Vaccine Aged Out No l onger eligible based on patient's age to complete this topic RSV Immunization Patients Under 20 months Aged Out No longer eligible b ased on patient's age to complete this topic Varicella Vaccines Aged Out No longer eligible based on patient's age to complete this topic Procedures Procedure Name Priority Date/Time Associated Diagnosis Comments HEPATITIS C SCREENING Routine 03/05/2017 HIV SCREENING Routine 03/05/2017 LIPID PANEL Routine 03/05/2017 from Last 3 Months or Most Recently Relevant to Health Maintenance Results * HIV Screening (03/05/2017) Pathologist [facility] HIV Screening abstracted Historical Provider HEALTH MAINTENANCE Final Result * Hepatitis C Screening (03/05/2017) Pathologist [facility] Hepatitis C Screening abstracted [facility] Provider HEALTH MAINTENANCE Final Result * (ABNORMAL) Lipid panel (03/05/2017) Pathologist [facility] LDL/HDL Ratio 3 0 - 4 Triglycerides 81 0 - 150 mg/dL Cholesterol 189 0 - 200 mg/dL HDL 55 >=40 mg/dL LDL Cholesterol 118(A) 0 - 100 mg/dL Blood Venous blood specimen / Unknown Historical Provider LAB BLOOD ORDERABLES Romi l Result from Last 3 Months or Most Recently Relevant to Health Maintenance Insurance [facility] Care Teams Nitrating Acid Mixer Relationship Specialty Start Date End Date Uma Jamison MD [address] [place] [address] PCP - General Internal Medicine 05/29/16
--- NOTE | 2024-09-28 08:25 | ECG_ITS ---
Test Reason : R/O QTC PROLONGATION Blood Pressure : */* mmHG Vent. Rate : 115 BPM Atrial Rate : 115 BPM P-R Int : 130 ms QRS Dur : 86 ms QT Int : 310 ms P-R-T Axes : 66 68 60 degrees QTcB Int : 428 ms Sinus tachycardia Nonspecific T wave abnormality Abnormal ECG When compared with ECG of 24-Jun-2022 08:46, No significant change was found Referred By: Taylor Judge Electronically Signed By: AMMY VALDEZ MD
[2024-09-28 08:35] LABS: MANUAL DIFF FLAG NO
[2024-09-28 08:59] LABS: Hematocrit 43.6 % (42.0-52.0); Hemoglobin 15.1 g/dl (14.0-18.0); Imm Gran Abs Auto 0.04 X10*3/uL (0.00-0.03); Imm Gran Pct Auto 0.5 % (0.0-0.4); Lymphocytes Absolute Auto 2.7 X10*3/uL (1.2-4.9); Mean Corpuscular HGB Conc 34.6 g/dl (31.0-36.0); Mean Corpuscular Hemoglobin 28.9 pg (27.0-33.0); Mean Corpuscular Volume 83.5 fL (80.0-98.0); NRBC Abs Auto 0.000 X10*3/uL (0.0-0.012); NRBC Pct Auto 0.0 /100WBC (0.0-0.2); Platelet Count 258 X10*3/uL (160-400); Red Blood Count 5.22 X10*6/uL (4.60-5.80); White Blood Count 8.2 X10*3/uL (4.8-10.8)
[2024-09-28 09:10] LABS: Hemoglobin A1C 137.3972 umol/L; Total Hemoglobin (HGBA1C) 4041.7307 umol/L
[2024-09-28 09:45] LABS: Alanine Aminotransferase 70 U/L (0-40); Albumin Level 5.1 g/dL (3.5-5.0); Alkaline Phosphatase 67 U/L (39-117); Anion Gap 12 (12-20); Aspartate Amino Transferase 34 U/L (5-37); Blood Urea Nitrogen 19 mg/dL (9-16); Calcium 9.8 mg/dL (8.4-10.2); Carbon Dioxide 24 mmol/L (22-29); Chloride 110 mmol/L (96-108); Cholesterol 182 mg/dL (<200); Estimated Glomerular Filt Rate > 60; HDL Cholesterol 51 mg/dL (>40); Iron 83 mcg/dL (45-160); Magnesium 2.1 mg/dL (1.6-2.6); Percent Iron Saturation 29 % (15-50); Potassium 4.2 mmol/L (3.3-5.1); Sodium 142 mmol/L (135-145); Total Iron Binding Capacity 289 mcg/dL (228-428); Total Protein 7.5 g/dL (6.5-8.0); Triglycerides 216 mg/dL (<150); Unsaturated Iron Binding 206 ug/dL
[2024-09-28 10:03] LABS: Folate 6.0 ng/mL (> or = 4.0); Vitamin B12 701 pg/mL (200-900)
[2024-09-28 10:05] LABS: Free T4 (Free Thyroxine) 0.96 ng/dL (0.71-1.85); Thyroid Stimulating Hormone 0.98 uIU/mL (0.32-4.0)
== END 2024-09-28 08:21 | disposition home or self-care (01) ==
LOC: HO.LAB 08:20
PROVIDERS: PCP Internal Medicine; Visit Provider Psychiatry & Neurology Psychiatry
DX: F31.81 Bipolar II disorder (principal); R94.31 Abnormal electrocardiogram [ECG] [EKG]
CPT/HCPCS: 36415; 80053; 80061; 82306; 82550; 82607; 82746; 83036; 83090; 83540; 83735; 84425; 84439; 84443; 85025; 93005

== ENCOUNTER → 2024-09-28 08:25 | Outpatient (BNV) | payer OTHER, SELFPAY | PROVIDERS: PCP Internal Medicine; Visit Provider Internal Medicine Cardiovascular Disease | DX: R00.0 Tachycardia, unspecified (principal) | CPT/HCPCS: 93010 ==

== ENCOUNTER → 2024-10-15 11:21 | Outpatient (REF) | payer OTHER, SELFPAY ==
--- NOTE | 2024-10-15 11:25 | ECG_ITS ---
Test Reason : ROUTINE EKG Blood Pressure : */* mmHG Vent. Rate : 74 BPM Atrial Rate : 74 BPM P-R Int : 136 ms QRS Dur : 90 ms QT Int : 372 ms P-R-T Axes : 35 61 55 degrees QTcB Int : 412 ms Normal sinus rhythm Normal ECG When compared with ECG of 28-Sep-2024 08:39, Vent. rate has decreased by 41 bpm Nonspecific T wave abnormality no longer evident in Lateral leads Referred By: Taylor Judge Electronically Signed By: LULA WYNNE
--- OUTSIDE RECORDS SUMMARY | 2024-10-15 11:48 | XMS_ITS | Clinical Summary ---
Author Organization [address] Address [address] [place] [id number] Phone Care Team Providers Care Supervisor Cereal Name Role Phone Uma Jamison MD Primary Care Provider [phone] Allergies Active Allergy Reactions Criticality Noted Date [...] 5 Years) and At-Risk Patients (6 to 49 Years) (1 of 2 - PCV) 02/13/2012 [...] Maintenance Results * HIV Screening (03/05/2017) Pathologist [facility] HIV Screening abstracted Historical Provider HEALTH MAINTENANCE Final Result * Hepatitis C Screening (03/05/2017) Pathologist [facility] Hepatitis C Screening abstracted [facility] Provider HEALTH MAINTENANCE Final Result * (ABNORMAL) Lipid panel (03/05/2017) Pathologist [facility] LDL/HDL Ratio 3 0 - 4 Triglycerides 81 0 - 150 mg/dL Cholesterol 189 0 - 200 mg/dL HDL 55 >=40 mg/dL LDL Cholesterol 118(A) 0 - 100 mg/dL Blood Venous blood specimen / Unknown Historical Provider LAB BLOOD ORDERABLES Romi l Result from Last 3 Months or Most Recently Relevant to Health Maintenance Insurance [facility] Care Teams Supervisor Cereal Relationship Specialty Start Date End Date Uma Jamison MD [address] [place] [address] PCP - General Internal Medicine 05/29/16
== END ==
LOC: HO.CARD 11:21
PROVIDERS: PCP Internal Medicine; Visit Provider Psychiatry & Neurology Psychiatry
DX: F31.30 Bipolar disorder, current episode depressed, mild or moderate severity, unspecified (principal); I47.10 Supraventricular tachycardia, unspecified
CPT/HCPCS: 93005

== ENCOUNTER → 2024-10-15 11:25 | Outpatient (BNV) | payer OTHER, SELFPAY | PROVIDERS: PCP Internal Medicine; Visit Provider Internal Medicine | DX: Z13.6 Encounter for screening for cardiovascular disorders (principal) | CPT/HCPCS: 93010 ==

== ENCOUNTER 2024-10-25 08:45 | Outpatient (RCR) | payer OTHER, SELFPAY ==
[2024-09-17 10:45] VITALS: BP 142/82; PULSE 78; RESP 16; TEMP 36.8; BMI 30.8
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
--- NOTE | 2024-09-20 13:47 | HO.PHP ---
PHP staff member met with Estrada to review the 7 risk assessment questions since he had missed that group out of confusion (met during group 4). Etsrada mentioned this morning he was feeling anxious, all over the place, and had difficulties concentrating. Estrada stated that he is currently feeling the same. Estrada feels as though he partially met his goal,in which he was having a hard time being present but does feel as though he participated more than on Friday. Estrada identified his coping skills to be talking to friends, breathing, positive thinking, and letting thoughts go as they come. Estrada reported no concerns around SI, plan or intent. After program, Estrada is going to play video games, be more social, and organize. Estrada has therapeutic supports in place for discharge.
--- NOTE | 2024-09-21 09:26 | PC.NURSE ---
Estrada stated that he stopped all medications August 29, 2024. He stated they were not working. He reports the clinic did not restart olanzapine, Latuda, and Buproprion. Dr. Judge is aware.
--- NOTE | 2024-09-21 15:02 | HO.PHP ---
[facility] staff member met with Estrada due to him stating that he was struggling with SI and a plan no intent. Estrada disclosed that he does not have any plans currently and he was referring to over his life time he has had plans. Estrada also expressed that it is triggering to talk about those plans as well because he does not want those intrusive thoughts to occur and knows that is all they are. Estrada expressed that he has the will to live. Estrada noted that his protective factors are his sister, aunt, and his cats. Estrada reported that when he starts to experience an increase in thoughts he will direct those thoughts else where by reaching out to his supports. [facility] staff member explored if thoughts do develop into a plan or intent is he comfortable with reaching out to crisis. Estrada disclosed that he would and stated that he admitted himself last time thoughts became to challenging to handle. Estrada does not feel he is in that head space at this time and noted that he will be safe. Estrada voiced that he will be in attendance to program tomorrow.
--- NOTE | 2024-09-23 13:02 | PC.NURSE ---
Estrada called [facility] to have them fill his prescriptions for Auv
--- NOTE | 2024-09-23 13:04 | PC.NURSE ---
Estrada called [facility] where he gets his medications filled and asked if they could fill Auvelity which needs a PA and Seroquel. He stated he ran out 09/22/24.
--- NOTE | 2024-09-23 15:47 | HO.PHP ---
Client's case has been opened and reviewed in team.
--- NOTE | 2024-09-24 11:22 | HO.PHP ---
[facility] staff member met with Estrada due to him struggling with a panic attack. Estrada was apologetic for his response and reaction within the group setting. PHP staff member informed Estrada that he does not have to apologize for being triggered. PHP staff member expressed that if he does feel triggered in the group setting and it is bringing up a lot of emotions, PHP staff member encouraged him to step out to grab a clinician who is available so he can process those emotions. Estrada was in agreement. Estrada shared that he had therapy last night but the session was only 30 minutes long and he didn't feel it to be beneficial because he wasn't able to touch on what he would like to before it ended. PHP staff member was receptive and explored if Estrada is able to increase how many times he sees his therapist a week. Estrada mentioned that she has very limited time and she doesn't believe that his therapist will be able to. PHP staff member assessed if he has been able to touch on any of this trauma with his therapist since this appears to be very challenging for him. Estrada voiced that he hasn't been able to but did voice that he is on a wait list for the [facility]. [facility] staff member encouraged Estrada prior to doing in depth trauma work, she is suggesting that he enrolls in a DBT group because it appears as though he has a difficult time with distress tolerance. Estrada agreed that he does have a difficult time with distress tolerance and would like to learn those skills. [facility] staff member provided Estrada with psycho-education around [facility]'s DBT program. Estrada appeared receptive and took the information for when he is ready to reach out. Estrada touched on his struggles with paranoid thoughts, in which he worries that people from the program are going to follow him home. When asked him if he is able to rationalize that they have no reason to follow him home and he rebutted and stated that they do because he is loco and wears a collar. 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 Estrada was aware. Estrada noted that he would like to review his medications with the doctor and he was informed that he would be meeting with her today. PHP staff member expressed that he will be. Estrada disclosed that when he was on vyvanse, he feels his thoughts were more controlled. Estrada then expressed that he took vyvanse yesterday and it helped. [facility] staff member asked Estrada if that medication was prescribed by our doctor. Estrada said that it is not. PHP staff member suggested not to take medications that aren't prescribed to him because it could have negative interactions with his current medications. Estrada was in agreement. Estrada was able to regulate and return to the group.
--- NOTE | 2024-09-24 17:55 | P.PNPSP_ITS ---
Subjective Subjective Date of Service: 09/24/24 Reason For Visit: depression,anxiety Interim History: Patient seen for follow-up. Patient requesting to see this loan underwriter and has been expressing concerns to staff as well. ?I have been having a lot of paranoid thoughts about people attacking me, about people killing me. Sometimes I think there patient is here following me and that the police are after me... I am constantly thinking, fearing, losing . Patient had mentioned taking Vyvanse in groups today (of which he is not prescribed currently). He tells me that he had taken an old script, took a 70 mg capsule on Friday morning and again Friday. Still has 3 pills left and leslye es taking any today. I point out that when we met last Friday he had not disclosed or complained of any paranoia that I suspect the Vyvanse has exacerbated whatever underlying paranoia he may had. He says he usually feels better on the stimulant, and does have a history of ADHD, but does not notice that his paranoia is worse later in the day when the stimulant wears off. I have asked that he hold off from taking any further Vyvanse for the time being. He also has run out of Auvelity and has not heard back from his prescriber regarding the PA. Thus far he does not feel the Vraylar has been helpful and says he does not feel any different off of the Auvelity and adds that he has never had much luck with treatment on antidepressants ?none of these medications ever helped me much with depression . He has not found any of the new medication particularly helpful and feels things are just getting bad since I left respite . He has previously noted that Latuda was a good medication for hi m and was on it for some time but that this was changed because he was starting to have some breakthrough depression stills feels he is better off with a Latuda and is agreeable to transitioning back onto that medication. He has found some improvement in his sleep with Seroquel increased from 50-150 mg at night he is now sleeping about 8 hours and is one area where he has seen some improvement. He is agreeable to increasing the dose to 200 mg and instituting doses of 50 mg 2 or 3 times during the day to target paranoid thoughts. Will plan to discontinue Auvelity, instead using Latuda for the depression and a lower dose of Vyvanse for ADHD once his mood is more stable and paranoia has abated. Medication Compliance: Yes Side effects from medications: No Attending Groups: Yes Review of Systems Acute medical concerns: No Mental Status Exam Mental Status Exam Narrative: Alert, oriented, in no acute distress. Calm, cooperative. Patient continues to wears a dog collar, and initially sitting with his paws in a sitting up/begging dog pose. Has insight into overvalued ideas of being a dog (and has a community of similarly-minded friends who identify as specific animals). Less restleness today. Eye contact intermittent. Mood depressed, affect anxious, blunted without lability. Speech normal, soft, flat without slowing. Thought process linear, coherent, delay in some responses. Thought content related to stressors, +paranoid ideation, +transient hopelessness, +passive SI, denies any intention, urge or plan to harm self. Denies any aggressive ideation or HI. Paranoid ideation without other delusional content, which patient maintains insight into nature of paranoid thoughts. Insight and judgment fair but adequate. Diagnostics Vital Signs (24Hr): BMI result Body Mass Index 30.8 Assessment & Plan Assessment & Plan (1) Bipolar affect, depressed: Status: Acute Code(s): F31.30 - Bipolar disorder, current episode depressed, mild or moderate severity, unspecified (2) PTSD (post-traumatic stress disorder): Status: Acute Code(s): F43.10 - Post-traumatic stress disorder, unspecified (3) ALYSSA (generalized anxiety disorder): Status: Acute Code(s): F41.1 - Generalized anxiety disorder (4) ADHD (attention deficit hyperactivity disorder), combined type: Status: Acute Code(s): F90.2 - Attention-deficit hyperactivity disorder, combined type (5) Learning disabilities: Status: Acute Code(s): F81.9 - Developmental disorder of scholastic skills, unspecified Assessment and Plan: Hx of learning disabilities r/o ASD or PDD Plan Continue PHP discontinue Auvelity (for depression, adhd) will start back on Latuda at 20 - 40 mg qd w meals (which pt reports better trted depression) hold off any stimulant meds, will plan to start Vyvanse later next week (for ADHD), once mood is stabilized cross taper off Vraylar (onto Latuda) increase Seroquel to 200 mg qhs start Seroquel 50 mg BID-TID PRN agitation/mood/anxiety/paranoia in the interim, until Latuda therapeutic cont clonidine 0.1 mg qhs (not too helpful so far) cont hydroxyzine hcl 25 mg TID prn anxiety cont alprazolam 0.5 mg BID prn anxiety Discontinued: Auvelity 105-45 mg BID, Vraylar 3mg, Routine lab work as indicated EKG, routine for baseline QTc for medication considerations as indicated UDS as indicated Patient is noted to have a hyperpigmented spot on his lower lip (x1-2 yrs?). slightly suspicious (likely melanotic macule, ?r/o melanoma). Will see about getting PCP appt set up to f/u VS reviewed: afebrile, BP 142/82;?78 bpm Continue to monitor Patient educated on: diagnosis, medication risk/benefits and substance abuse Informed Consent: understands Reason for contiued partial hosp. stay Substantial Risk for: inability to function, rapid decompensation and med/psych decompensation Certification I certify that partial hospital treatment is medically necessary due to the symptoms and problems resulting from the patient's mental illness and the failure to treat the patient at the partial hospital level of care would likely result in the patient requiring inpatient psychiatric care which could not be prevented at a less intensive level of care. Total time managing care of this patient today __45__ minutes. Discharge Plan Discharge Attending provider: Taylor Judge Medications: New lurasidone 40 mg tablet 40 mg PO DAILY Qty: 30 0RF Rx Instructions: must administer with food (at least 350 calories) quetiapine 200 mg tablet 200 mg PO BEDTIME Qty: 30 0RF guanfacine 1 mg tablet extended release 24 hr 1 mg PO DAILY Qty: 30 0RF Continued clonidine HCl 0.1 mg tablet 0.1 - 0.2 mg PO BEDTIME PRN (Reason: anxiety/insomnia) hydroxyzine HCl 25 mg tablet 75 mg PO BEDTIME PRN (Reason: anxiety/insomnia) Auvelity 45-105 mg tablet, IR and ER, biphasic 1 tab PO BID 15 Days Qty: 30 0RF Changed quetiapine 50 mg Tablet 50 mg PO BID PRN (Reason: agitation) Qty: 60 0RF Discontinued Vraylar 3 mg capsule 3 mg PO DAILY No Action alprazolam 0.5 mg tablet 0.5 mg PO BID PRN (Reason: Anxiety) Print Language: Bengali
--- NOTE | 2024-09-28 13:43 | PC.NURSE ---
Dr. Judge is aware of patient's EKG results: Sinus tachycardia Vent rate 115, Non-specific T wave abnormality.
--- NOTE | 2024-10-05 10:10 | PC.NURSE ---
Dr. Judge is aware of patient's lab results including: Cl 110, BUN 19, FBS 112, ALt 70, Alb 5.1, Triglyceride 216, Imgran Pct Auto 0.5, ImGran Abs Auto 0.04.
[2024-10-05 11:43] VITALS: BP 130/88; PULSE 118
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
--- NOTE | 2024-10-06 14:22 | HO.PHP ---
[facility] yesterday 10/05/24 of Estrada's last covered day, Information was provided to a outbound telemarketing representative regarding a request for an extension for Estrada, insurance rep stated we will be put in the queue for a clinical review, a call back time was not provided.
--- NOTE | 2024-10-11 10:42 | HO.PHP ---
This commercial insurance underwriter met with the patient after he requested to talk with a clinician. He presented dysregulated and reported to have a very rough weekend with increasing suicidal thoughts that he described as a nickerson (one voice telling him to do it and other voice telling him not to do it). He reported to be trying to utilize skills and support to stop the intrusive thoughts and to feel better today. Manifested that he can't be alone and that's what happened during the weekend. However, he indicated to reach out to his sister and his aunt and the sister was upset with him. On the other hand, he reported the aunt told him to go to her house and he indicated that he did it but to feel like he was ignored all the time that he was there. Gennaor manifested to feel dysregulated due to financial issues but to have a meeting on 10/09/24 with a hospice case manager who is helping him with a disability application and resources to pay his bills. The Program doctor was notified about the client struggles and he met with the doctor right after finishing with this clinician.
--- NOTE | 2024-10-11 22:34 | HO.PHPPROGNO ---
Subjective Subjective Date of Service: 10/11/24 Reason For Visit: depression,anxiety Interim History: Patient returns from weekend reports having interactions with his sister and aunt were initially to help him out financially but then the following day when he went over house she appear to change her mind. Set him off on a downward s spiral. Hard to get up in the morning. I slept till 14:00 on Friday and Friday. The mental pain is anguish . He has still not received the Vyvanse 50 mg wishes pending PA approval so he did not take any Vyvanse this weekend and complains of having constant dread, racing thoughts, high levels of anxiety all weekend, and just not wanting to be alive . He is struggling with finances and cites this as his primary stressor which makes him feel hopeless, is having great difficulty with problem-solving especially off of the Vyvanse. The PA is required for 50 mg capsules, he took a Vyvanse 70 mg this morning otherwise felt he wouldnt have made it to prpogram. He still has a few capsules remaining from an earlier script. He does note feeling more together today. Conitues with SI without plan, but doing a little better today than yesterday . Medication Compliance: Yes Side effects from medications: No Attending Groups: Yes Review of Systems Acute medical concerns: No Mental Status Exam Mental Status Exam Narrative: Alert, oriented, in no acute distress. Calm, cooperative. Patient continues to wears a dog collar, and initially sitting with his paws in a sitting up/begging dog pose. Has insight into overvalued ideas of being a dog (and has a community of similarly-minded friends who identify as specific animals). Less restleness today. Eye contact intermittent. Mood depressed, affect anxious, blunted without lability. Speech normal, soft, flat without slowing. Thought process linear, coherent, delay in some responses. Thought content related to stressors, +paranoid ideation, +transient hopelessness, +passive SI, vague plan, denies any intention, urge to harm self. Denies any aggressive ideation or HI. Paranoid ideation without other delusional content, which patient maintains insight into nature of paranoid thoughts. Insight and judgment fair but adequate. Diagnostics Vital Signs (24Hr): BMI result Body Mass Index 30.8 Assessment & Plan Assessment & Plan (1) Bipolar affect, depressed: Status: Acute Code(s): F31.30 - Bipolar disorder, current episode depressed, mild or moderate severity, unspecified (2) PTSD (post-traumatic stress disorder): Status: Acute Code(s): F43.10 - Post-traumatic stress disorder, unspecified (3) ALYSSA (generalized anxiety disorder): Status: Acute Code(s): F41.1 - Generalized anxiety disorder (4) ADHD (attention deficit hyperactivity disorder), combined type: Status: Acute Code(s): F90.2 - Attention-deficit hyperactivity disorder, combined type (5) Learning disabilities: Status: Acute Code(s): F81.9 - Developmental disorder of scholastic skills, unspecified Assessment and Plan: Hx of learning disabilities r/o ASD or PDD Plan Continue PHP increase Latuda to 60 mg qd w meals pending PA approval for Vyvanse 50 mg continue Seroquel 200 mg qhs (sleeping well now) continue Seroquel at 25 mg BID-TID PRN agitation/mood/anxiety/paranoia in the interim (says is too sedating at 50 mg) continue hydroxyzine hcl 25 mg TID prn anxiety continue alprazolam 0.5 mg BID prn anxiety Discontinued: Auvelity 105-45 mg BID, Vraylar 3mg, Routine lab work as indicated EKG, routine for baseline QTc for medication considerations as indicated UDS as indicated Patient is noted to have a hyperpigmented spot on his lower lip (x1-2 yrs?). slightly suspicious (likely melanotic macule, ?r/o melanoma). Will see about getting PCP appt set up to f/u VS reviewed: afebrile, BP 142/82;?78 bpm Continue to monitor Patient educated on: diagnosis and medication risk/benefits Informed Consent: understands Reason for contiued partial hosp. stay Substantial Risk for: harm to self, inability to function and med/psych decompensation Certification I certify that partial hospital treatment is medically necessary due to the symptoms and problems resulting from the patient's mental illness and the failure to treat the patient at the partial hospital level of care would likely result in the patient requiring inpatient psychiatric care which could not be prevented at a less intensive level of care. Total time managing care of this patient today ____ minutes. Discharge Plan Discharge Attending provider: Taylor Judge Medications: New quetiapine 200 mg tablet 200 mg PO BEDTIME Qty: 30 0RF guanfacine 3 mg tablet extended release 24 hr 3 mg PO QAM Qty: 30 0RF guanfacine 1 mg tablet extended release 24 hr 1 mg PO QPM Qty: 30 0RF lisdexamfetamine 70 mg capsule 70 mg PO QAM Qty: 30 0RF Rx Instructions: Partial Fill upon patient request. lurasidone 80 mg tablet 80 mg PO QPM Qty: 30 0RF Rx Instructions: must administer with food (at least 350 calories) Continued clonidine HCl 0.1 mg tablet 0.1 - 0.2 mg PO BEDTIME PRN (Reason: anxiety/insomnia) hydroxyzine HCl 25 mg tablet 75 mg PO BEDTIME PRN (Reason: anxiety/insomnia) Changed quetiapine 50 mg Tablet 50 mg PO BID PRN (Reason: agitation) Qty: 60 0RF Discontinued Vraylar 3 mg capsule 3 mg PO DAILY Auvelity 45-105 mg tablet, IR and ER, biphasic 1 tab PO BID No Action alprazolam 0.5 mg tablet 0.5 mg PO BID PRN (Reason: Anxiety) Stand Alone Forms: Patient Portal Discharge page Print Language: Yoruba
--- NOTE | 2024-10-12 21:27 | P.PNPSP_ITS ---
Subjective Subjective Date of Service: 10/12/24 Reason For Visit: depression,anxiety Interim History: Patient seen for follow-up. Going to send patient was reporting over taking? his Xanax. He reports having taking 2 mg because he was having a panic attack and says that this helped ?a l ittle bit?. He denies taking the medication with suicidal intent although continues to endorse passive SI ?I get suicidal because I feel abandoned by everyone?. He will be meeting with his sample case porter today reportedly they are in the process of trying to get him services possibly on disability. He is anticipating receiving green assistance on the meantime he has been asking his aunt for help as he does not have enough money for gas. He spends considerable amount of time talking about a friend of his online whom he commiserates with regarding his mental health and discussed some concerning topics in attitude around suicide. Patient notes that his father when he was younger in its spent a lot of time ruminating about and morbid themes as a means of comforting himself due to being so afraid of , spent so much time in his youth looking at photos of people who suicided that he feels it gave him PTSD and was a fairly strong deterrent to ever actually taken action in harming himself even though he continues to have chronic passive SI. Mental Status Exam Mental Status Exam Narrative: Alert, oriented, in no acute distress. Calm, cooperative. Patient continues to wears a dog collar, and initially sitting with his paws in a sitting up/begging dog pose. Has insight into overvalued ideas of being a dog (and has a community of similarly-minded friends who identify as specific animals). Less restleness today. Eye contact intermittent. Mood depressed, affect anxious, blunted without lability. Speech normal, soft, flat without slowing. Thought process linear, coherent, delay in some responses. Thought content related to stressors, +paranoid ideation, +transient hopelessness, +passive SI, vague plan, denies any intention, urge to harm self. Denies any aggressive ideation or HI. Paranoid ideation without other delusional content, which patient maintains insight into nature of paranoid thoughts. Insight and judgment fair but adequate. Diagnostics Vital Signs (24Hr): BMI result Body Mass Index 30.8 Assessment & Plan Assessment & Plan (1) Bipolar affect, depressed: Status: Acute Code(s): F31.30 - Bipolar disorder, current episode depressed, mild or moderate severity, unspecified (2) PTSD (post-traumatic stress disorder): Status: Acute Code(s): F43.10 - Post-traumatic stress disorder, unspecified (3) ALYSSA (generalized anxiety disorder): Status: Acute Code(s): F41.1 - Generalized anxiety disorder (4) ADHD (attention deficit hyperactivity disorder), combined type: Status: Acute Code(s): F90.2 - Attention-deficit hyperactivity disorder, combined type (5) Learning disabilities: Status: Acute Code(s): F81.9 - Developmental disorder of scholastic skills, unspecified Assessment and Plan: Hx of learning disabilities r/o ASD or PDD Plan Extend PHP increase Latuda to 80 mg qd w meals pending PA for Vyvanse 70 mg qam continue Seroquel 200 mg qhs (sleeping well now) continue Seroquel 50 mg BID-TID PRN agitation/mood/anxiety/paranoia in the interim (encouraged to take this) continue hydroxyzine hcl 25 mg TID prn anxiety continue alprazolam 0.5 mg BID prn anxiety Discontinued: Auvelity 105-45 mg BID, Vraylar 3mg, Routine lab work as indicated EKG, routine for baseline QTc for medication considerations as indicated UDS as indicated Patient is noted to have a hyperpigmented spot on his lower lip (x1-2 yrs?). slightly suspicious (likely melanotic macule, ?r/o melanoma). Will see about getting PCP appt set up to f/u VS reviewed: afebrile, BP 142/82;?78 bpm Continue to monitor Patient educated on: diagnosis and medication risk/benefits Informed Consent: understands Reason for contiued partial hosp. stay Substantial Risk for: harm to self, inability to function and med/psych decompensation Certification I certify that partial hospital treatment is medically necessary due to the symptoms and problems resulting from the patient's mental illness and the failure to treat the patient at the partial hospital level of care would likely result in the patient requiring inpatient psychiatric care which could not be prevented at a less intensive level of care. Total time managing care of this patient today __45__ minutes. Discharge Plan Discharge Attending provider: Taylor Judge Medications: New quetiapine 200 mg tablet 200 mg PO BEDTIME Qty: 30 0RF guanfacine 3 mg tablet extended release 24 hr 3 mg PO QAM Qty: 30 0RF guanfacine 1 mg tablet extended release 24 hr 1 mg PO QPM Qty: 30 0RF lisdexamfetamine 70 mg capsule 70 mg PO QAM Qty: 30 0RF Rx Instructions: Partial Fill upon patient request. lurasidone 80 mg tablet 80 mg PO QPM Qty: 30 0RF Rx Instructions: must administer with food (at least 350 calories) Continued clonidine HCl 0.1 mg tablet 0.1 - 0.2 mg PO BEDTIME PRN (Reason: anxiety/insomnia) hydroxyzine HCl 25 mg tablet 75 mg PO BEDTIME PRN (Reason: anxiety/insomnia) Changed quetiapine 50 mg Tablet 50 mg PO BID PRN (Reason: agitation) Qty: 60 0RF Discontinued Vraylar 3 mg capsule 3 mg PO DAILY Auvelity 45-105 mg tablet, IR and ER, biphasic 1 tab PO BID No Action alprazolam 0.5 mg tablet 0.5 mg PO BID PRN (Reason: Anxiety) Stand Alone Forms: Patient Portal Discharge page Print Language: Mauritian
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
--- NOTE | 2024-10-15 16:08 | HO.PHP ---
This public relations writer reached out to [facility] [employer] ([employer]) to request an extension on Estrada's last covered day 10/15/24. Awaiting a call back.
--- NOTE | 2024-10-20 15:56 | HO.PHP ---
PHP staff member spoke to Estrada due to [facility] Admin, Madalyn, noting she is receiving calls from pt. stating that Estrada is dysregulated during the break. Estrada was breathing heavy when PHP staff member met with him. PHP staff member explored with Estrada what is occurring. Estrada expressed that he is having a really hard time. Estrada shared that he didn't want to come into program today because his paranoia has been bad within the group setting and now there are new people. Estrada expressed he has fears that people are going to attack him and that people are judging him when they look at him. Estrada also shared that is why he hasn't been coming into program because he is paranoid. PHP staff member suggested that we walk him to get further evaluated. Estrada disclosed that he doesn't feel he needs to go down to be evaluated because he is not suicidal. PHP staff member informed him that he does not need to be suicidal to be evaluated and noted that if the paranoid is impacting his daily functioning, it would be a good idea to go down. Estrada stated that he wanted to continue in the program for the remainder of the day. PHP staff member voiced that if we feel he needs an evaluation as the day goes on we will walk him down to get assessed. Estrada was in agreement.
--- NOTE | 2024-10-20 16:14 | HO.PHP ---
[facility] staff member met with Estrada after the third group due to him stating he didn't feel he met his goal today of calming down. Estrada said he does feel he has calmed down from this morning and feels he is doing better then what he was this morning. Estrada acknowledged that he did not take his antipsychotic medication last night because he fell asleep and when he woke up at 2 AM he didn't want to take the dose then because it would have made him groggy. Estrada said he feels that is what is causing some of the paranoia today. Estrada disclosed that he will be taking his medication tonight and will be in attendance to program tomorrow but he could only do a half day. [facility] staff member was receptive. Estrada noted he is safe and has no concerns for tonight.
--- NOTE | 2024-10-21 23:57 | P.PNPSP_ITS ---
Subjective Subjective Date of Service: 10/21/24 Reason For Visit: depression,anxiety Interim History: Met with patient for follow-up, still reports struggling with limited supports, especially not having many friends of people to lean on whenhe is in need of emotional support. Reports his paranoia has been bad this week. I've been afraid to leave my place . He says not a new issues, occurs usually in context of bad anxiety/stressors. He admits he has a bad habot of watching videos or playing violent video games and acknowledges this is unhelpful. Has not remember to take the PRN Seroquel but says he is worried it could be sedating but has not tried half tablet. Also has not yet moved up on the Latuda, but was reminded that he does not need to use up 60 mg tabs (we could use if we move to 120 mg) and should just move up to 80 mg tonight which he agrees to do. He is relatively calm and attentive and engaged during the encouter which he attributes to the PRN 1 mg of XAnax he took prior to PHP this morning. Denies any SI, AH, VH. HI. He is eager to transition to this technical document writer for ongoing outpatient psychiatric care. Occasional cannabis use, had used with more regularity in past, but has financial constraints presently. Medication Compliance: Yes Side effects from medications: No Attending Groups: Yes Review of Systems Acute medical concerns: No Mental Status Exam Mental Status Exam Narrative: Alert, oriented, in no acute distress. Calm, cooperative. Patient continues to wears a dog collar, and initially sitting with his paws in a sitting up/begging dog pose. Has insight into overvalued ideas of being a dog (and has a community of similarly-minded friends who identify as specific animals). Less restleness today. Eye contact intermittent. Mood depressed, affect anxious, blunted without lability. Speech normal, soft, flat without slowing. Thought process linear, coherent, delay in some responses. Thought content related to stressors, +paranoid ideation, +transient hopelessness, +passive SI, vague plan, denies any intention, urge to harm self. Denies any aggressive ideation or HI. Paranoid ideation without other delusional content, which patient maintains insight into nature of paranoid thoughts. Insight and judgment fair but roscoe quate. Diagnostics Vital Signs (24Hr): BMI result Body Mass Index 30.8 Assessment & Plan Assessment & Plan (1) Bipolar affect, depressed: Status: Acute Code(s): F31.30 - Bipolar disorder, current episode depressed, mild or moderate severity, unspecified (2) PTSD (post-traumatic stress disorder): Status: Acute Code(s): F43.10 - Post-traumatic stress disorder, unspecified (3) ALYSSA (generalized anxiety disorder): Status: Acute Code(s): F41.1 - Generalized anxiety disorder (4) Pervasive developmental disorder: Status: Acute Code(s): F84.9 - Pervasive developmental disorder, unspecified (5) ADHD (attention deficit hyperactivity disorder), combined type: Status: Acute Code(s): F90.2 - Attention-deficit hyperactivity disorder, combined type Plan continue PHP increase Latuda to 80 mg qd w meals tonight continue Vyvanse 70 mg qd (PA approved) continue Seroquel 200 mg qhs (sleeping well now) continue Seroquel at 25 mg BID-TID PRN agitation/mood/anxiety/paranoia in the interim (encouraged to take as 25 mg) continue hydroxyzine hcl 25 mg TID prn anxiety continue alprazolam 0.5 mg BID prn anxiety (patient says only takes once a day as a single 1 mg dose bc 0.5 mg ineffective) Discontinued: Auvelity 105-45 mg BID, Vraylar 3mg, Routine lab work as indicated EKG, routine for baseline QTc for medication considerations as indicated UDS as indicated Patient is noted to have a hyperpigmented spot on his lower lip (x1-2 yrs?). slightly suspicious (likely melanotic macule, ?r/o melanoma). Will see about getting PCP appt set up to f/u VS reviewed: afebrile, BP 142/82;?78 bpm Continue to monitor Patient educated on: diagnosis and medication risk/benefits Informed Consent: understands Reason for contiued partial hosp. stay Substantial Risk for: med/psych decompensation Certification I certify that partial hospital treatment is medically necessary due to the symptoms and problems resulting from the patient's mental illness and the failure to treat the patient at the partial hospital level of care would likely result in the patient requiring inpatient psychiatric care which could not be prevented at a less intensive level of care. Total time managing care of this patient today __30__ minutes. Discharge Plan Discharge Attending provider: Taylor Judge Medications: Changed hydroxyzine HCl 25 mg tablet 25 mg PO QID PRN (Reason: anxiety/insomnia) Qty: 60 0RF Discontinued clonidine HCl 0.1 mg tablet 0.1 - 0.2 mg PO BEDTIME PRN (Reason: anxiety/insomnia) alprazolam 0.5 mg tablet 0.5 mg PO BID PRN (Reason: Anxiety) quetiapine 50 mg Tablet 50 mg PO BEDTIME Vraylar 3 mg capsule 3 mg PO DAILY Auvelity 45-105 mg tablet, IR and ER, biphasic 1 tab PO BID No Action lisdexamfetamine 70 mg capsule 70 mg PO QAM Qty: 30 0RF Rx Instructions: Partial Fill upon patient request. guanfacine 4 mg tablet extended release 24 hr 4 mg PO QAM 14 Days Qty: 14 0RF quetiapine 50 mg tablet 50 mg PO BID Qty: 30 0RF alprazolam 1 mg tablet 1 mg PO TID PRN (Reason: anxiety) 14 Days Qty: 42 0RF gabapentin 300 mg capsule 300 mg PO TID Qty: 42 0RF quetiapine 200 mg tablet 200 mg PO BEDTIME 30 Days Qty: 30 0RF lurasidone 120 mg tablet 120 mg PO QPM 30 Days Qty: 30 0RF Rx Instructions: must administer with food (at least 350 calories) Stand Alone Forms: Patient Portal Discharge page Patient Education: Bipolar Disorder (DC), PTSD (Post Traumatic Stress Disorder) (ED), PTSD (Post Traumatic Stress Disorder) (DC) Print Language: Portuguese
--- NOTE | 2024-10-22 11:28 | HO.PHP ---
This scientific writer met with Estrada after concerning statements made in the process group. 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 He talks to his long distant friends about suicide. He reported he fears , but if it going to happen anyway, he wants control of it. See group progress note by Lina for more details that ensured within the group setting. This scientific writer met with Estrada to follow-up with his concerns. He reported speaking with his therapist yesterday about all that was discussed. This scientific writer inquired how long he has been seeing her which was a couple years, and per his report, she understands why he feels this way. He went on to describe that he has been coming up with short-term future oriented goals for himself such as wanting to have a partner, find work, and do new things he enjoys such as go for a hike. He stated that there was a plan with the program provider to take his antipsychotic Seroquel to help with the paranoia. He reports that it has helped. 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 He gave the example of if he were 48 or 58 and ended up with cancer or in a longterm that he has comfort in knowing there is a way out of that. He stated he has not had active suicidal thoughts since this Friday. When asked him what stops him from those thoughts, he stated knowing that he has a plan in place with his social insurance analyst for housing at his [facility] and [employer] support has helped. This scientific writer inquired what would happen if housing insecurity, loss of his car, etc were to happen, he reported it would make him more impulsive. He expressed he is not feeling this way currently, and if he did have this happen he would reach out to someone. He did this last time when the thoughts would not go away and he was alone, so he ended up in respite. Lastly, he described his obsession with stemming from his upbringing and throughout his life. In his 20's he would look up ways to that would terrify him, and he relayed this is a protective factor keeping him from acting on those thoughts stating, have you ever seen the distress from someone hanging themselves? That's a terrible way to go. He shares this with his friends because they understand, and he does not feel comfortable talking about this with his family due to their reaction. He denies SI, plan, or intent at the time of this conversation. PHP program provider was notified and plans to follow-up to further assess safety concerns.
--- NOTE | 2024-10-22 14:13 | HO.PHP ---
PHP staff member met with Dr. Judge to discuss concerns that Estrada presented while in group one that made the clinician explore with Dr. Judge if Estrada needs to be evaluated. Dr. Judge noted that Estrada has informed her of this information already and it appears to be ongoing for him. Dr. Judge expressed that she will meet with Estrada to further assess.
--- NOTE | 2024-10-22 14:47 | HO.PHP ---
This science writer met with Estrada again following his discussion with Dr. Judge the program provider. He talked about his discharge date 10/25/24, lack of structure, inability to implement things on his own, feeling stuck and frustrated. This science writer suggested coming up with resources and goals to try to obtain slowly on his own as this is a stabilization program, and he has been a patient for about a month now. He was able to provide insight to his functioning and thoughts. He was able to contract for safety. Crisis and local supports were reviewed and Estrada agreed he will reach out and ask for help in a crisis. He reported needing to go to the grocery store and he is seeing his sister and attending a family dinner tomorrow. He currently is denying SI, plans, or intent, and he stated his paranoia has decreased throughout the day.
--- NOTE | 2024-10-26 08:32 | P.PNPSP_ITS ---
Subjective Subjective Date of Service: 10/26/24 Reason For Visit: depression,anxiety Interim History: Patient seen for follow-up, anticipating discharge at the end of program today.? The depression is a lot better . He is tolerating Latuda without issue at 80 mg. Anxiety is situational due to financial situation and family stressors and limited supports and structure in commnunity (although does actively utilize the supports he does have. Meets regularly with disease case manager and others). Reports no acute issues or concerns. Medication compliant, medications well- tolerated. Denies any adverse effects.? Mood is improving, anxiety persists but managing with PRN XAnax and takes this as directed without issues.?Denies any cannabis use in interim. No alcohol or illicit substance use. Denies any hopelessness or SI. Denies thoughts of harming self or others at this time. Denies any aggressive ideation or HI. Denies any paranoia or AH or VH. Sleep is improved, appetite, energy okay . Alert, oriented, in no acute distress. Calm, cooperative. Mood stable, affect appropriate. Speech normal. Thought process linear, coherent, more goal- directed. Thought content related to stressors, future-oriented, denies any helplessness, hopelessness or SI.? No aggressive ideation or HI. No paranoia or delusional content elicited. No evidence of psychosis. Insight and judgment fair-good. Medication Compliance: Yes Side effects from medications: No Attending Groups: Yes Review of Systems Acute medical concerns: No Mental Status Exam Mental Status Exam Narrative: Alert, oriented, in no acute distress. Calm, cooperative. Casually dressed. Hygiene intact. wearing dog collar. Eye contact intermittent. Mood anxious, stable, affect variable, brightens at moments, anxious, mood congruent. Speech normal. Thought process linear, coherent. Thought content related to stressors, denies any hopelessness or SI. Denies any aggressive ideation or HI. No paranoia or delusional content elicited. No evidence of psychosis. Insight and judgment - fair but adequate. Diagnostics Vital Signs (24Hr): BMI result Body Mass Index 30.8 Assessment & Plan Assessment & Plan (1) Bipolar affect, depressed: Status: Acute Code(s): F31.30 - Bipolar disorder, current episode depressed, mild or moderate severity, unspecified (2) PTSD (post-traumatic stress disorder): Status: Acute Code(s): F43.10 - Post-traumatic stress disorder, unspecified (3) ALYSSA (generalized anxiety disorder): Status: Acute Code(s): F41.1 - Generalized anxiety disorder (4) ADHD (attention deficit hyperactivity disorder), combined type: Status: Acute Code(s): F90.2 - Attention-deficit hyperactivity disorder, combined type (5) Pervasive developmental disorder: Status: Acute Code(s): F84.9 - Pervasive developmental disorder, unspecified Plan Discharge PHP Patient anticipates returning for IOP, for ongoing support and more intensive therapeutic work titrate Latuda to 120 mg qd w meals continue Vyvanse 70 mg qd ([place] approved) continue Seroquel 200 mg qhs (sleeping well now) continue Seroquel at 25 mg BID-TID PRN agitation/mood/anxiety/paranoia in the interim (says is too sedating at 50 mg) continue hydroxyzine hcl 25 mg TID prn anxiety continue alprazolam 0.5 mg BID prn anxiety Discontinued: Auvelity 105-45 mg BID, Vraylar 3mg, Routine lab work and EKG reviewed Refills sent to pharmacy Will continue to bridge care in interim and plan to eventually transition to outpatient practice *Safety plan reviewed *Discharge diagnoses, treatment course, discharge plan have been reviewed with patient (including medication regime, medication management, potential side effects) as well as treatment rationale were also revisited *Discharge paperwork signed and given to patient, copy sent for scanning to chart Patient educated on: diagnosis and medication risk/benefits Informed Consent: understands Reason for contiued partial hosp. stay Substantial Risk for: inability to function (advocating for IOP for more skill building, no safety concerns) and stable for discharge Certification I certify that partial hospital treatment is medically necessary due to the symptoms and problems resulting from the patient's mental illness and the failure to treat the patient at the partial hospital level of care would likely result in the patient requiring inpatient psychiatric care which could not be prevented at a less intensive level of care. Total time managing care of this patient today __30__ minutes. Discharge Plan Discharge Attending provider: Taylor Judge Medications: Changed hydroxyzine HCl 25 mg tablet 25 mg PO QID PRN (Reason: anxiety/insomnia) Qty: 60 0RF Discontinued clonidine HCl 0.1 mg tablet 0.1 - 0.2 mg PO BEDTIME PRN (Reason: anxiety/insomnia) alprazolam 0.5 mg tablet 0.5 mg PO BID PRN (Reason: Anxiety) quetiapine 50 mg Tablet 50 mg PO BEDTIME Vraylar 3 mg capsule 3 mg PO DAILY Auvelity 45-105 mg tablet, IR and ER, biphasic 1 tab PO BID No Action lisdexamfetamine 70 mg capsule 70 mg PO QAM Qty: 30 0RF Rx Instructions: Partial Fill upon patient request. guanfacine 4 mg tablet extended release 24 hr 4 mg PO QAM 14 Days Qty: 14 0RF quetiapine 50 mg tablet 50 mg PO BID Qty: 30 0RF alprazolam 1 mg tablet 1 mg PO TID PRN (Reason: anxiety) 14 Days Qty: 42 0RF gabapentin 300 mg capsule 300 mg PO TID Qty: 42 0RF quetiapine 200 mg tablet 200 mg PO BEDTIME 30 Days Qty: 30 0RF lurasidone 120 mg tablet 120 mg PO QPM 30 Days Qty: 30 0RF Rx Instructions: must administer with food (at least 350 calories) Stand Alone Forms: Patient Portal Discharge page Patient Education: Bipolar Disorder (DC), PTSD (Post Traumatic Stress Disorder) (ED), PTSD (Post Traumatic Stress Disorder) (DC) Print Language: Maltese
== END 2024-10-25 23:59 | disposition home or self-care (01) ==
LOC: HO.PHPA 08:45
PROVIDERS: Visit Provider Psychiatry & Neurology Psychiatry
DX: F31.30 Bipolar disorder, current episode depressed, mild or moderate severity, unspecified (principal); F43.10 Post-traumatic stress disorder, unspecified; F41.1 Generalized anxiety disorder; F90.2 Attention-deficit hyperactivity disorder, combined type; F81.9 Developmental disorder of scholastic skills, unspecified; Z79.899 Other long term (current) drug therapy
CPT/HCPCS: 90791; 90853

== ENCOUNTER 2024-10-28 13:19 | Outpatient (RCR) | payer OTHER, SELFPAY ==
--- NOTE | 2024-11-02 08:52 | PC.NURSE ---
Estrada called out sick today. Told staff person Madalyn that he has been vomiting. I called and left Estrada a message to call me back to f/u. Awaiting call back.
--- NOTE | 2024-11-03 09:08 | PC.NURSE ---
Estrada called stating his stomach is bothering him and he will not be able to make it to program. He did not elaborate. I suggested he f/u with is PCP which he agreed. He reports he is safe, denied SI. I told him one of the clinicians will be calling him as he may need a reassessment to start the program when he is feeling better to do so.
--- NOTE | 2024-11-03 11:07 | HO.IOP ---
Apn spoke with Estrada ([phone]) to discuss him being unable to start the program due to his phsycial illness preventing him from coming for three days in a row. Apn discussed with Estrada about calling to get re-assessed to be in the program once he is feeling physically better and able to attend the full day of programming. Estrada reported that he would call when he was feeling better to have the re-assessment for starting the program. Estrada denied any current safety concerns and denied any questions of IOP staff at this time.
== END 2024-10-28 23:59 | disposition home or self-care (01) ==
LOC: HO.IOP 13:19
PROVIDERS: Visit Provider Psychiatry & Neurology Psychiatry
DX: F31.30 Bipolar disorder, current episode depressed, mild or moderate severity, unspecified (principal); F81.9 Developmental disorder of scholastic skills, unspecified
CPT/HCPCS: 90791

== ENCOUNTER → 2024-12-03 12:15 | Outpatient (BNV) | payer OTHER, SELFPAY | PROVIDERS: Visit Provider Psychiatry & Neurology Psychiatry | DX: F31.81 Bipolar II disorder (principal); F43.10 Post-traumatic stress disorder, unspecified; F90.2 Attention-deficit hyperactivity disorder, combined type; F81.9 Developmental disorder of scholastic skills, unspecified; F84.9 Pervasive developmental disorder, unspecified; F31.30 Bipolar disorder, current episode depressed, mild or moderate severity, unspecified; F41.1 Generalized anxiety disorder | CPT/HCPCS: 99214 ==

== ENCOUNTER 2024-12-07 12:00 | Outpatient (RCR) | payer OTHER, SELFPAY ==
[2024-11-24 09:35] VITALS: BMI 38.6
--- NOTE | 2024-11-24 10:15 | PC.ADMIT ---
Patient is a 29 year old single male who self referred back to [facility], patient was at [facility] in September, secondary to depression with SI however reports less so compared to the last time he was here. Reports financial stresses and has applied for disability recently with help from his case checker. 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 Patient reports he is using marijuana daily vaping throughout the day. Reports he is going to have to quit as he can not afford this in addition to smoking 1/2 PPD of cigarettes. Patient given smoking cessation tools along with written and verbal education including short and laborer marine terminal effects. Patient offered, however does not want to participate in, substance use groups at [facility] at this time. Patient identified sister as a support and reports sometimes his aunt and friends. Patient is alert and oriented x4. He is calm and cooperative. He presented with depressed mood and affect. When asked if Estrada was having suicidal thoughts he stated, not today . Patient reports he has had thoughts however denied any plans or intention of killing himself. He was given a copy of his safety plan if needed. Medications updated with patient and [facility] chart from last admission. He is taking medications as prescribed however he stated he sometimes takes 300 mg of Seroquel instead of 200 mg of Seroquel to sleep. Patient advised to take medications as prescribed. Medication education provided.
--- NOTE | 2024-11-25 15:04 | HO.PHP ---
Estrada's case was opened during weekly team treatment episode
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
--- NOTE | 2024-12-01 14:37 | HO.PHP ---
[employer] spoke with Estrada to check in per his request, Estrada reported that he needed extra support to process his emotions. [employer] met with Estrada and offered support. Estrada inquired about difference between sharing in group therapy versus individual therapy which ad writer provided education surrounding the difference. Estrada was able to de-escalate and return to group.
--- NOTE | 2024-12-03 19:27 | P.PNPSP_ITS ---
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 Continues to struggle financially ANxiety remains high especially in interactions with family/aunt, has been utilizing 2 mg of alprazolam regularly. feels like the only thing that helps but is open to trialing kerry He shares that he had taken something from his aunt because of obsessing over things when I'm stressed . (Was a treasure box with a burkett) and says he is really regretful and feels ashamed. Despite needing money he says this was not his motivation. Denies that is prone to stealing, says he usually would not do this but is caught up in fears about losing his apartment. Paranoid thoughts come and go (mostly around interactions iwth others. Still waiting for green assistence. He now has Medication Compliance: Yes Side effects from medications: No Attending Groups: Yes Review of Systems Acute medical concerns: No Mental Status Exam Mental Status Exam Narrative: Appearance: Casually dressed. Wearing dog collar. Eyes were closed for most of the interview Attitude:Cooperative Speech: Fluent and essentially wnl Motor activity: Calm and without any tics, tremors or dyskinesias. Steady gait Mood: as noted above Affect: appropriate, constricted Thought process: goal directed Thought content: as noted above. Perception: Denies AH/VH and does not appear to respond to internal stimuli Alert/oriented in all spheres Cognition-- not formally tested. Memory grossly intact for recent events Insight: generally intact Judgment: fair Diagnostics Vital Signs (24Hr): BMI result Body Mass Index 38.6 Assessment & Plan Assessment & Plan (1) Bipolar II disorder, severe, depressed, with anxious distress: Status: Acute Code(s): F31.81 - Bipolar II disorder (2) PTSD (post-traumatic stress disorder): Status: Acute Code(s): F43.10 - Post-traumatic stress disorder, unspecified (3) ADHD (attention deficit hyperactivity disorder), combined type: Status: Acute Code(s): F90.2 - Attention-deficit hyperactivity disorder, combined type (4) Learning disabilities: Status: Acute Code(s): F81.9 - Developmental disorder of scholastic skills, unspecified Assessment and Plan: Hx of learning disabilities r/o ASD or PDD (5) Pervasive developmental disorder: Status: Acute Code(s): F84.9 - Pervasive developmental disorder, unspecified (6) Bipolar affect, depressed: Status: Acute Code(s): F31.30 - Bipolar disorder, current episode depressed, mild or moderate severity, unspecified (7) ALYSSA (generalized anxiety disorder): Status: Acute Code(s): F41.1 - Generalized anxiety disorder Plan continue PHP continue Latuda 120 mg qd w meals continue guanfacine ER to 4 mg qam continue Vyvanse 70 mg qd ([place] approved) increase Seroquel to 200-300 mg qhs (sleeping well now) continue Seroquel at 25-50 mg BID-TID PRN agitation/mood/anxiety/paranoia in the interim (says is too sedating at 50 mg) start gabapentin 300 mg TID to target anxiety continue hydroxyzine hcl 25 mg TID prn anxiety increase alprazolam to 1 mg TID prn anxiety i short term (for next week or so) Routine lab work as indicated EKG, routine for baseline QTc for medication considerations as indicated UDS as indicated Continue to monitor Patient educated on: diagnosis, medication risk/benefits and substance abuse Informed Consent: understands Reason for contiued partial hosp. stay Substantial Risk for: inability to function, rapid decompensation and med/psych decompensation Certification I certify that partial hospital treatment is medically necessary due to the symptoms and problems resulting from the patient's mental illness and the failure to treat the patient at the partial hospital level of care would likely result in the patient requiring inpatient psychiatric care which could not be prevented at a less intensive level of care. Total time managing care of this patient today _30___ minutes. Discharge Plan Discharge Attending provider: Taylor Judge Medications: New quetiapine 50 mg tablet 50 mg PO BID Qty: 30 0RF gabapentin 300 mg capsule 300 mg PO TID Qty: 42 0RF Continued hydroxyzine HCl 25 mg tablet 25 mg PO QID PRN (Reason: anxiety/insomnia) Qty: 60 0RF lisdexamfetamine 70 mg capsule 70 mg PO QAM Qty: 30 0RF Rx Instructions: Partial Fill upon patient request. guanfacine 4 mg tablet extended release 24 hr 4 mg PO QAM 14 Days Qty: 14 0RF lurasidone 120 mg tablet 120 mg PO QPM 14 Days Qty: 14 0RF Rx Instructions: must administer with food (at least 350 calories) quetiapine 200 mg tablet 200 mg PO BEDTIME 30 Days Qty: 30 0RF Changed alprazolam 1 mg tablet 1 mg PO TID PRN (Reason: anxiety) 14 Days Qty: 42 0RF Discontinued alprazolam 0.5 mg tablet 0.5 mg PO BID PRN (Reason: Anxiety) Qty: 60 0RF olanzapine 2.5 mg tablet 2.5 mg PO BID PRN (Reason: agitation) Qty: 30 0RF Print Language: Arabic
--- NOTE | 2024-12-07 16:50 | P.PNPSP_ITS ---
Subjective Subjective Date of Service: 12/07/24 Reason For Visit: anxiety,depression Interim History: Patient seen for follow-up, anticipating discharge at the end of program today.? Still dealing with financial stressors and limited supports, feelings of loneliness. Continues to work on day structure. MOod is much better on Latuda. Anxiety intermittent due to stressors. Reports no other acute issues or concerns. Medication compliant, medications well-tolerated. Denies any adverse effects.? Mood is stable.? Denies any hopelessness or SI. Denies thoughts of harming self or others at this time. Denies any aggressive ideation or HI. Denies any paranoia or AH or VH. Sleep, appetite, energy stable. Medication Compliance: Yes Side effects from medications: No Attending Groups: Yes Mental Status Exam Mental Status Exam Narrative: Appearance: Casually dressed. Wearing dog collar. Eyes were closed for most of the interview Attitude:Cooperative Speech: Fluent and essentially wnl Motor activity: Calm and without any tics, tremors or dyskinesias. Steady gait Mood: better anxious Affect: appropriate, constricted Thought process: goal directed Thought content: as noted above. Perception: Denies AH/VH and does not appear to respond to internal stimuli Alert/oriented in all spheres Cognition-- not formally tested. Memory grossly intact for recent events Insight: generally intact Judgment: fair Diagnostics Vital Signs (24Hr): BMI result Body Mass Index 38.6 Assessment & Plan Assessment & Plan (1) Bipolar II disorder, severe, depressed, with anxious distress: Status: Acute Code(s): F31.81 - Bipolar II disorder (2) PTSD (post-traumatic stress disorder): Status: Acute Code(s): F43.10 - Post-traumatic stress disorder, unspecified (3) ADHD (attention deficit hyperactivity disorder), combined type: Status: Acute Code(s): F90.2 - Attention-deficit hyperactivity disorder, combined type (4) Learning disabilities: Status: Acute Code(s): F81.9 - Developmental disorder of scholastic skills, unspecified Assessment and Plan: Hx of learning disabilities r/o ASD or PDD (5) Pervasive developmental disorder: Status: Acute Code(s): F84.9 - Pervasive developmental disorder, unspecified (6) Bipolar affect, depressed: Status: Acute Code(s): F31.30 - Bipolar disorder, current episode depressed, mild or moderate severity, unspecified (7) ALYSSA (generalized anxiety disorder): Status: Acute Code(s): F41.1 - Generalized anxiety disorder Plan Discharge PHP continue Latuda 120 mg qd w meals continue guanfacine ER 4 mg qam continue Vyvanse 70 mg qd ([place] approved) continue Seroquel 200-300 mg qhs continue Seroquel 25-50 mg BID-TID PRN agitation/mood/anxiety/paranoia in the interim (says is too sedating at 50 mg) continue gabapentin 300 mg TID to target anxiety continue hydroxyzine hcl 25 mg TID prn anxiety continue alprazolam 1 mg BID-TID prn anxiety Will follow-up with this provider for medication management on outpatient basis *Safety plan reviewed *Discharge diagnoses, treatment course, discharge plan have been reviewed with patient (including medication regime, medication management, potential side effects) as well as treatment rationale were also revisited *Discharge paperwork signed and given to patient, copy sent for scanning to chart Patient educated on: diagnosis and medication risk/benefits Informed Consent: understands Reason for contiued partial hosp. stay Substantial Risk for: stable for discharge Certification I certify that partial hospital treatment is medically necessary due to the symptoms and problems resulting from the patient's mental illness and the failure to treat the patient at the partial hospital level of care would likely result in the patient requiring inpatient psychiatric care which could not be prevented at a less intensive level of care. Total time managing care of this patient today __30__ minutes. Discharge Plan Discharge Attending provider: Taylor Judge Medications: New quetiapine 50 mg tablet 50 mg PO BID Qty: 30 0RF gabapentin 300 mg capsule 300 mg PO TID Qty: 42 0RF Continued hydroxyzine HCl 25 mg tablet 25 mg PO QID PRN (Reason: anxiety/insomnia) Qty: 60 0RF lisdexamfetamine 70 mg capsule 70 mg PO QAM Qty: 30 0RF Rx Instructions: Partial Fill upon patient request. guanfacine 4 mg tablet extended release 24 hr 4 mg PO QAM 14 Days Qty: 14 0RF quetiapine 200 mg tablet 200 mg PO BEDTIME 30 Days Qty: 30 0RF lurasidone 120 mg tablet 120 mg PO QPM 30 Days Qty: 30 0RF Rx Instructions: must administer with food (at least 350 calories) Changed alprazolam 1 mg tablet 1 mg PO TID PRN (Reason: anxiety) 14 Days Qty: 42 0RF Discontinued alprazolam 0.5 mg tablet 0.5 mg PO BID PRN (Reason: Anxiety) Qty: 60 0RF olanzapine 2.5 mg tablet 2.5 mg PO BID PRN (Reason: agitation) Qty: 30 0RF Patient Education: Bipolar Disorder (DC), Autism Spectrum Disorder (DC), Autism Spectrum Disorder (GEN), Anxiety (ED) Print Language: Marshallese
== END 2024-12-07 23:59 | disposition home or self-care (01) ==
LOC: HO.PHPA 12:00
PROVIDERS: Visit Provider Psychiatry & Neurology Psychiatry
DX: F31.81 Bipolar II disorder (principal); F43.10 Post-traumatic stress disorder, unspecified; F90.2 Attention-deficit hyperactivity disorder, combined type; F81.9 Developmental disorder of scholastic skills, unspecified; F84.9 Pervasive developmental disorder, unspecified; F31.30 Bipolar disorder, current episode depressed, mild or moderate severity, unspecified; F41.1 Generalized anxiety disorder; Z79.899 Other long term (current) drug therapy
CPT/HCPCS: 90791; 90853

== ENCOUNTER → 2025-01-31 09:15 | Outpatient (BNV) | payer OTHER, SELFPAY | PROVIDERS: Visit Provider Psychiatry & Neurology Psychiatry | DX: F31.81 Bipolar II disorder (principal); F43.10 Post-traumatic stress disorder, unspecified; F90.2 Attention-deficit hyperactivity disorder, combined type; F84.9 Pervasive developmental disorder, unspecified; F81.9 Developmental disorder of scholastic skills, unspecified | CPT/HCPCS: 99204 ==

== ENCOUNTER 2025-02-02 08:19 | Outpatient (REF) | payer OTHER, SELFPAY ==
--- OUTSIDE RECORDS SUMMARY | 2025-02-02 08:34 | XMS_ITS | Clinical Summary ---
Author Organization [address] Address [address] [place] [id number] Phone Care Team Providers Care Solutions Manager Name Role Phone Uma Jamison MD Primary Care Provider [phone] Allergies Active Allergy Reactions Criticality Noted Date [...] cyst 07/27/2018 Depression 06/28/2016 Overweight 06/28/2016 Immunizations Immunization Administration Dates Next Due Influenza Quadravalent, MDCK [...] Years) (1 of 2 - PCV) 02/13/2012 HPV Vaccines (1 - 3-dose SCD M series) 02/13/2020 Social Influencers of Health Screening 02/27/2022 Cholesterol Screening (Lipid Panel) 03/05/2022 03/05/2017 Depression Screening 03/31/2024 COVID-19 Vaccine (4 - 2024-2 6 season) 2024 04/03/2021, 06/19/2020, 05/29/2020 Influenza Vaccine (#1) 2024 8, 01/10/2015 DTaP,Tdap,and Td Vaccines (3 - Td or Tdap) 06/28/2026 06/28/2016, 01/10/2015 RSV Immunization Adult Patients (1 - 1-dose 75+ series) 02/13/2068 HIV Screening Completed 03/05/2017 Hepatitis C Screening [...] (03/05/2017) Pathologist [facility] HIV Screening abstracted [facility] Provider HEALTH MAINTENANCE Final Result * Hepatitis C Screening (03/05/2017) Pathologist [facility] Hepatitis C Screening abstracted [facility] Provider HEALTH MAINTENANCE Final Result * (ABNORMAL) Lipid panel (03/05/2017) Pathologist [facility] LDL/HDL Ratio 3 0 - 4 Triglycerides 81 0 - 150 mg/dL Cholesterol 189 0 - 200 mg/dL HDL 55 >=40 mg/dL LDL Cholesterol 118(A) 0 - 100 mg/dL Blood Venous blood specimen / Unknown [facility] Provider LAB BLOOD ORDERABLES Romi l Result from Last 3 Months or Most Recently Relevant to Health Maintenance Insurance [facility] PLAN Care Teams Solutions Manager Relationship Specialty Start Date End Date Uma Jamison MD [address] [place] [address] PCP - General Internal Medicine 05/29/16
[2025-02-02 12:25] LABS: Alanine Aminotransferase 73 U/L (0-40); Albumin Level 4.8 g/dL (3.5-5.0); Alkaline Phosphatase 59 U/L (39-117); Aspartate Amino Transferase 50 U/L (5-37); Cholesterol 237 mg/dL (<200); HDL Cholesterol 50 mg/dL (>40); Total Protein 7.1 g/dL (6.5-8.0); Triglycerides 162 mg/dL (<150)
[2025-02-02 12:39] LABS: Thyroid Stimulating Hormone 1.77 uIU/mL (0.32-4.0)
== END 2025-02-02 08:20 | disposition home or self-care (01) ==
LOC: HO.LAB 08:19
PROVIDERS: PCP Internal Medicine; Visit Provider Psychiatry & Neurology Psychiatry
DX: F31.0 Bipolar disorder, current episode hypomanic (principal)
CPT/HCPCS: 36415; 80061; 80076; 83036; 84443

== ENCOUNTER 2025-02-11 09:15 | Outpatient (RCR) | payer OTHER, SELFPAY ==
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
[2025-01-31 11:50] VITALS: BMI 41.7
[2025-01-31 11:51] VITALS: BP 124/92; PULSE 100; TEMP 37.3
--- NOTE | 2025-01-31 14:38 | PC.ADMIT ---
Patient is a 29 year old single male who was referred to [facility] by his prescriber secondary to depression and anxiety sxs. Patient reports this is the anniversary of his parents passing and is grieving their loss. Patient also reports that he is having negative thoughts about himself and others along with irritability and anger towards his family. Patient feels his family has not been that supportive. Patient identified his supports stating, My sister, my aunt (she is there but not the most supportive) and I have my ex-boyfriend and my friend Gabriele. 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 Patient mentioned a grief support group out of [facility] that he has been trying to get into. Patient would like to participate in this after discharge. He plans on talking to a [facility] clinician to set this up. Patient stated he is grieving his parents. Patient is alert and oriented x4. He is calm and cooperative. He presented with depressed mood and affect. He denied SI. He was given a copy of his safety plan if needed. Patient reports he uses marijuana daily once a day. Denied any other substance use. Medications updated with patient and patient's pharmacy in addition to his medical record. Patient stated he is no longer on Seroquel 50 mg or Gabapentin both of which have not been filled since November for a 15 day supply each.
--- NOTE | 2025-02-03 14:50 | HO.PHP ---
Clients case was opened and reviewed in teams.
--- NOTE | 2025-02-09 12:13 | HO.PHP ---
[facility] staff member met with Estrada due to him continuing to process triggering events that are affecting group members. PHP staff member engaged in conversation with Estrada around what is appropriate to disclose in the group setting and what is not. Estrada said that he has a difficult time with this because sometimes he becomes triggered by what others say and he wants to process the situation that was brought up for him in that moment. PHP staff provided him with verbal prompts around how he can communicate that to the group without it being a trigger. Estrada continued to voice that it is hard for him. PHP staff said that she wants to protect him and the group, in which PHP staff member suggested that if it is too challenging for him to not go into traumatic details, then she is going to suggest that he focuses on exploring health coping skills, to learn how to better manage his triggers when they occur. PHP staff stated that if he would like to process his trauma, that is more appropriate for individual therapy. Estrada agreed and stated that he does process it with his individual therapist. PHP staff member assessed for safety, in which he reported thoughts of SI without a plan or intent. Estrada said that he will be in attendance to program tomorrow, although he has to leave early today and tomorrow due to needing to meet with his criminal justice social worker and get paperwork prepped. Estrada was able to return to group.
--- NOTE | 2025-02-10 21:27 | HO.PHPPROGNO ---
Subjective Subjective Date of Service: 02/08/25 Reason For Visit: anxiety,depression Interim History: Has had more morbid ruminations, noting that January is a difficult month for him. Anniversaries of both his parents passing away occurred in the first 2 weeks of the month, followed up by his birthday on the . Says he usually goes to his aunts house but can feel more lonely around his relatives as they are generally not supportive and have strong political opinions, many of which he disagrees with. He is especially anxious about losing his SNAP benefits due to government shut-down. Says he has been getting irritable at times in groups, some of this is just being in a low mood and not having an outlet for it as he is often called out for making more provocative or triggering comments. Denies any intention or plan to harm self but says he does think about and talk about suicide perhaps everyday. No SIB. NO AI or HI. Medication Compliance: Yes Side effects from medications: No Attending Groups: Yes Review of Systems Acute medical concerns: No Mental Status Exam Mental Status Exam Patient Appearance: Well Grooomed Patient Orientation: Person, Place, Time and Situation Level of Consciousness: Awake Patient Behavior: Appropriate, Dependent, Cooperative, Passive and Poor Eye Contact Mood Description: Anxious Affect Description: Apprehensive Patient Cognition Impaired: No Ability to Follow Directions: Fair Speech Pattern: Clear Thought Process: Intact Thought Content: positive for Circumstantial and positive for Suicidal Ideation (denies intention or plan to act ) Depressive Symptoms: Low Self Esteem Abnormal Motor Activity Signs and Symptoms: Restlessness Judgement: Fair Diagnostics Vital Signs (24Hr): BMI result Body Mass Index 41.7 Assessment & Plan Assessment & Plan (1) Bipolar II disorder, severe, depressed, with anxious distress: Status: Acute Code(s): F31.81 - Bipolar II disorder (2) PTSD (post-traumatic stress disorder): Status: Acute Code(s): F43.10 - Post-traumatic stress disorder, unspecified (3) ADHD (attention deficit hyperactivity disorder), combined type: Status: Acute Code(s): F90.2 - Attention-deficit hyperactivity disorder, combined type (4) Pervasive developmental disorder: Status: Acute Code(s): F84.9 - Pervasive developmental disorder, unspecified (5) Learning disabilities: Status: Acute Code(s): F81.9 - Developmental disorder of scholastic skills, unspecified Plan continue treatment regime Patient educated on: diagnosis and medication risk/benefits Informed Consent: understands Reason for contiued partial hosp. stay Substantial Risk for: inability to function, rapid decompensation and med/psych decompensation Certification I certify that partial hospital treatment is medically necessary due to the symptoms and problems resulting from the patient's mental illness and the failure to treat the patient at the partial hospital level of care would likely result in the patient requiring inpatient psychiatric care which could not be prevented at a less intensive level of care. Total time managing care of this patient today __30__ minutes. Discharge Plan Discharge Attending provider: Taylor Judge Medications: New nicotine 14 mg/24 hr patch 24 hour 1 patch transdermal Q24H Qty: 28 0RF gabapentin 800 mg tablet 400 - 800 mg PO BID PRN (Reason: anxiety) Qty: 20 0RF bupropion HCl 100 mg tablet sustained-release 12 hr 200 mg PO QAM Qty: 30 0RF Continued lisdexamfetamine [Vyvanse] 70 mg capsule 70 mg PO QAM Qty: 30 0RF Rx Instructions: Partial Fill upon patient request. =Brand Name Only= hydroxyzine HCl 25 mg tablet 25 mg PO QID PRN (Reason: anxiety/insomnia) Qty: 60 0RF quetiapine 400 mg tablet 400 mg PO BEDTIME Qty: 30 0RF guanfacine 4 mg tablet extended release 24 hr 4 mg PO QAM 30 Days Qty: 30 0RF Rx Instructions: Last filled 12/27/24 Discontinued alprazolam 1 mg tablet 1 mg PO TID PRN (Reason: anxiety) 15 Days Qty: 45 1RF gabapentin 300 mg capsule 300 mg PO TID Qty: 42 0RF Rx Instructions: Last filled 12/03/24 for 15 day supply. Patient stated he is not on this medication currently. No Action lurasidone 120 mg tablet 120 mg PO QPM 30 Days Qty: 30 2RF Rx Instructions: must administer with food (at least 350 calories) alprazolam 1 mg tablet 1 mg PO TID PRN (Reason: anxiety) 15 Days Qty: 45 0RF Stand Alone Forms: Patient Portal Discharge page Patient Education: Bipolar Disorder (ED), Bipolar Disorder (DC) Print Language: Pashto
--- NOTE | 2025-02-11 20:54 | HO.PHPPROGNO ---
Subjective Subjective Date of Service: 02/11/25 Reason For Visit: anxiety,depression Interim History: Patient seen for follow-up, anticipating discharge at the end of program today.? Feeling overstimulated in the moment. He had been worrying about SNAP benefits getting cut in the next day or 2 due to but was able to really appreciative of having staff and peers surprise him at the end of the last group. He is still waiting to hear back from [employer]. His case loader operator helping with this. Reports no acute issues or concerns. Medication compliant, medications well-tolerated. Denies any adverse effects.? Mood is stable, less depressed. Reports continued morbid ruminations about chronic SI but says has no intention to act on these thoughts. Denies any hopelessness or active SI. Denies thoughts of harming self or others at this time. Denies any aggressive ideation or HI. Denies any paranoia or AH or VH. Sleep, appetite, energy stable. Medication Compliance: Yes Side effects from medications: No Attending Groups: Yes Review of Systems Acute medical concerns: No Mental Status Exam Mental Status Exam Narrative: Alert, oriented, in no acute distress. Calm, cooperative. Mood stable, affect appropriate. Speech normal. Thought process linear, coherent, more goal-directed. Thought content related to stressors, future-oriented, denies any helplessness, hopelessness or SI.? No aggressive ideation or HI. No paranoia or delusional content elicited. No evidence of psychosis. Insight and judgment fair-good. Diagnostics Vital Signs (24Hr): BMI result Body Mass Index 41.7 Assessment & Plan Assessment & Plan (1) Bipolar II disorder, severe, depressed, with anxious distress: Status: Acute Code(s): F31.81 - Bipolar II disorder (2) PTSD (post-traumatic stress disorder): Status: Acute Code(s): F43.10 - Post-traumatic stress disorder, unspecified (3) ADHD (attention deficit hyperactivity disorder), combined type: Status: Acute Code(s): F90.2 - Attention-deficit hyperactivity disorder, combined type (4) Pervasive developmental disorder: Status: Acute Code(s): F84.9 - Pervasive developmental disorder, unspecified (5) Learning disabilities: Status: Acute Code(s): F81.9 - Developmental disorder of scholastic skills, unspecified Plan [facility]charge from [facility] Continue regular medications? Refills sent to pharmacy Will defer further medication management to outpatient provider *Safety plan reviewed *Discharge diagnoses, treatment course, discharge plan have been reviewed with patient (including medication regime, medication management, potential side effects) as well as treatment rationale were also revisited *Discharge paperwork signed and given to patient, copy sent for scanning to chart Patient educated on: diagnosis and medication risk/benefits Informed Consent: understands Reason for contiued partial hosp. stay Substantial Risk for: stable for discharge Certification I certify that partial hospital treatment is medically necessary due to the symptoms and problems resulting from the patient's mental illness and the failure to treat the patient at the partial hospital level of care would likely result in the patient requiring inpatient psychiatric care which could not be prevented at a less intensive level of care. Total time managing care of this patient today __40__ minutes. Discharge Plan Discharge Attending provider: Taylor Judge Medications: New nicotine 14 mg/24 hr patch 24 hour 1 patch transdermal Q24H Qty: 28 0RF gabapentin 800 mg tablet 400 - 800 mg PO BID PRN (Reason: anxiety) Qty: 20 0RF bupropion HCl 100 mg tablet sustained-release 12 hr 200 mg PO QAM Qty: 30 0RF Continued hydroxyzine HCl 25 mg tablet 25 mg PO QID PRN (Reason: anxiety/insomnia) Qty: 60 0RF guanfacine 4 mg tablet extended release 24 hr 4 mg PO QAM 30 Days Qty: 30 0RF Rx Instructions: Last filled 12/27/24 Discontinued quetiapine 400 mg tablet 400 mg PO BEDTIME Qty: 30 0RF alprazolam 1 mg tablet 1 mg PO TID PRN (Reason: anxiety) 15 Days Qty: 45 1RF gabapentin 300 mg capsule 300 mg PO TID Qty: 42 0RF Rx Instructions: Last filled 12/03/24 for 15 day supply. Patient stated he is not on this medication currently. No Action lurasidone 120 mg tablet 120 mg PO QPM 30 Days Qty: 30 2RF Rx Instructions: must administer with food (at least 350 calories) alprazolam 1 mg tablet 1 mg PO TID PRN (Reason: anxiety) 15 Days Qty: 45 0RF quetiapine 400 mg tablet 400 mg PO BEDTIME Qty: 30 0RF lisdexamfetamine [Vyvanse] 70 mg capsule 70 mg PO QAM Qty: 30 0RF Rx Instructions: Partial Fill upon patient request. =Brand Name Only= Stand Alone Forms: Patient Portal Discharge page Patient Education: Bipolar Disorder (ED), Bipolar Disorder (DC) Print Language: Sami
== END 2025-02-11 23:59 | disposition home or self-care (01) ==
LOC: HO.PHPA 09:15
PROVIDERS: Visit Provider Psychiatry & Neurology Psychiatry
DX: F31.81 Bipolar II disorder (principal); F43.10 Post-traumatic stress disorder, unspecified; F90.2 Attention-deficit hyperactivity disorder, combined type; F84.9 Pervasive developmental disorder, unspecified; F81.9 Developmental disorder of scholastic skills, unspecified; Z79.899 Other long term (current) drug therapy
CPT/HCPCS: 90791; 90853